=== PATIENT | female | born 1955 | race Caucasian/White ===

== ENCOUNTER 2020-09-12 11:49 | Outpatient (REF) | payer MEDICARE, MEDICAID, SELFPAY ==
--- NOTE | 2020-09-12 11:53 | MM_ITS ---
EXAMINATION: MM SCREENING DIGITAL BREAST TOMOSYNTHESIS, BILATERAL CLINICAL INFORMATION: Screening. Asymptomatic. The lifetime risk of breast cancer based on the Tyrer-Cuzick Model is 9%. COMPARISON: Mammography: 08/16/2019, 05/03/2018, 04/22/2017 TECHNIQUE: Digital breast tomosynthesis is performed in both the craniocaudal and mediolateral oblique views along with computer-aided detection (CAD). Synthesized 2D images are generated from the tomosynthesis. FINDINGS: There are scattered areas of fibroglandular density (ACR BI-RADS breast composition Category b). There is no suspicious mass or architectural abnormality. No abnormal calcifications. Left breast shows no significant change. The axilla and skin contours are unremarkable. Right breast has a 4 x 5 mm circumscribed nodule mid 5:30-6:00 position best appreciated on tomography, not seen with certainty on prior study. This may represent a small cyst. Patient will be recalled for additional imaging. MM/MM tomosynthesis screening BI IMPRESSION: 1. Right: Small circumscribed nodule mid 5:30- 6:00 position, possibly a cyst. 2. Left: No mammographic evidence of malignancy. ASSESSMENT: BI-RADS 0: Incomplete - Need Additional Imaging Evaluation RECOMMENDATION: 1. Targeted ultrasound right breast. 2. Radiology department staff will contact the patient for additional imaging. This patient's information was entered into a reminder system with a target due date for their next mammogram.
== END 2020-09-12 11:50 | disposition home or self-care (01) ==
LOC: HO.MAMMO 11:49
PROVIDERS: PCP Internal Medicine; Visit Provider Internal Medicine
DX: Z12.31 Encounter for screening mammogram for malignant neoplasm of breast (principal)
CPT/HCPCS: 77063; 77067

== ENCOUNTER 2020-10-09 11:00 | Outpatient (REF) | payer MEDICARE, MEDICAID, SELFPAY ==
--- NOTE | 2020-10-09 11:05 | US_ITS ---
EXAMINATION: US DIAGNOSTIC ULTRASOUND BREAST, RIGHT CLINICAL INFORMATION: Recall from screening for circumscribed nodule inferior right breast. COMPARISON: Mammography 09/12/2020; outside exams 08/16/2019 and 05/03/2018. TECHNIQUE: Ultrasound right breast is targeted to the lower quadrant. Grayscale imaging and color Doppler are performed without and with harmonics. FINDINGS: There are 2 adjacent circumscribed nodules 5:00 to 6:00 position 3 cm from nipple, the larger measuring 5 x 5 x 3 mm and the smaller 4 x 3 mm. Both shows smooth margins and increased through-transmission of sound at real-time imaging and no associated color flow. There are low level internal echoes, possibly protein content related to mildly complicated cyst. No internal septation or solid component. In retrospect, there is a small nodule in the lower right breast suggested on outside right CC view 2018. Results are discussed with the patient at time of visit. US/US breast RT limited IMPRESSION: 2 circumscribed nodules likely mildly complicated cyst lower right breast, 5 mm and 4 mm, with low level internal echoes. ASSESSMENT: BI-RADS 3: Probably Benign RECOMMENDATION: Diagnostic right mammography in 6 months. This patient's information was entered into a reminder system with a target due date for their next mammogram.
== END 2020-10-09 11:01 | disposition home or self-care (01) ==
LOC: HO.MAMMO 11:00
PROVIDERS: Visit Provider Internal Medicine
DX: N63.14 Unspecified lump in the right breast, lower inner quadrant (principal)
CPT/HCPCS: 76642

== ENCOUNTER 2021-01-07 15:28 | Outpatient (REF) | payer MEDICARE, MEDICAID, SELFPAY ==
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
== END 2021-01-07 15:29 | disposition home or self-care (01) ==
LOC: HO.SH 15:28
PROVIDERS: Visit Provider Internal Medicine
DX: Z46.1 Encounter for fitting and adjustment of hearing aid (principal); H90.3 Sensorineural hearing loss, bilateral
CPT/HCPCS: 92557; 92567; 92593; 99499

== ENCOUNTER 2021-01-09 15:21 | Outpatient (REF) | payer MEDICARE, MEDICAID, SELFPAY | END 2021-01-09 15:22 | disposition home or self-care (01) | LOC: HO.HAP 15:21 | PROVIDERS: Visit Provider Internal Medicine | DX: Z13.89 Encounter for screening for other disorder (principal) ==

== ENCOUNTER 2021-01-22 14:19 | Outpatient (REF) | payer MEDICARE, MEDICAID, SELFPAY | END 2021-01-22 14:20 | disposition home or self-care (01) | LOC: HO.HAP 14:19 | PROVIDERS: Visit Provider Internal Medicine | DX: Z46.1 Encounter for fitting and adjustment of hearing aid (principal) | CPT/HCPCS: V5014; V5266 ==

== ENCOUNTER 2021-02-20 10:09 | Outpatient (REF) | payer MEDICARE, MEDICAID, SELFPAY ==
[2021-02-20 11:40] LABS: MANUAL DIFF FLAG NO
[2021-02-20 11:44] LABS: Basophils Percent Auto 0.5 % (0-2); Eosinophils Absolute Auto 0.3 X10*3/uL (0.0-0.4); Eosinophils Percent Auto 3.7 % (0-4); Hematocrit 39.8 % (37-47); Hemoglobin 12.9 g/dl (12.0-16.0); Imm Gran Abs Auto 0.03 X10*3/uL (0.00-0.03); Imm Gran Pct Auto 0.3 % (0.0-0.4); Lymphocytes Absolute Auto 2.5 X10*3/uL (1.2-4.9); Lymphocytes Percent Auto 29.2 % (20-40); Mean Corpuscular HGB Conc 32.4 g/dl (31.0-35.0); Mean Corpuscular Volume 86.3 fL (80-98); Mean Platelet Volume 10.2 fL (9.4-12.3); Monocytes Absolute Auto 0.7 X10*3/uL (0.1-1.2); Monocytes Percent Auto 8.2 % (2-11); Neutrophils Percent Auto 58.1 % (45-73); Platelet Count 230 X10*3/uL (160-400); Red Blood Count 4.61 X10*6/uL (4.20-5.50); Red Cell Distribution Width 13.3 % (11.0-16.0); White Blood Count 8.6 X10*3/uL (4.8-10.8)
[2021-02-20 12:06] LABS: Alanine Aminotransferase 21 U/L (0-31); Albumin Level 4.3 g/dL (3.5-5.0); Alkaline Phosphatase 64 U/L (39-117); Anion Gap 11 (12-20); Aspartate Amino Transferase 20 U/L (5-31); Bilirubin Total 0.8 mg/dL (0.0-1.0); Blood Urea Nitrogen 16 mg/dL (9-16); Calcium 9.6 mg/dL (8.4-10.2); Carbon Dioxide 31 mmol/L (22-29); Chloride 103 mmol/L (96-108); Cholesterol 153 mg/dL; Estimated Glomerular Filt Rate > 60; Glucose Random 118 mg/dL (60-115); HDL Cholesterol 37 mg/dL; LDL Cholesterol Calculated 91 mg/dl; Sodium 141 mmol/L (135-145); Total Protein 6.9 g/dL (6.5-8.0); Triglycerides 125 mg/dL
[2021-02-20 12:29] LABS: Free T4 (Free Thyroxine) 0.88 ng/dL (0.71-1.85); Thyroid Stimulating Hormone 1.76 uIU/mL (0.32-4.0); Vitamin D 25-OH Total 41.6 ng/mL (>30)
[2021-02-20 13:03] LABS: Folate > 20.0 ng/mL (> or = 4.0); Vitamin B12 855 pg/mL (200-900)
== END 2021-02-20 10:10 | disposition home or self-care (01) ==
LOC: HO.LAB 10:09
PROVIDERS: PCP Internal Medicine; Visit Provider Internal Medicine
DX: E78.00 Pure hypercholesterolemia, unspecified (principal); I10 Essential (primary) hypertension
CPT/HCPCS: 36415; 80053; 80061; 82306; 82607; 82746; 84439; 84443; 85025

== ENCOUNTER 2021-03-19 10:34 | Outpatient (REF) | payer MEDICARE, MEDICAID, SELFPAY ==
--- NOTE | ~2021-03-19 | MM_ITS ---
EXAMINATION: BONE DENSITOMETRY CLINICAL INDICATION: Osteopenia. COMPARISON: None (current study represents initial baseline exam). TECHNIQUE: Using a [employer] DXA System (software version: 13.1) manufactured by [employer], dual-energy x-ray absorptiometry was performed of the lumbar spine and left hip. The images are of good technical quality. Summary results are attached. FINDINGS: AP SPINE L1-L4: BMD 1.245 g/cm2, Z-score 1.4, T-score 0.5, normal. LEFT FEMUR, NECK: BMD 0.800 g/cm2, Z-score -0.7, T-score -1.7, osteopenia. LEFT FEMUR, TOTAL: BMD 1.026 g/cm2, Z-score 0.9, T-score 0.1, normal. IDENTIFIED RISK FACTORS: Early menopause, height loss, hysterectomy, secondary osteoporosis. HISTORY OF FRACTURE: None listed. MEDICATIONS: Calcium, vitamin D. MM/XR DEXA axial skeleton IMPRESSION: 1. DIAGNOSIS: Osteopenia based on the lowest T-score value of -1.7 in the femoral neck applying World Health Organization criteria. 2. 10-YEAR FRACTURE RISK PREDICTION, FRAX: Major osteoporotic fracture (clinical spine, forearm, hip or shoulder) 9.1%. Hip fracture 1.1%. 3. Treatment Recommendations: NOF guidelines recommend consideration for treatment in postmenopausal women and men age 50 and older presenting with the following: -A hip or vertebral (clinical or morphometric) fracture. -T-score less than or equal to -2.5 at the femoral neck or spine after appropriate evaluation to exclude secondary causes. -Low bone mass at the hip or spine and a 10-year fracture probability by FRAX of greater than or equal to 3% for hip fracture or greater than or equal to 20% for major osteoporotic fracture based on the [place] adapted WHO algorithm. 4. Other Recommendations: All treatment decisions require clinical judgment and consideration of individual patient factors, including patient preferences, comorbidities, previous drug use, risk factors not captured in the FRAX model (e.g. frailty, falls, vitamin D deficiency, increased bone turnover, interval significant decline in bone density) and possible under or overestimation of fracture risk by FRAX. Additional medical evaluation for secondary cause of low bone mineral density may be appropriate. FUTURE SCAN RECOMMENDATION: People with diagnosed cases of osteoporosis or at high risk for fracture should have regular bone mineral density tests. For patients eligible for Medicare, routine testing is allowed once every 2 years. The testing frequency can be increased to one year for patients who have rapidly progressing disease, those who are receiving or discontinuing medical therapy to restore bone mass, or have additional risk factors.
== END 2021-03-19 10:35 | disposition home or self-care (01) ==
LOC: HO.MAMMO 10:34
PROVIDERS: Visit Provider Internal Medicine
DX: M81.8 Other osteoporosis without current pathological fracture (principal); M85.89 Other specified disorders of bone density and structure, multiple sites; Z78.0 Asymptomatic menopausal state; Z90.710 Acquired absence of both cervix and uterus
CPT/HCPCS: 77080

== ENCOUNTER → 2021-03-20 12:49 | Outpatient (REF) | payer MEDICARE, MEDICAID, SELFPAY | LOC: HO.SL 12:49 | PROVIDERS: PCP Internal Medicine; Visit Provider Internal Medicine | DX: G47.10 Hypersomnia, unspecified (principal); G47.33 Obstructive sleep apnea (adult) (pediatric) | CPT/HCPCS: 95806 ==

== ENCOUNTER 2021-04-08 12:24 | Outpatient (REF) | payer MEDICARE, MEDICAID, SELFPAY ==
--- NOTE | ~2021-04-08 | MM_ITS ---
EXAMINATION: MM DIAGNOSTIC DIGITAL BREAST TOMOSYNTHESIS, RIGHT CLINICAL INFORMATION: 2 small circumscribed nodules lower right breast for short interval six-month follow-up. The lifetime risk of breast cancer based on the Tyrer-Cuzick Model is 7%. COMPARISON: Mammography: 09/12/2020 (BI-RADS 0), outside mammography 08/16/2019 and 05/03/2018 ([facility]); targeted right breast ultrasound 10/09/2020. TECHNIQUE: Digital breast tomosynthesis is performed in both the craniocaudal and mediolateral oblique views along with computer-aided detection (CAD). Synthesized 2D images are generated from the tomosynthesis. FINDINGS: There are scattered areas of fibroglandular density (ACR BI-RADS breast composition Category b). The 2 small nodules 5:30 o'clock mid right breast are stable to borderline decreased. There is no developing density or architectural abnormality or abnormal calcifications. Left breast will be reassessed again at time of annual bilateral exam, due in 6 months. Results are provided to the patient at time of visit by the technologist. MM/MM tomosynthesis diagnostic RT IMPRESSION: Probable benign nodularity mid lower right breast stable to borderline decreased. ASSESSMENT: BI-RADS 3: Probably Benign RECOMMENDATION: Diagnostic mammography at time of bilateral annual exam, due in 6 months. This patient's information was entered into a reminder system with a target due date for their next mammogram.
== END 2021-04-08 12:25 | disposition home or self-care (01) ==
LOC: HO.MAMMO 12:24
PROVIDERS: PCP Internal Medicine; Visit Provider Internal Medicine
DX: N63.14 Unspecified lump in the right breast, lower inner quadrant (principal)
CPT/HCPCS: 77061; 77065

== ENCOUNTER 2021-05-07 13:01 | Outpatient (REF) | payer MEDICARE, MEDICAID, SELFPAY ==
--- NOTE | 2021-05-07 13:08 | EEG_ITS ---
The waking background activity consists of a well-defined moderate voltage posterior 9 to 10 hertz alpha frequency, intermixed anteriorly with low-voltage fast frequencies. Drowsiness is characterized by diffuse theta slowing. During sleep, symmetrical frontal central sleep spindles and vertex sharp transients developed over both hemispheres. Arousals are unremarkable. The patient remains asymptomatic. No focal, lateralizing, or paroxysmal discharges seen. IMPRESSION: This 24-hour ambulatory EEG is within normal limits. MD DELANEY Meléndez/MONIQUE / [phone]
== END 2021-05-07 13:02 | disposition home or self-care (01) ==
LOC: HO.NEURO 13:01
PROVIDERS: Visit Provider Psychiatry & Neurology Neurology
DX: G40.909 Epilepsy, unspecified, not intractable, without status epilepticus (principal)
CPT/HCPCS: 95708; 95957

== ENCOUNTER 2021-05-09 14:24 | Outpatient (REF) | payer MEDICARE, MEDICAID, SELFPAY ==
[2021-05-09 15:33] LABS: MANUAL DIFF FLAG NO
[2021-05-09 15:42] LABS: Basophils Percent Auto 0.3 % (0-2); Eosinophils Absolute Auto 0.3 X10*3/uL (0.0-0.4); Eosinophils Percent Auto 3.1 % (0-4); Hematocrit 38.9 % (37-47); Hemoglobin 13.1 g/dl (12.0-16.0); Imm Gran Abs Auto 0.03 X10*3/uL (0.00-0.03); Imm Gran Pct Auto 0.3 % (0.0-0.4); Lymphocytes Absolute Auto 2.7 X10*3/uL (1.2-4.9); Lymphocytes Percent Auto 24.5 % (20-40); Mean Corpuscular HGB Conc 33.7 g/dl (31.0-35.0); Mean Corpuscular Hemoglobin 29.2 pg (27.0-33.0); Mean Corpuscular Volume 86.8 fL (80-98); Mean Platelet Volume 9.8 fL (9.4-12.3); Monocytes Absolute Auto 0.7 X10*3/uL (0.1-1.2); Monocytes Percent Auto 6.5 % (2-11); Neutrophils Absolute Auto 7.3 X10*3/uL (2.0-8.3); Neutrophils Percent Auto 65.3 % (45-73); Platelet Count 228 X10*3/uL (160-400); Red Blood Count 4.48 X10*6/uL (4.20-5.50); Red Cell Distribution Width 13.1 % (11.0-16.0); White Blood Count 11.1 X10*3/uL (4.8-10.8)
[2021-05-10 11:01] LABS: Immunoglobulin E 22 kU/L (<OR=114)
== END 2021-05-09 14:25 | disposition home or self-care (01) ==
LOC: HO.LAB 14:24
PROVIDERS: PCP Internal Medicine; Visit Provider Internal Medicine Pulmonary Disease
DX: G47.33 Obstructive sleep apnea (adult) (pediatric) (principal); J45.20 Mild intermittent asthma, uncomplicated; Z79.899 Other long term (current) drug therapy; Z91.09 Other allergy status, other than to drugs and biological substances
CPT/HCPCS: 36415; 82785; 85025; 86003; 99202

== ENCOUNTER 2021-05-30 13:48 | Outpatient (REF) | payer MEDICARE, MEDICAID, SELFPAY ==
--- NOTE | 2021-05-30 17:13 | PFT_ITS ---
Forced vital capacity, FEV1, [id number] are all markedly decreased. MVV is slightly decreased. Post bronchodilator therapy, there is no significant change. Total lung capacity and residual volume moderately decreased. Diffusion capacity is also moderately decreased. CONCLUSION: Moderately severe restrictive pulmonary disorder. A mild degree of obstructive airway disorder involving small airways. No significant response to bronchodilator therapy. MD LORENZO Zarate/MONIQUE / [phone]
== END 2021-05-30 13:49 | disposition home or self-care (01) ==
LOC: HO.RESP 13:48
PROVIDERS: PCP Internal Medicine; Visit Provider Internal Medicine Pulmonary Disease
DX: J45.20 Mild intermittent asthma, uncomplicated (principal)
CPT/HCPCS: 94060; 94727; 94729

== ENCOUNTER → 2021-06-04 13:50 | Outpatient (BNVA) | payer MEDICARE, MEDICAID, SELFPAY | PROVIDERS: PCP Internal Medicine; Visit Provider Internal Medicine Pulmonary Disease | DX: G47.33 Obstructive sleep apnea (adult) (pediatric) (principal); J45.20 Mild intermittent asthma, uncomplicated | CPT/HCPCS: 99212 ==

== ENCOUNTER 2021-11-01 13:47 | Outpatient (REF) | payer MEDICARE, MEDICAID, SELFPAY ==
--- NOTE | ~2021-11-01 | MM_ITS ---
EXAMINATION: MM DIAGNOSTIC DIGITAL BREAST TOMOSYNTHESIS, BILATERAL Targeted left breast ultrasound. CLINICAL INFORMATION: Six-month follow-up right breast densities. Family history of breast cancer. The lifetime risk of breast cancer based on the Tyrer-Cuzick Model is 8.7%. COMPARISON: Mammography: April 08, 2021 and studies dating back to April 22, 2017. TECHNIQUE: Digital breast tomosynthesis is performed in both the craniocaudal and mediolateral oblique views along with computer-aided detection (CAD). Synthesized 2D images are generated from the tomosynthesis. Targeted left breast ultrasound. FINDINGS: There are scattered areas of fibroglandular density (ACR BI-RADS breast composition Category b). Previously noted right breast densities are not evident or are smaller and therefore ultrasound was not performed of the right breast. There is a stable parenchymal pattern of the right breast. There are noted to be 3 circumscribed densities about the lateral aspect of the left breast measuring from 5 to 4 mm in size with one lying approximately 1.4 cm from nipple, a second approximately 5 cm from nipple, and the third approximately 8 cm from the nipple. Targeted ultrasound to the lateral aspect of the left breast demonstrated at the 5 o'clock position approximately 2 cm and nipple a hypoechoic circumscribed lesion measuring approximately 5 x 4 x 3 mm in size with mild distal sound enhancement and no internal vascularity likely representing a complex cyst. At approximately the 3 o'clock position 7 cm from nipple there is a 3 x 4 x 3 mm circumscribed heterogeneous hypoechoic lesion without distal sound shadowing or enhancement. No internal vascularity is appreciated. The lesion is wider than it is tall. This does appear to be solid. There are also noted to be a few scattered simple appearing cyst. Results are discussed with the patient at time of visit. MM/MM tomosynthesis diagnostic BI IMPRESSION: 1. No significant right breast findings identified. 2. Multiple circumscribed densities lateral aspect of the left breast some of which appear to represent cysts but one which appears solid and the other representing a complex cyst. Recommend 6 month follow-up left breast mammogram and ultrasound examination. ASSESSMENT: BI-RADS 3: Probably Benign RECOMMENDATION: Diagnostic mammography in 6 months. This patient's information was entered into a reminder system with a target due date for their next mammogram.
--- NOTE | ~2021-11-01 | US_ITS ---
EXAMINATION: US DIAGNOSTIC ULTRASOUND BREAST, LEFT CLINICAL INFORMATION: Left breast nodules. COMPARISON: Mammography of same day. TECHNIQUE: Ultrasound of the breast is performed with real-time carney scale imaging and color Doppler. FINDINGS: Targeted ultrasound to the lateral aspect of the left breast demonstrated at the 5:00 position approximately 2 cm and nipple a hypoechoic circumscribed lesion measuring approximately 5 x 4 x 3 mm in size with mild distal sound enhancement and no internal vascularity likely representing a complex cyst. At approximately the 3:00 position 7 cm from nipple there is a 3 x 4 x 3 mm circumscribed heterogeneous hypoechoic lesion without distal sound shadowing or enhancement. No internal vascularity is appreciated. The lesion is wider than it is tall. This does appear to be solid. Are also noted to be a few scattered simple appearing cyst. Results are discussed with the patient at time of visit. US/US breast LT limited IMPRESSION: No significant right breast findings identified. Multiple circumscribed densities lateral aspect of the left breast some of which appear to represent cysts but one which appears solid and the other representing a complex cyst. Recommend 6 month follow-up left breast mammogram and ultrasound examination. ASSESSMENT: BI-RADS 3: Probably Benign RECOMMENDATION: Diagnostic mammography in 6 months.
== END 2021-11-01 13:48 | disposition home or self-care (01) ==
LOC: HO.MAMMO 13:47
PROVIDERS: PCP Internal Medicine; Visit Provider Internal Medicine
DX: R92.2 Inconclusive mammogram (principal); N63.25 Unspecified lump in the left breast, overlapping quadrants
CPT/HCPCS: 76642; 77062; 77066

== ENCOUNTER → 2021-12-03 13:50 | Outpatient (BNVA) | payer MEDICARE, MEDICAID, SELFPAY | PROVIDERS: PCP Internal Medicine; Visit Provider Internal Medicine Pulmonary Disease | DX: J45.20 Mild intermittent asthma, uncomplicated (principal); G47.33 Obstructive sleep apnea (adult) (pediatric) | CPT/HCPCS: 99212 ==

== ENCOUNTER 2022-05-06 12:41 | Outpatient (REF) | payer MEDICARE, MEDICAID, SELFPAY ==
--- NOTE | ~2022-05-06 | MM_ITS ---
EXAMINATION: MM DIAGNOSTIC DIGITAL BREAST TOMOSYNTHESIS, LEFT US DIAGNOSTIC ULTRASOUND BREAST, LEFT CLINICAL INFORMATION: Short interval follow-up probable benign small circumscribed nodularity anterior mid outer left breast. The lifetime risk of breast cancer based on the Tyrer-Cuzick Model is 4%. COMPARISON: Mammography: 11/01/2021 (diagnostic, BI-RADS 3), 09/12/2020, outside mammography 08/16/2019 ([facility]). TECHNIQUE: Digital breast tomosynthesis is performed in both the craniocaudal and mediolateral oblique views along with computer-aided detection (CAD). Synthesized 2D images are generated from the tomosynthesis. Ultrasound left breast is targeted to the outer breast using grayscale imaging and color Doppler without and with harmonics. FINDINGS: There are scattered areas of fibroglandular density (ACR BI-RADS breast composition Category b). Parenchymal pattern is similar to prior exam. Benign-appearing fine circumscribed nodularity anterior to mid outer left breast is stable. There is no increasing nodule or architectural abnormality or developing density. No abnormal calcifications. The axilla and skin contours are unremarkable. Ultrasound left breast demonstrates stable circumscribed complicated apocrine cyst 3:00 position 7 cm from nipple measuring approximately 4 x 3 mm. There are some fine internal echoes again seen. No associated solid component or color flow. The other complicated cyst described on prior ultrasound 5:00 position is not imaged by ultrasound. The mammography appears stable. There is no new nodule or architectural abnormality or focal duct ectasia. Results are provided to the patient at time of visit by the technologist. MM/MM tomosynthesis diagnostic LT IMPRESSION: -Fine nodularity outer left breast stable from prior diagnostic exam. No significant changes. -Probable apocrine cyst 3:00 position on ultrasound, stable. Ultrasound finding 5:00 position not demonstrated on current exam. No significant changes. ASSESSMENT: BI-RADS 3: Probably Benign RECOMMENDATION: Diagnostic bilateral mammography at time of annual bilateral exam, due in 6 months. This patient's information was entered into a reminder system with a target due date for their next mammogram.
== END 2022-05-06 12:42 | disposition home or self-care (01) ==
LOC: HO.MAMMO 12:41
PROVIDERS: PCP Internal Medicine; Visit Provider Internal Medicine
DX: R92.2 Inconclusive mammogram (principal)
CPT/HCPCS: 76642; 77061; 77065

== ENCOUNTER 2022-05-22 12:33 | Outpatient (REF) | payer MEDICARE, MEDICAID, SELFPAY ==
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
--- NOTE | 2022-05-23 11:38 | MHC.AU.HAS ---
Hearing Aid Evaluation Date of Visit: 05/22/22 Historical Information: Description of Hearing: See audiogram Current personal amplification information, if applicable: Pair of Phonak Bolero V50M BTEs, obtained 05/27/2017 Summary: Patient was seen for audiological re-evaluation (see separate report for details). There has been a slight decrease in the hearing, worse in the right ear. Her right hearing aid has recently stopped working. Both hearing aids were inspected and cleaned. Slim tubes and domes were replaced. The right side is still not turning on. Patient is eligible for new hearing aids. Options were discussed. She would like a rechargeable EDWIN. Hearing Aid Prescription: Based on the individual?s shared listening needs, communication environments, dexterity, desire for connectivity, and personal preferences, the following prescription for amplification has been made: Right ear: Salesperson Books: Phonak Model: Audeo P70-R Battery Size: Rechargeable Color: Black Briquette Molder: 2M Left ear: Salesperson Books: Phonak Model: Audeo P70-R Battery Size: Rechargeable Color: Black Briquette Molder: 2M Tubing: Size 2 slim tube Action Taken/Action Needed: Medical Clearance to be requested from PCP/ENT Hearing Instrument Fitting to be scheduled when materials arrive Primary Diagnosis: H90.3 Bilateral Sensorineural Hearing Loss Signature: Provider: Rhea Salmon, [facility]-A
--- NOTE | 2022-05-23 11:43 | MHC.AU.MED ---
Medical Clearance for Hearing Instrumentation Date: 05/23/22 Patient Name: Daya Bobo Date of : 1955 Referring Provider: Mena Paula MD We have seen your patient on 05/22/22 and have determined that they are a candidate for amplification (See accompanying report). Specifically, they would benefit from: Hearing aid use in both ears There is a statute that addresses Medical Evaluation Requirements prior to fitting a patient with a hearing aid. According to [place] statute 265 CMR:6.03(1), (a) General. Except as provided in 265 CMR 6.03(1)(b), a hearing aid assembly supervisor shall not sell a hearing aid unless the prospective user has presented to the hearing aid assembly supervisor a written statement signed by a licensed physician that states that the patient's hearing loss has been medically evaluated and the patient may be considered a candidate for a hearing aid. The medical evaluation must have taken place within the preceding six months. Please note: Due to the [place] Statute referenced above, we cannot accept a signature other than that of a licensed physician. ARTIFICIAL INTELLIGENCE SPECIALIST and PA signatures cannot be accepted. I am in agreement with the above recommendation. There is no medical contraindication for hearing instrumentation. Physician Signature Date Physician Name (Printed)
== END 2022-05-22 12:34 | disposition home or self-care (01) ==
LOC: HO.SH 12:33
PROVIDERS: Visit Provider Internal Medicine
DX: Z01.118 Encounter for examination of ears and hearing with other abnormal findings (principal); Z46.1 Encounter for fitting and adjustment of hearing aid; H90.3 Sensorineural hearing loss, bilateral
CPT/HCPCS: 92557; 92567; 92591

== ENCOUNTER 2022-06-18 10:40 | Outpatient (REF) | payer MEDICARE, MEDICAID, SELFPAY ==
--- NOTE | 2022-06-18 11:39 | MHC.AU.HFA ---
Hearing Instrument Fitting- Adult- Binaural Date of Visit: 06/18/22 Hearing Instruments Dispensed: Right Ear: Contracting Specialist: Phonak Model: Audeo P70-R Serial Number: [id number] Repair Warranty: 08/24/2025 Loss and Damage Warranty: 08/24/2025 Service Plan: 06/18/2023 Battery Size: Rechargeable Color: Black Surgical Tech: 1M Type of Dome: Small open dome Type of Wax Guard: CeruShield Left Ear: Contracting Specialist: Phonak Model: Audeo P70-R Serial Number: [id number] Repair Warranty: 08/24/2025 Loss and Damage Warranty: 08/24/2025 Service Plan: 06/18/2023 Battery Size: Rechargeable Color: Black Surgical Tech: 1M Type of Dome: Small open dome Type of Wax Guard: CeruShield Summary of Fitting: Initially, size 2M receivers were ordered. When tried on her ears, the receivers were too long- switched for size 1M. Feedback clinical marketing manager run. Verifit performed and levels adjusted to better reach targets. Patient was pleased with the sound of the instruments and did not feel any additional adjustments were necessary. Hearing aid care and maintenance were discussed and practiced. Hearing aids were paired to her phone and to the buddy. Recommendations: Patient is an experienced hearing aid user. She will let us know if follow-up is needed. Diagnosis Code(s): Primary Diagnosis: H90.3 Bilateral Sensorineural Hearing Loss Signature: Provider: Rhea Salmon, [facility]
== END 2022-06-18 10:41 | disposition home or self-care (01) ==
LOC: HO.HAP 10:40
PROVIDERS: Visit Provider Internal Medicine
DX: Z46.1 Encounter for fitting and adjustment of hearing aid (principal); H90.3 Sensorineural hearing loss, bilateral
CPT/HCPCS: V5011; V5020; V5160; V5261

== ENCOUNTER → 2022-07-04 13:38 | Outpatient (BNVA) | payer MEDICARE, MEDICAID, SELFPAY | PROVIDERS: PCP Family Medicine; Visit Provider Internal Medicine Pulmonary Disease | DX: J45.20 Mild intermittent asthma, uncomplicated (principal); Z91.09 Other allergy status, other than to drugs and biological substances | CPT/HCPCS: 99212 ==

== ENCOUNTER 2022-11-06 13:42 | Outpatient (REF) | payer MEDICARE, MEDICAID, SELFPAY ==
--- NOTE | ~2022-11-06 | MM_ITS ---
EXAMINATION: MM DIAGNOSTIC DIGITAL BREAST TOMOSYNTHESIS, BILATERAL US TARGETED BREAST, LEFT CLINICAL INFORMATION: Yearly screening right mammography and 6-month follow up of left breast densities. The lifetime risk of breast cancer based on the Tyrer-Cuzick Model is 4.0%. COMPARISON: Mammography: 05/06/2022 and studies dating back to 04/22/2017. TECHNIQUE: Digital breast tomosynthesis is performed in both the craniocaudal and mediolateral oblique views along with computer-aided detection (CAD). Synthesized 2D images are generated from the tomosynthesis. Additional left breast spot compression views in craniocaudal and 90-degree mediolateral views performed. Targeted left breast ultrasound. FINDINGS: There are scattered areas of fibroglandular density (ACR BI-RADS breast composition Category b). No aggressive changes of the circumscribed nodules within the left breast are identified. There is, however, a region of asymmetric density in the central aspect of the left breast for which spot compression view was performed which effaced the lesion with some residual dense parenchyma present. A targeted left breast ultrasound was then performed which did not demonstrate any abnormal cystic or solid mass. No region of abnormal distal sound shadowing was identified. No edematous change is seen within the parenchyma. Recommend 6-month followup left breast mammogram to ensure stability. Results are discussed with the patient at time of visit. MM/MM tomosynthesis diagnostic BI IMPRESSION: Left breast findings for 6-month follow up as described. ASSESSMENT: BI-RADS 3: Probably benign. RECOMMENDATION: Diagnostic mammography in 6 months. This patient's information was entered into a reminder system with a target due date for their next mammogram.
== END 2022-11-06 13:43 | disposition home or self-care (01) ==
LOC: HO.MAMMO 13:42
PROVIDERS: PCP Family Medicine; Referring Provider Family Medicine; Visit Provider Internal Medicine
DX: R92.2 Inconclusive mammogram (principal)
CPT/HCPCS: 76642; 77062; 77066

== ENCOUNTER → 2023-03-17 10:38 | Outpatient (BNVA) | payer MEDICARE, MEDICAID, SELFPAY | PROVIDERS: PCP Family Medicine; Visit Provider Internal Medicine Pulmonary Disease | DX: J45.20 Mild intermittent asthma, uncomplicated (principal); G47.33 Obstructive sleep apnea (adult) (pediatric); Z79.899 Other long term (current) drug therapy | CPT/HCPCS: 99212 ==

== ENCOUNTER 2023-11-11 13:41 | Outpatient (AMB) | payer MEDICARE, SELFPAY ==
--- OUTSIDE RECORDS SUMMARY | 2023-11-11 13:43 | XMS_ITS | Patient Health Record ---
Author Name Unknown [facility] Address [address] [address] Care Team Providers Care Cotton Candy Maker Name Role Phone Stephanie Neri Unavailable [phone] ALLERGIES Allergen (clinical drug ingredient) Drug/Non Drug Allergy documented on EMR Reaction Allergy Type Onset Date Status oxycodone Oxycodone rash Drug Allergy Active REASON FOR REFERRAL No Information MEDICATIONS Medication SIG (Take, Route, Frequency, Duration) Notes Start Date End Date Status Vitamin D3 Active ProAir HFA 108 (90 Base) MCG/ACT 1 puff as needed Inhalation every 4 hrs Not-Takin g Lisinopril Active metFORMIN HCl Not-Ta jose armando HumaLOG Active Vitamin C Active Losartan Potassium 50 MG 1 tablet Orally Once a day for 30 day(s) Active BD Pen - as directed Active Breo Ellipta Active Extra Depth Orthopedic Shoes (1 Pair) with Customized Heat Molded Multidensity Innersoles (3 Pair) as directed Dx: NIDDM/Polyneuropathy (E11.42), Hammertoe Foot Deformity (M20.41,M20.42), Preulcerative Skin Lesion(s) (L85.1 Active levETIRAcetam 750 MG 1 tablet Orally Twi ce a day Active Extra Depth Orthopedic Shoes (1 Pair) with Customized Heat Molded Multidensity Innersoles (3 Pair) as directed Dx: NIDDM/Polyneuropathy (E11.42), Hammertoe Foot Deformity (M20.41,M20.42), Preulcerative Skin Lesion(s) (L85.1 01/10/2021 Active Atorvastatin Calcium 40 MG 1 tablet Orally Once a day for 30 day(s) Active Lantus SoloStar 100 UNIT/ML as directed Subcutaneous Act sreekanth Aspir-Low 81 MG 1 tablet Orally Once a day for 30 day(s) Active IMMUNIZATIONS Vaccine Route Administration Date Status Comme nts COVID-19 Pfizer BioNTech Vaccine Unknown 01/18/2022 Administered 1st 02/05/21 2nd 02/26/21 3rd 06/10/21 Influenza Unknown 07/20/2020 Administered Influenza Unknown 07/12/2021 Administered SOCIAL HISTORY Tobacco Use: Social History Observation Description Date Details (start date - stop date) Never Smoker NA - NA Sex Assigned At : Social History Observation Description Sex Assigned At Unknown Tobacco Use/Smoking Question Answer Notes Are you a: nonsmoker Additional Findings: Tobacco Non-User Aggressive non-smoker Alcohol Screen Question Answer Notes Did you have a drink containing alcohol in the p ast year? No Points 0 Interpretation Negative Tobacco use other than smoking: Question Answer Notes Are you an other tobacco user? No PROBLEMS Problem Type ICD Code Onset Dates Problem Status W/U Status Risk SNOMED Code Notes Problem Hammer toe of left foot (M20.42) Active confirmed [id number] Problem Type 2 diabetes mellitus with polyneuropathy (E11.42) Active confirmed [id number] Encounters Encounter Location Date Provider Diagnosis [facility] [address] [place] [address] 11[facility]19[facility]2022 [facility] [address] 11/20/2022 Stephanie Neri PLAN OF TREATMENT No Information Insurance Providers Payer Name Payer Address Payer Phone Subscriber Number Group Number Insured Name Patient Relationship to Insured Coverage Start Date Coverage End Date [employer] [address] [place] [phone] [id number] Daya Bobo Self - patient is the insured MEDICAL (GENERAL) HISTORY Medical History History ICD Code type II diabetes High blood pressure Kidney disease Epilepsy Surgical History Surgery Date(Month/Year) spine surgery left leg surgery upper thigh - Sciatica gall bladder Hospitalization History Reason Date(Month/Year) [facility]- seizure 01/23/21
[2023-11-11 14:29] VITALS: BP 140/70; PULSE 8; TEMP 36.9; O2SAT 96; BMI 37.7
--- NOTE | 2023-11-11 14:29 | MHC.OFFWIV ---
Intake Vital Signs 11/11/23 14:29 Height 5 ft 3 in Weight 213 lb BMI 37.7 BP 140/70 H Blood Pressure Location Lt brachial Position Sitting Pulse 8 L Pulse Source Pulse Oximeter Temp 98.4 F Temp Source Temporal Artery Scan Pulse Oximetry (%) 96 Oxygen Delivery Method Room Air Intake Visit Reasons: EST/ rash private are(lobby) Intake Note: pt is here today for rash private area started 1 month ago Patient Tobacco Use Status: Never used Tobacco Allergies oxycodone Allergy (Unknown, Verified 11/11/23 15:16) rash lisinopril Adverse Reaction (Intermediate, Verified 11/11/23 15:16) leg swelling metformin Adverse Reaction (Intermediate, Verified 11/11/23 15:16) diarrhea Medication List - Last Reconciled 11/11/23 by Forrest Teran MD aspirin 81 mg PO DAILY atorvastatin 40 mg PO BEDTIME 90 days [AUTOPAP 5-20 cm H2O humidified AIR As directed] blood pressure monitor (Blood Pressure Kit) As directed blood sugar diagnostic (FreeStyle Lite Strips) As directed check the BS TID blood sugar diagnostic (OneTouch Verio test strips) As directed check blood sugars 3 times a day blood-glucose meter (OneTouch Verio Flex Start kit) As directed check blood sugars 3 times a day [Diabetic shoes As directed] fluticasone furoate-vilanterol 200-25 mcg/dose (Breo Ellipta) 1 ea inhalation DAILY insulin degludec (Tresiba FlexTouch U-100 insulin) 65 units (0.65 mL) subcut DAILY lancets (FreeStyle Lancets) As directed check BS TID levetiracetam 750 mg PO BID 30 days losartan 100 mg PO DAILY nebulizers (Aeroneb Go Nebulizer) As directed updraft treatment Q 4 hours Novolin R FlexPen (insulin regular human) 5 units (0.05 mL) subcut TID 90 days NS paroxetine HCl (Paxil) 10 mg PO DAILY pen needle, diabetic (Unifine Pentips) As directed semaglutide 1 mg (0.75 mL) subcut QWEEK 90 days Do you need a note to return to daycare/school/sports/work: No HPI EST/ rash private are(lobby) HPI Details 68-year-old female presents to the office for a sick visit. Patient has a rash on her vaginal area and perianal area. Very itchy. She has history of eczema before. [facility] Medical History (Updated 11/01/21 @ 18:18 by Mena Paula MD) Carpal tunnel syndrome Left foot drop Chronic kidney disease Asthma Hypercholesterolemia Hypertension Type 2 diabetes mellitus with hyperglycemia Surgical History (Updated 08/01/20 @ 10:43 by Archana Green) H/O lumbosacral spine surgery History of cholecystectomy History of section History of hysterectomy Family History (Updated 08/02/20 @ 13:44 by Mena Paula MD) Father Myocardial infarction Mother Pulmonary embolism Paternal Aunt Breast cancer Social History (Updated 02/26/21 @ 13:48 by Irene Murray [facility]) Housing: House Alcohol intake: never Patient Tobacco Use Status: Never used Tobacco e-Cigarette/Vaping Use: Never Used Second Hand Smoke Exposure: Yes service: No Current occupational status: employed Physical Exam Vital Signs: Last Vital Signs Temp 98.4 F 11/11/23 14:29 Pulse 8 L 11/11/23 14:29 BP 140/70 H 11/11/23 14:29 Pulse Ox 96 11/11/23 14:29 Oxygen Delivery Method Room Air 11/11/23 14:29 BMI result Body Mass Index 37.7 Skin Other: Perianal area: External hemorrhoid seen. No scales or pustules seen. Minimal erythema. Vaginal area: Labia majora has a whitish coating. No rash seen. Above exam was done with a female curator medical museum in the room. Assessment & Plan Assessment & Plan (1) Rash: Code(s): R21 - Rash and other nonspecific skin eruption Plan: Hydrocortisone 2 and 0.5% called in. Rash could be most likely irritant dermatitis. If symptoms do not improve to follow-up here. Coding Level of Care Code Est Pt Level 3 (11039) Diagnoses Rash R21
== END 2023-11-11 16:34 | disposition home or self-care (01) ==
PROVIDERS: Visit Provider Internal Medicine
DX: R21 Rash and other nonspecific skin eruption (principal)
CPT/HCPCS: 99213

== ENCOUNTER 2024-01-07 15:16 | Outpatient (AMB) | payer MEDICARE, SELFPAY ==
--- NOTE | 2024-01-07 15:27 | MHC.PC.OV ---
Vital Signs 01/07/24 15:29 Height 5 ft 3 in Weight 211 lb BMI 37.4 BP 142/82 H Blood Pressure Location Lt brachial Position Sitting Intake Visit Reasons: Transfer Of Care Dr. Paula/ DM Medications Intake Note: Patient here transferring from Dr Paula, follow upDM Spray Mixer Required: No Accompanied by: Self / Same As Patient Allergies oxycodone Allergy (Unknown, Verified 01/08/24 14:52) rash lisinopril Adverse Reaction (Intermediate, Verified 01/08/24 14:52) leg swelling metformin Adverse Reaction (Intermediate, Verified 01/08/24 14:52) diarrhea Medication List - Last Reconciled 01/07/24 by Precious Orourke MD alendronate 70 mg PO QWEEK aspirin 81 mg PO DAILY atorvastatin 40 mg PO BEDTIME 90 days [AUTOPAP 5-20 cm H2O humidified AIR As directed] blood pressure monitor (Blood Pressure Kit) As directed blood sugar diagnostic (FreeStyle Lite Strips) As directed check the BS TID blood sugar diagnostic (OneTouch Verio test strips) As directed check blood sugars 3 times a day blood-glucose meter (OneTouch Verio Flex Start kit) As directed check blood sugars 3 times a day carbidopa-levodopa 25-100 mg 1 tab PO QID [Diabetic shoes As directed] fluticasone furoate-vilanterol 200-25 mcg/dose (Breo Ellipta) 1 ea inhalation DAILY furosemide 40 mg PO DAILY hydrocortisone 2.5% 1 appl topical BID PRN insulin degludec (Tresiba FlexTouch U-100 insulin) 65 units (0.65 mL) subcut DAILY lancets (FreeStyle Lancets) As directed check BS TID levetiracetam 750 mg PO BID 30 days losartan 100 mg PO DAILY nebulizers (Aeroneb Go Nebulizer) As directed updraft treatment Q 4 hours Novolin R FlexPen (insulin regular human) 5 units (0.05 mL) subcut TID 90 days NS omega 3-itk-icx-fish oil 1,200 (144-216) mg (Fish Oil) caps PO pen needle, diabetic (Unifine Pentips) As directed triamcinolone acetonide 0.1% 1 appl topical BID Tobacco use date assessed: 01/07/24 Fall risk assessment: No Falls in past year Last assessed Fall Risk: 01/07/24 Dental Screening Dental Screen Date: 01/07/24 Did you have a dental visit in the last 12 months?: No Did you have a dental problem in the last 6 months where you did not have access to dental care?: No Was dental information given to patient?: Patient declined HPI HPI Comments History of Present Illness Details This is a 68-year-old female with diabetes mellitus type 2 on long-term current use of insulin, hypertension, hypercholesterolemia, seizures and severe obesity class 2 with BMI of 37.4 that comes today for follow-up on her conditions. A1c elevated I will start her on Mounjaro once a week and increase her long-acting and short-acting insulin. Blood pressure normal. Lipid panel will be order and her LDL goal should be less than 70. Has not had a seizure in over a year and this is follow by Neurology. She is obese with a BMI of 37.4 and was referred to weight management for evaluation of weight loss surgery. No chest pain or shortness of breath. [facility] Medical History (Updated 01/07/24 @ 16:21 by Precious Orourke MD) Carpal tunnel syndrome Left foot drop Chronic kidney disease Asthma Hypercholesterolemia Hypertension Type 2 diabetes mellitus with hyperglycemia Surgical History H/O lumbosacral spine surgery History of cholecystectomy History of section History of hysterectomy Family History Father Myocardial infarction Mother Pulmonary embolism Paternal Aunt Breast cancer Social History Housing: House Alcohol intake: never Patient Tobacco Use Status: Never used Tobacco e-Cigarette/Vaping Use: Never Used Second Hand Smoke Exposure: Yes service: No Current occupational status: employed Current occupational exposures/hazards: No Cognitive needs: No Hearing needs: No Vision needs: No Questionnaire PHQ-9 Over the last 2 weeks, how often have you been bothered by any of the following problems? 1. Little interest or pleasure in doing things: not at all 2. Feeling down, depressed, or hopeless: not at all 3. Trouble falling or staying asleep, or sleeping too much: not at all 4. Feeling tired or having little energy: not at all 5. Poor appetite or overeating: not at all 6. Feeling bad about yourself - or that you are a failure or have let yourself or your family down: not at all 7. Trouble concentrating on things, such as reading the newspaper or watching television: not at all 8. Moving or speaking so slowly that other people could have noticed. Or the opposite - being so fidgety or restless that you have been moving around a lot more than usual: not at all 9. Thoughts that you would be better off or of hurting yourself in some way: not at all Total score: 0 Depression Screening Interpretation: Negative Depression Screening Done: Yes 33894 - PHQ-9 Billing: Yes Source: Developed by Drs. Micah Daily, Gloria Kidd, Kumar Arias and colleagues, with an educational jeremy from [employer]. Thrive Questionnaire Date Thrive assessed: 01/07/24 I am a: Patient What is your living situation today?: I have a steady place to live Within the past 12 months, did the food you bought not last and you didn't have the money to get more?: Never true Within the past 12 months, did you worry whether your food would run out before you got money to buy more?: Never true Do you have trouble paying for medicines?: No Do you have trouble getting transportation to medical appointments?: No Do you have trouble paying your heating and electricity bill?: No Do you have trouble taking care of your child, family member or friend?: No Do you have trouble with day-to-day activities such as bathing, preparing meals, shopping, managing finances, etc.?: No Are you currently unemployed and looking for a job?: No Are you interested in more education?: No Please select the resources that you would like help with: None Currently or been in a relationship where the following occur: no concerns reported THRIVE Score: 0 AUDIT C Alcohol Use Questionnaire (AUDIT-C) 1. How often do you have a drink containing alcohol?: Never Total Score: 0 ADARSH-7 AMB Questionnaire ADARSH-7 Date ADARSH - 7 assessed: 01/07/24 Feeling nervous, anxious, or on edge: 0 = Not at all Not being able to stop or control worryin = Not at all Worrying too much about different things: 0 = Not at all Trouble relaxin = Not at all Being so restless that it is hard to sit still: 0 = Not at all Becoming easily annoyed or irritable: 0 = Not at all Feeling afraid as if something awful might happen: 0 = Not at all Total ADARSH-7 score (0-4 normal; 5-9 mild; 10-14 moderate; 15-21 severe): 0 Source: Developed by Drs. Micah Daily, Gloria Kidd, Kumar Arias and colleagues, with an educational jeremy from [employer]. ADARSH-7 Assessment Billing ADARSH-7 Assessment Tool: ADARSH-7 Assessment 52357 Review of Systems Const All systems reviewed & are unremarkable except as noted in HPI and below Eyes Reports no additional complaints, Denies change in vision and Denies other visual disturbances Card Denies chest pain at rest, Denies chest pain with activity, Denies edema, Denies irregular heart rhythm, Denies claudication, Denies dyspnea, Denies dyspnea on exertion, Denies orthopnea, Denies paroxysmal nocturnal dyspnea and Denies slow heart rate Resp Denies cough, Denies dyspnea and Denies dyspnea on exertion Neuro Denies confusion Psych Denies confusion Physical exam (Primary Care) Vital Signs: Last Vital Signs BP 142/82 H 01/07/24 15:29 BMI result Body Mass Index 37.4 Tobacco/Smoking Status: Tobacco use Status Tobacco use date assessed 01/07/24 01/07/24 15:48 Patient Tobacco Use Status Never used Tobacco 01/07/24 15:29 e-Cigarette/Vaping Use Never Used 01/07/24 15:29 PHQ-9: PHQ-9 Score PHQ-9: Total score 0 01/07/24 16:07 Depression Screening Interpretation: Negative Thrive Assessment: Date of Thrive Assessment Date Thrive assessed 01/07/24 01/07/24 15:29 Currently or been in a relationship where the following occur: no concerns reported Const General: No confusion Orientation/consciousness: patient oriented x3 and No confusion Resp Effort & Inspection: normal respiratory effort Auscultation: clear to auscultation bilaterally Cardio Jugular venous distension: no JVD Rate: regular rate Rhythm: regular rhythm Heart sounds: S1 normal heart sound present and S2 normal heart sound present Neuro General: patient oriented x3, no focal motor deficits and No confusion Extrem General: Yes full ROM Results AMB Hemoglobin A1c AMB Hemoglobin A1c 13.5 % Last Edit by REINALDO Patel on 01/07/24 16:07 Results Reviewed Results Reviewed: Laboratory Last Values Hgb A1c (Clinic) 13.5 % (4.0-6.0) H 01/07/24 15:50 Assessment and Plan Assessment & Plan (1) Type 2 diabetes mellitus with hyperglycemia: Code(s): E11.65 - Type 2 diabetes mellitus with hyperglycemia Qualifiers: Diabetes mellitus intermodal dispatcher insulin use: without intermodal dispatcher use Qualified Code(s): E11.65 - Type 2 diabetes mellitus with hyperglycemia Plan: Increase Tresiba and short-acting insulin. Start Mpunjarol. A1c goal is equal or less than 7%. (2) Hypertension: Code(s): I10 - Essential (primary) hypertension Qualifiers: Hypertension type: essential hypertension Qualified Code(s): I10 - Essential (primary) hypertension Plan: Continue losartan. Blood pressure goal is equal or less than 130/80. (3) Hypercholesterolemia: Code(s): E78.00 - Pure hypercholesterolemia, unspecified Plan: Continue statins. LDL goal is less than 70. (4) Seizure: Comment: January 2021, Seizures Code(s): R56.9 - Unspecified convulsions Plan: Continue Keppra. Follow-up with Neurology. (5) Class 2 obesity with alveolar hypoventilation and body mass index (BMI) of 37.0 to 37.9 in adult: Code(s): E66.2 - Morbid (severe) obesity with alveolar hypoventilation; Z68.37 - Body mass index [BMI] 37.0-37.9, adult Plan: Referred to weight management. BMI goal is less than 30. Orders: Orders AMB Hemoglobin A1c 01/07/24 E11.65 - Type 2 diabetes mellitus with hyperglycemia Microalbumin, Random (w Creat) 01/07/24 E11.9 - Type 2 diabetes mellitus without complications Vitamin D 25-OH Total 01/07/24 E55.9 - Vitamin D deficiency, unspecified Comprehensive [place]. Panel Fast 01/07/24 E11.65 - Type 2 diabetes mellitus with hyperglycemia XR DEXA axial skeleton 01/07/24 N95.9 - Unspecified menopausal and perimenopausal disorder Lipid Panel 01/07/24 E78.5 - Hyperlipidemia, unspecified Vitamin B12 and Folate 01/07/24 E53.8 - Deficiency of other specified B group vitamins Referrals Medical Weight Management Referral E66.2 - Morbid (severe) obesity with alveolar hypoventilation, Z68.37 - Body mass index [BMI] 37.0-37.9, adult Medications: New tirzepatide (Mounjaro) 2.5 mg (0.5 mL) subcut QWEEK 2 mL 0RF 4 weeks pen needle, diabetic (1st Tier Unifine Pentips) Use 1 pen needle four times a day 100 ea 3RF Changed From insulin degludec (Tresiba FlexTouch U-100 insulin) 65 units (0.65 mL) subcut DAILY 15 mL 11RF E11.65 - Type 2 diabetes mellitus with hyperglycemia To insulin degludec (Tresiba FlexTouch U-100 insulin) 70 units (0.7 mL) subcut DAILY 15 mL 11RF E11.65 - Type 2 diabetes mellitus with hyperglycemia From Novolin R FlexPen (insulin regular human) 5 units (0.05 mL) subcut TID 90 days 15 mL 3RF NS To Novolin R FlexPen (insulin regular human) 15 units (0.15 mL) subcut TID 40.5 mL 3RF 90 days NS Coding Level of Care Code Est Pt Level 4 (12813) Diagnoses Type 2 diabetes mellitus with hyperglycemia, without long-term current use of insulin E11.65 Diabetes mellitus intermodal dispatcher insulin use: without intermodal dispatcher use Essential hypertension I10 Hypertension type: essential hypertension Hypercholesterolemia E78.00 Seizure R56.9 Class 2 obesity with alveolar hypoventilation and body mass index (BMI) of 37.0 to 37.9 in adult E66.2; Z68.37 Additional Codes ADARSH-7 Assessment Billing - ADARSH-7 Assessment Tool: ADARSH-7 Assessment 77238 ([id number]) Time Spent (min) 25
[2024-01-07 15:29] VITALS: BP 142/82; BMI 37.4
== END 2024-01-07 16:31 | disposition home or self-care (01) ==
PROVIDERS: Visit Provider Internal Medicine
DX: E11.65 Type 2 diabetes mellitus with hyperglycemia (principal)
CPT/HCPCS: 83036; 99214

== ENCOUNTER 2024-01-08 14:35 | Outpatient (AMB) | payer MEDICARE, SELFPAY ==
[2024-01-08 14:47] VITALS: BP 122/63; PULSE 83; O2SAT 93; BMI 37.9
--- NOTE | 2024-01-08 14:47 | A.OFFVIS_ITS ---
Intake Vital Signs 01/08/24 14:47 Height 5 ft 3 in Weight 213 lb 13.574 oz BMI 37.9 BP 122/63 Blood Pressure Location Lt brachial Position Sitting Pulse 83 Pulse Source Doppler Pulse Oximetry (%) 93 Oxygen Delivery Method Room Air Intake Visit Reasons: Obstructive sleep apnea Allergies oxycodone Allergy (Unknown, Verified 01/08/24 14:52) rash lisinopril Adverse Reaction (Intermediate, Verified 01/08/24 14:52) leg swelling metformin Adverse Reaction (Intermediate, Verified 01/08/24 14:52) diarrhea HPI Obstructive sleep apnea HPI Details 67-year-old lady, lifetime nonsmoker, fo llowed for underlying mild to moderate persistent asthma and moderate ELAINE.? She continues to use Breo and albuterol MDI/nebs with good control of her underlying symptoms.? She denies any recent exacerbations of her underlying asthma. Patient has not been using her CPAP machine. Patient does complain of significant environmental allergies. [facility] Medical History Carpal tunnel syndrome Left foot drop Chronic kidney disease Asthma Hypercholesterolemia Hypertension Type 2 diabetes mellitus with hyperglycemia Surgical History H/O lumbosacral spine surgery History of cholecystectomy History of section History of hysterectomy Family History Father Myocardial infarction Mother Pulmonary embolism Paternal Aunt Breast cancer Social History Housing: House Alcohol intake: never Patient Tobacco Use Status: Never used Tobacco e-Cigarette/Vaping Use: Never Used Second Hand Smoke Exposure: Yes service: No Current occupational status: employed Current occupational exposures/hazards: No Cognitive needs: No Hearing needs: No Vision needs: No Review of Systems Const Denies daytime sleepiness, Denies excessive sweating, Denies fatigue, Denies fever(s), Denies lethargy, Denies malaise, Denies night sweats, Denies snoring and Denies weight loss Eyes Denies blurry vision and Reports itchy eyes ENT Denies nasal congestion, Denies post nasal drip, Denies sinus pain, Denies sinus pressure and Denies other ( Thrush) Card Denies chest pain, Denies pedal edema, Denies dyspnea, Denies orthopnea and Denies paroxysmal nocturnal dyspnea Resp Denies cough, Denies hemoptysis, Denies excessive phlegm production, Denies dyspnea, Denies snoring and Denies wheezing GI Denies abdominal pain and Denies heartburn Musc Denies myalgias, Denies arthralgias and Denies joint swelling Skin/Breast Denies rash Neuro Denies memory loss and Denies seizure-like activity Psych Denies abnormal sleep pattern, Denies anxiety and Denies memory loss Endo Denies excessive sweating, Denies fatigue and Denies heat intolerance Seun/Lymph Denies easy bruising Aller/Immun Reports itchy eyes, Reports seasonal rhinorrhea and Denies wheezing Physical Exam Vital Signs: Last Vital Signs Pulse 83 01/08/24 14:47 BP 122/63 01/08/24 14:47 Pulse Ox 93 01/08/24 14:47 Oxygen Delivery Method Room Air 01/08/24 14:47 BMI result Body Mass Index 37.9 Const General: no acute distress and alert Nutritional Appearance: obese Orientation/consciousness: Other orientation findings ( oriented) HEENT Head: Yes atraumatic Eyes General: appearance normal, both eyes and all related structures Sclerae: sclerae normal EOM: EOMs intact bilaterally Neck Neck: Yes supple Lymphatic: no lymphadenopathy noted Resp Effort & Inspection: normal respiratory effort and no use of accessory muscles Auscultation: clear to auscultation bilaterally Cardio Rate: regular rate Rhythm: regular rhythm Heart sounds: no gallops, no murmurs and no rubs Skin General skin exam: other ( warm) Extrem General: No clubbing, No cyanosis and No edema Assessment & Plan Assessment & Plan (1) Asthma: Code(s): J45.909 - Unspecified asthma, uncomplicated Qualifiers: Asthma severity: mild Asthma persistence: intermittent Asthma complication type: uncomplicated Qualified Code(s): J45.20 - Mild intermittent asthma, uncomplicated Plan: Well controlled on Breo and albuterol MDI. Continue current regimen. (2) Environmental allergies: Code(s): Z91.09 - Other allergy status, other than to drugs and biological substances Plan: With seasonally worsening symptoms. Will add Flonase and Zyrtec. Medications: New fluticasone propionate 50 mcg/actuation (Flonase Allergy Relief) administer into each nostril 1 spray intranasal BID 16 grams 3RF 30 days cetirizine 10 mg PO DAILY 30 tabs 3RF 30 days Coding Level of Care Code Est Pt Level 4 (65271) Diagnoses Mild intermittent asthma without complication J45.20 Asthma severity: mild Asthma persistence: intermittent Asthma complication type: uncomplicated Environmental allergies Z91.09
== END 2024-01-08 15:11 | disposition home or self-care (01) ==
PROVIDERS: PCP Family Medicine; Visit Provider Internal Medicine Pulmonary Disease
DX: J45.20 Mild intermittent asthma, uncomplicated (principal); Z91.09 Other allergy status, other than to drugs and biological substances
CPT/HCPCS: 99214

== ENCOUNTER → 2024-01-08 14:35 | Outpatient (BNVA) | payer MEDICARE, SELFPAY | PROVIDERS: PCP Family Medicine; Visit Provider Internal Medicine Pulmonary Disease | DX: J45.20 Mild intermittent asthma, uncomplicated (principal); Z91.09 Other allergy status, other than to drugs and biological substances | CPT/HCPCS: 99212 ==

== ENCOUNTER 2024-01-12 14:31 | Outpatient (REF) | payer MEDICARE, SELFPAY ==
--- NOTE | ~2024-01-12 | MM_ITS ---
EXAMINATION: MM DIAGNOSTIC DIGITAL BREAST TOMOSYNTHESIS, BILATERAL CLINICAL INFORMATION: Patient presents for recommended short interval follow-up of left breast nodularity noted on prior studies dating back to 2021. COMPARISON: Mammography: This study is compared with prior exams dating back to 2019. TECHNIQUE: Digital breast tomosynthesis is performed in both the craniocaudal and mediolateral oblique views along with computer-aided detection (CAD). Synthesized 2D images are generated from the tomosynthesis. FINDINGS: There are scattered areas of fibroglandular density (ACR BI-RADS breast composition Category b). There are no significant masses, abnormal calcifications, or other abnormalities. There are no abnormalities in either breast. Some of the previously perceived areas of nodularity are related to normal intramammary lymph nodes and some small vessel disease creating a double density effect were the make turns in the breast. MM/MM tomosynthesis diagnostic BI IMPRESSION: No mammographic signs of malignancy. Bilateral annual screening mammography is recommended. ASSESSMENT: BI-RADS BI-RADS 1 - Negative RECOMMENDATION: 1 year F/U Results were provided to the patient at time of visit by the technologist. This patient's information was entered into a reminder system with a target due date for their next mammogram.
== END 2024-01-12 14:32 | disposition home or self-care (01) ==
LOC: HO.MAMMO 14:31
PROVIDERS: PCP Internal Medicine; Visit Provider Internal Medicine
DX: R92.8 Other abnormal and inconclusive findings on diagnostic imaging of breast (principal)
CPT/HCPCS: 77062; 77066

== ENCOUNTER → 2024-01-12 15:00 | Outpatient (BNV) | payer MEDICARE, SELFPAY | PROVIDERS: PCP Internal Medicine; Visit Provider Radiology Diagnostic Radiology | DX: R92.8 Other abnormal and inconclusive findings on diagnostic imaging of breast (principal) | CPT/HCPCS: 77066; G0279 ==

== ENCOUNTER → 2024-01-13 13:37 | Outpatient (BNVA) | payer MEDICARE, SELFPAY | PROVIDERS: PCP Internal Medicine; Visit Provider Physician Assistant Surgical ==

== ENCOUNTER 2024-01-28 14:08 | Outpatient (REF) | payer MEDICARE, SELFPAY ==
--- NOTE | ~2024-01-28 | MM_ITS ---
EXAMINATION: BONE DENSITOMETRY CLINICAL INDICATION: Unspecified menopausal and perimenopausal disorder. COMPARISON: Baseline BD dated 03/19/2021. TECHNIQUE: Using a [employer] DXA System (software version: 13.1) manufactured by [employer], dual-energy x-ray absorptiometry was performed of the lumbar spine and left hip. The images are of good technical quality. Summary results are attached. FINDINGS: AP SPINE L1-L4: Current: BMD 1.339 g/cm2, Z-score 1.9, T-score 1.3, normal, 7.6% increase from baseline (<5% change is not significant). Baseline: BMD 1.245 g/cm2. LEFT FEMUR, NECK: Current: BMD 0.861 g/cm2, Z-score -0.3, T-score -1.3, osteopenia. Baseline: BMD 0.800 g/cm2. LEFT FEMUR, TOTAL: Current: BMD 1.050 g/cm2, Z-score 0.1, T-score 0.3, normal, 2.3% increase from baseline (<5% change is not significant). Baseline: BMD 1.026 g/cm2. IDENTIFIED RISK FACTORS: History of adult fracture. Rheumatoid arthritis. Renal disease. Height loss. Secondary osteoporosis (early menopause, type 1 diabetes). Hysterectomy. HISTORY OF FRACTURE: Spine. MEDICATIONS: Multivitamin. MM/XR DEXA axial skeleton IMPRESSION: 1. DIAGNOSIS: Osteopenia based on the lowest T-score value of -1.3 in the femoral neck applying World Health Organization criteria. 2. 10-YEAR FRACTURE RISK PREDICTION, FRAX: Major osteoporotic fracture (clinical spine, forearm, hip or shoulder) 17.2%. Hip fracture 1.9%. 3. Treatment Recommendations: NOF guidelines recommend consideration for treatment in postmenopausal women and men age 50 and older presenting with the following: -A hip or vertebral (clinical or morphometric) fracture. -T-score less than or equal to -2.5 at the femoral neck or spine after appropriate evaluation to exclude secondary causes. -Low bone mass at the hip or spine and a 10-year fracture probability by FRAX of greater than or equal to 3% for hip fracture or greater than or equal to 20% for major osteoporotic fracture based on the [place] adapted WHO algorithm. 4. Other Recommendations: All treatment decisions require clinical judgment and consideration of individual patient factors, including patient preferences, comorbidities, previous drug use, risk factors not captured in the FRAX model (e.g. frailty, falls, vitamin D deficiency, increased bone turnover, interval significant decline in bone density) and possible under or overestimation of fracture risk by FRAX. Additional medical evaluation for secondary cause of low bone mineral density may be appropriate. FUTURE SCAN RECOMMENDATION: People with diagnosed cases of osteoporosis or at high risk for fracture should have regular bone mineral density tests. For patients eligible for Medicare, routine testing is allowed once every 2 years. The testing frequency can be increased to one year for patients who have rapidly progressing disease, those who are receiving or discontinuing medical therapy to restore bone mass, or have additional risk factors.
== END 2024-01-28 14:09 | disposition home or self-care (01) ==
LOC: HO.MAMMO 14:08
PROVIDERS: PCP Internal Medicine; Visit Provider Internal Medicine
DX: Z13.820 Encounter for screening for osteoporosis (principal); Z78.0 Asymptomatic menopausal state
CPT/HCPCS: 77080

== ENCOUNTER 2024-01-29 | Outpatient (REF) | payer MEDICARE, SELFPAY ==
[2024-01-29 15:27] LABS: Glucose Random 272 mg/dL (60-115)
[2024-01-29 15:44] LABS: Estimated Average Glucose 280 mg/dL; Hemoglobin A1c % 11.4 % (<6.0)
== END 2024-01-29 00:01 | disposition home or self-care (01) ==
LOC: HO.LAB
PROVIDERS: PCP Internal Medicine; Visit Provider Physician Assistant Surgical
DX: E11.65 Type 2 diabetes mellitus with hyperglycemia (principal)
CPT/HCPCS: 36415; 82947; 83036; 99453

== ENCOUNTER 2024-01-29 13:27 | Outpatient (AMB) | payer MEDICARE, SELFPAY ==
--- OUTSIDE RECORDS SUMMARY | 2024-01-29 13:28 | XMS_ITS | Patient Health Record ---
Author Organization [facility] Address [address] [place] [address] Care Team Providers Care Exercise Rider Name Role Phone Stephanie Neri Unavailable [phone] ALLERGIES Allergen (clinical drug ingredient) Drug/Non Drug [...] Active IMMUNIZATIONS Vaccine Route Administration Date Status Commpina nts COVID-19 Pfizer BioNTech Vaccine Unknown 01/18/2022 [...] toe of left foot (M20.42) Active confirmed [id number] Problem Type 2 diabetes mellitus with polyneuropathy (E11.42) Active confirmed [id number] PLAN OF TREATMENT No Information Insurance Providers Payer Name Payer Address Payer Phone Subscriber Number Group Number Insured Name Patient Relationship to Insured Coverage Start Date Coverage End Date Aetna [address] [place] [phone] [id number] Daya Bobo Self - patient is the insured MEDICAL (GENERAL) HISTORY Medical History History ICD Code type II diabetes High blood pressure Kidney disease Epilepsy Surgical History Surgery Date(Month/Year) spine surgery left leg surgery upper thigh - Sciatica gall bladder Hospitalization History Reason Date(Month/Year) [facility] 01/23/21
[2024-01-29 15:25] VITALS: BP 152/82; PULSE 78; O2SAT 95; BMI 37.0
--- NOTE | 2024-01-29 15:25 | HO.OFFWMMET ---
VS Expanded 01/29/24 15:25 BP 152/82 H Blood Pressure Location Rt brachial Blood Pressure Position Sitting Pulse 78 Pulse Source Pulse Oximeter Pulse Oximetry 95 Oxygen Delivery Method Room Air Height 5 ft 3 in Weight 208 lb 12.8 oz BMI 37.0 Body Fat % 37.7 Body Fat Mass 78.8 Fat Free Mass 130.0 Visceral Fat Rating 12.0 Body Water % 44.0 Body Water Mass 92.0 Muscle Mass/Score 123.4 Basal Metabolic Rate/Score 1,762 Intake Visit Reasons: metabolic group session Reclamation Worker Required: No Allergies oxycodone Allergy (Unknown, Verified 01/08/24 14:52) rash lisinopril Adverse Reaction (Intermediate, Verified 01/08/24 14:52) leg swelling metformin Adverse Reaction (Intermediate, Verified 01/08/24 14:52) diarrhea Medication List - Last Reconciled 01/29/24 by MAGALI Nogueira alendronate 70 mg PO QWEEK aspirin 81 mg PO DAILY atorvastatin 40 mg PO BEDTIME 90 days [AUTOPAP 5-20 cm H2O humidified AIR As directed] blood pressure monitor (Blood Pressure Kit) As directed blood sugar diagnostic (FreeStyle Lite Strips) As directed check the BS TID blood sugar diagnostic (OneTouch Verio test strips) As directed check blood sugars 3 times a day blood-glucose meter (OneTouch Verio Flex Start kit) As directed check blood sugars 3 times a day carbidopa-levodopa 25-100 mg 1 tab PO QID cetirizine 10 mg PO DAILY 30 days [Diabetic shoes As directed] fluticasone furoate-vilanterol 200-25 mcg/dose (Breo Ellipta) 1 ea inhalation DAILY fluticasone propionate 50 mcg/actuation (Flonase Allergy Relief) 1 spray intranasal BID 30 days furosemide 40 mg PO DAILY hydrocortisone 2.5% 1 appl topical BID PRN insulin degludec (Tresiba FlexTouch U-100 insulin) 70 units (0.7 mL) subcut DAILY lancets (FreeStyle Lancets) As directed check BS TID levetiracetam 750 mg PO BID 30 days losartan 100 mg PO DAILY nebulizers (Aeroneb Go Nebulizer) As directed updraft treatment Q 4 hours Novolin R FlexPen (insulin regular human) 15 units (0.15 mL) subcut TID 90 days NS omega 0-bzb-uxi-fish oil 1,200 (144-216) mg (Fish Oil) caps PO pen needle, diabetic (Unifine Pentips) As directed pen needle, diabetic (1st Tier Unifine Pentips) Use 1 pen needle four times a day tirzepatide (Mounjaro) 2.5 mg (0.5 mL) subcut QWEEK 4 weeks triamcinolone acetonide 0.1% 1 appl topical BID HPI Comments Details: Patient is a pleasant 68-year-old female who presents to the office for metabolic clinic. She is interested in weight loss as well as improving underlying associated comorbidities including diabetes mellitus, hypertension, hyperlipidemia. Upon further discussion, she states that she would like to transition to the Surgical weight loss program and we will make referral accordingly. Weight today is noted to be 208.8 lb with a BMI of 37. Hemoglobin A1c is noted at 11.4 with a random glucose of 272. [facility] Medical History Carpal tunnel syndrome Left foot drop Chronic kidney disease Asthma Hypercholesterolemia Hypertension Type 2 diabetes mellitus with hyperglycemia Surgical History H/O lumbosacral spine surgery History of cholecystectomy History of section History of hysterectomy Family History Father Myocardial infarction Mother Pulmonary embolism Paternal Aunt Breast cancer Social History Housing: House Alcohol intake: never Patient Tobacco Use Status: Never used Tobacco e-Cigarette/Vaping Use: Never Used Second Hand Smoke Exposure: Yes service: No Current occupational status: employed Current occupational exposures/hazards: No Cognitive needs: No Hearing needs: No Vision needs: No Physical Exam Vital Signs: Last Vital Signs Pulse 78 01/29/24 15:25 BP 152/82 H 01/29/24 15:25 Pulse Ox 95 01/29/24 15:25 Oxygen Delivery Method Room Air 01/29/24 15:25 BMI result Body Mass Index 37.0 Assessment & Plan Assessment & Plan (1) Obesity (BMI 30-39.9): Code(s): E66.9 - Obesity, unspecified Category: Medical Plan: This is a?68 yo female who presented to the office to participate in the metabolic clinic. She states that she would like referral to our Surgical weight loss program and she will be referred to Dr. Rogel for an initial new patient appointment. ? Adequate sleep of 7-8 hours per night discussed, awakening at 7 am and going to bed at 10 pm ? Purchase body composition analyzer scale (Rensukhdeepo recommended) and check weight weekly. The best time to do this is first thing in the morning after going to the bathroom. 1. Nutritional counseling: Be sure to careful read the number of scoops per shake Start with 2 Celebrate Rebuild shakes ([facility] [email or web address], [employer], [employer]), (1.5 scoops in 12 oz unsweetened almond milk each) First shake at 8am-10am, Second shake at 11am-1pm 2 Celebrate protein bars (eMithilaHaatebrate bars at [facility] [email or web address], [employer], [employer]) First bar at 1pm-3pm. Dinner at 5pm (7 forks of protein and 7 forks of salad/vegetables). Meal to include lean meat (beef, fish, pork, turkey, chicken), cooked vegetables or a salad with olive oil and/or fruits (berries, pears, apples, kiwi). Avoid salt, breads, potatoes, rice, pasta, desserts. Second bar at 7pm-9pm. Try to drink 64 oz of water daily and avoid soda and juices. ?2. Each shake would be drunk slowly, like coffee in a period of 2 hours. ?3. Cut each bar in 4 pieces and eat each piece in 30 min ?to make each bar last 2 hours. ?4. I emphasized the importance of measuring accurately the food portion and measure it carefully when serving the food on the plate ?5. The meal portions include 7 full-size forks of meat and 7 full-size forks of salad. You always eat the meat portion but you can replace up to half of the forks of salad/vegetables with rice, potatoes or pasta, or a fruit ?if you like. The less you do it the better weight loss will be. ?6. One full-size fork is what can be scooped on the fork without falling aside and not what can be bit with the fork. Use regular forks like those you find in a typical restaurant. ?7.? Please send me weight measurements as soon as possible and then once a week. Always include your diet and exercise plan. Alternatively come weekly at the office for weight checks and send me the measurements. ?8. Exercise counseling: Begin by watching a stretching for beginners video. Start slowly and begin to stretch your muscles. You should do this before and after each exercise session to prevent injury. Please consider joining [employer] gym near your home. Ask the caravan park and camping ground manager or one of the trainers how to use the machines if you are unfamiliar with them. Start elliptical with a resistance of 2. Increase resistance by 1 every 3 min to your most comfortable resistance with a max resistance of 8. Reduce the resistance by 1 every 3 minutes back down to 2 and repeat cycles for 300 calories. Alternatively, start treadmill with a speed of 3.0 and incline of 0, increasing incline by 1 every 3 minutes to the highest comfortable level (max 6 for now) then decrease in the same fashion. Repeat process to a goal of 300 calories. Goal of 2000 calories burned or more weekly. You may also consider use of the stationary bike. The easiest would be to chose the fat-burn or interval training program on the machine and do this until you reach the 300 calorie goal. Alternatively, you can manually adjust the resistance in a similar fashion as mentioned above, (resistance of 2-8 with a goal speed of 12 mph). Tracking calories is essential. 9. Alternatively start walking outside daily, tracking calories with a goal of 300 calories per day, daily. You can download the buddy [employer] which can track your time, distance and calories while walking outside. You press start in the buddy when you start and then stop when you are finished. 10. You stated that you have a rowing machine at home. You can certainly use this and if it has the capacity to track your calories burned, that is great. Start rowing with a resistance (damper) level of 1.0. Increase resistance by 1 every 3 min to a max resistance of 3.0, stay 3 min at resistance level 3.0 and then return to resistance 1.0 and repeat cycles until your work-out calorie goal is met. 11.?It is important to communicate weekly your weight and if you are having any problems. 12. Janeen will call you to set up an appointment with Dr Rogel 13. Please follow the diet plan exactly, without any change. If you do not like something about the plan or you feel hungry, you need to communicate with me so I can help you revise the plan. You should not change the plan yourself. Text me at [phone] 14. Goal is to lose at least 10-12 pounds in the first month Patient is morbidly obese and is not considered stable at this time.?I spent a total of 70 minutes reviewing/updating records, examining the patient and counseling the patient on weight management as detailed above. Orders: Orders Hemoglobin A1c Today E11.65 - Type 2 diabetes mellitus with hyperglycemia Glucose Random Today E11.65 - Type 2 diabetes mellitus with hyperglycemia
== END 2024-01-29 18:28 | disposition home or self-care (01) ==
LOC: HO.META 13:27
PROVIDERS: PCP Internal Medicine; Visit Provider Physician Assistant Surgical
DX: E66.9 Obesity, unspecified (principal)

== ENCOUNTER 2024-03-25 09:17 | Outpatient (AMB) | payer MEDICARE, SELFPAY ==
--- OUTSIDE RECORDS SUMMARY | 2024-03-25 09:25 | XMS_ITS | Patient Health Record ---
Author Organization [facility] Address [address] [place] [address] Care Team Providers Care Cardiology Manager Name Role Phone Stephanie Neri Unavailable [phone] ALLERGIES Allergen (clinical drug ingredient) Drug/Non Drug [...] toe of left foot (M20.42) Active confirmed [id number] Problem Type 2 diabetes mellitus with polyneuropathy (E11.42) Active confirmed [id number] PLAN OF TREATMENT No Information Insurance Providers Payer Name Payer Address Payer Phone Subscriber Number Group Number Insured Name Patient Relationship to Insured Coverage Start Date Coverage End Date A[employer] [address] [id number] [phone] [id number] Daya Bobo Self - patient is the insured MEDICAL (GENERAL) HISTORY Medical History History ICD Code type II diabetes High blood pressure Kidney disease Epilepsy Surgical History Surgery Date(Month/Year) spine surgery left leg surgery upper thigh - Sciatica gall bladder Hospitalization History Reason Date(Month/Year) [facility] seizure 01/[facility]/21
--- NOTE | 2024-03-25 11:33 | A.OFFVIS_ITS ---
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 Allergies oxycodone Allergy (Unknown, Verified 03/25/24 11:33) rash lisinopril Adverse Reaction (Intermediate, Verified 03/25/24 11:33) leg swelling metformin Adverse Reaction (Intermediate, Verified 03/25/24 11:33) diarrhea Medication List - Last Reconciled 03/25/24 by Noble Rogel MD alendronate 70 mg PO QWEEK amlodipine 5 mg PO DAILY aspirin 81 mg PO DAILY atorvastatin 40 mg PO BEDTIME 90 days [AUTOPAP 5-20 cm H2O humidified AIR As directed] blood pressure monitor (Blood Pressure Kit) As directed blood sugar diagnostic (FreeStyle Lite Strips) As directed check the BS TID blood sugar diagnostic (OneTouch Verio test strips) As directed check blood sugars 3 times a day blood sugar diagnostic (FreeStyle Test strips) Use 1 test strip three times a day blood-glucose meter (OneTouch Verio Flex Start kit) As directed check blood sugars 3 times a day blood-glucose meter (FreeStyle Lite Meter kit) As directed calcium carbonate-vitamin D3 500 mg-10 mcg (400 unit) (Oyster Shell Calcium- Vitamin D3) 1 tab PO BID 90 days carbidopa-levodopa 25-100 mg 1 tab PO QID cetirizine 10 mg PO DAILY 30 days [Diabetic shoes As directed] fluticasone furoate-vilanterol 200-25 mcg/dose (Breo Ellipta) 1 ea inhalation DAILY fluticasone propionate 50 mcg/actuation (Flonase Allergy Relief) 1 spray intranasal BID 30 days lancets (FreeStyle Lancets) As directed check BS TID lancets (FreeStyle Lancets) Use 1 lancet three times a day losartan 100 mg PO DAILY nebulizers (Aeroneb Go Nebulizer) As directed updraft treatment Q 4 hours Novolin R FlexPen (insulin regular human) 15 units (0.15 mL) subcut TID 90 days NS omega [id number]-[id number] oil 1,200 (144-216) mg (Fish Oil) caps PO pen needle, diabetic (Unifine Pentips) As directed pen needle, diabetic (1st Tier Unifine Pentips) Use 1 pen needle four times a day tirzepatide (Mounjaro) 2.5 mg (0.5 mL) subcut QWEEK 4 weeks triamcinolone acetonide 0.1% 1 appl topical BID HPI HPI 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 37.3: Details: Start time: 11.25am, End time: 12.10pm ?I spent 40 minutes speaking with the patient on the phone plus an additional 5 minutes reviewing and updating records for a total of 45 minutes HPI Comments Details: Previous weight loss efforts: swimming, walking Wakes up: 7am, Sleeps: 10pm Breakfast: often skips Lunch: 11-12pm (Slimfast, Celebrate Rebuild) Dinner: 5.30pm (chicken, turkey) Snacks: 4pm (peanut butter with crackers) Exercise: has a rowing machine and a stationary bike Fluids: coffee (1 cup/day with creamer), tea: (swet a low, often), soda: diet, juice: none, ETOH: none PFSH Medical History (Updated 03/25/24 @ 11:42 by Noble Rogel MD) Carpal tunnel syndrome Left foot drop Chronic kidney disease Asthma Hypercholesterolemia Hypertension Type 2 diabetes mellitus with hyperglycemia Surgical History H/O lumbosacral spine surgery History of cholecystectomy History of section History of hysterectomy Family History Father Myocardial infarction Mother Pulmonary embolism Paternal Aunt Breast cancer Social History Housing: House Alcohol intake: never Patient Tobacco Use Status: Never used Tobacco e-Cigarette/Vaping Use: Never Used Second Hand Smoke Exposure: Yes service: No Current occupational status: employed Current occupational exposures/hazards: No Cognitive needs: No Hearing needs: No Vision needs: No Telehealth Telehealth Telehealth Platform: Telephone Location of provider rendering services: practice address Location of patient: address on file Patient Identification confirmed using: Name, : Yes Telehealth method: voice only Patient verbally consented to treatment: Yes Patient verbally consented to billing insurance company: Yes Patient informed of any privacy concerns related to visit: Yes Minutes spent on Phone/Video with Pt.: 45 Assessment & Plan Assessment & Plan (1) Obesity (BMI 30-39.9): Code(s): E66.9 - Obesity, unspecified Category: Medical Plan: 1.? Plan for lap sleeve gastrectomy. If diaphragmatic or ventral hernias are present at time of surgery, these will be repaired laparoscopically as well. Risks and complications include possible conversion to an open procedure, anastomotic leak, bleeding requiring transfusion, small bowel obstruction, , DVT and pulmonary embolism, cardiac, or pulmonary complications, as care home complications such as anastomotic ulcer, insufficient weight loss and vitamin deficiencies. I emphasized the importance of close follow-up, adherence to instructions and good communication. 2. Nutritional counseling. Start with 2 CELEBRATE REBUILD protein (buy at [facility] [employer]) shakes (ONE scoop EACH in 8oz low fat unsweetened almond milk each) at 8am-10am and 11am-1pm, 1 protein bar (CELEBRATE protein bars, [facility]) at 2pm-4pm, dinner at 5pm (8 forks of protein and 8 forks of salad/vegetables) AND one more protein bar after dinner at 7pm-9pm. So you do 2 protein shakes, 2 protein bars and one meal per day. Meal to include lean meat (beef, fish, pork, turkey, chicken), or fijian yogurt, or egg whites, or beans with a salad with olive oil and fruits (berries, pears, apples, kiwi). Avoid salt, breads, potatoes, rice, pasta, desserts. 3. Each shake would be drunk slowly, like coffee in a period of 2 hours. 4. Cut each bar in 4 pieces and eat each piece in 30min ?to make each bar last 2 hours. 5. I emphasized the importance of measuring accurately the food portion and measure it when serving the food in plate 6. The meal portions include 8 full-size forks of meat and 8 full-size forks of salad. You always eat the meat portion but you can replace up to 4 forks for salad/vegetables with rice, potatoes or pasta, or a fruit ?if you like. The less you do it the better weight loss will be. 7. One full-size fork is what it can be scooped on the fork without falling aside and not what can be bit with the fork. Use regular forks like those you find in a typical restaurant. 8.? Please send me weight measurements as soon as possible and then once a week. Always include your diet and exercise plan. 9. Start stationary bike at a resistance level of 0.0 Increase level by 1.0 every 3 min to a max level of 6.0. Stay at this level for 3 min and then return to level 0.0 and repeat same steps until 300 calories are burned. Goal is to burn 2000 calories per week on exercise 10. Goal is to lose at least 1.5-2lbs per week 11. Goal to lose 10% of your weight before surgery, which is about 21lbs. Ultimate weight goal: 189lbs before surgery 12. Please follow the diet plan exactly without any change. If you don't like something about the plan or you feel hungry you need to communicate with me so I can help you revise the plan. You should not change the plan yourself. 13. To be scheduled for EGD to assess the anatomy of the stomach. The possibility of biopsies was discussed. Patient needs to avoid use of NSAIDs and aspirin for 1 week prior to EGD. Risks of perforation and bleeding was discussed with the patient. This will be an outpatient procedure with IV sedation. Orders: Orders Insulin Today E11.65 - Type 2 diabetes mellitus with hyperglycemia, E66.9 - Obesity, unspecified, E78.00 - Pure hypercholesterolemia, unspecified, G47.33 - Obstructive sleep apnea (adult) (pediatric), I10 - Essential (primary) hypertension, J45.20 - Mild intermittent asthma, uncomplicated Zinc Today E11.65 - Type 2 diabetes mellitus with hyperglycemia, E66.9 - Obesity, unspecified, E78.00 - Pure hypercholesterolemia, unspecified, G47.33 - Obstructive sleep apnea (adult) (pediatric), I10 - Essential (primary) hypertension, J45.20 - Mild intermittent asthma, uncomplicated Vitamin B1 Today E11.65 - Type 2 diabetes mellitus with hyperglycemia, E66.9 - Obesity, unspecified, E78.00 - Pure hypercholesterolemia, unspecified, G47.33 - Obstructive sleep apnea (adult) (pediatric), I10 - Essential (primary) hypertension, J45.20 - Mild intermittent asthma, uncomplicated Vitamin A Today E11.65 - Type 2 diabetes mellitus with hyperglycemia, E66.9 - Obesity, unspecified, E78.00 - Pure hypercholesterolemia, unspecified, G47.33 - Obstructive sleep apnea (adult) (pediatric), I10 - Essential (primary) hypertension, J45.20 - Mild intermittent asthma, uncomplicated TSH reflex Free T4 Today E11.65 - Type 2 diabetes mellitus with hyperglycemia, E66.9 - Obesity, unspecified, E78.00 - Pure hypercholesterolemia, unspecified, G47.33 - Obstructive sleep apnea (adult) (pediatric), I10 - Essential (primary) hypertension, J45.20 - Mild intermittent asthma, uncomplicated Ferritin Today E11.65 - Type 2 diabetes mellitus with hyperglycemia, E66.9 - Obesity, unspecified, E78.00 - Pure hypercholesterolemia, unspecified, G47.33 - Obstructive sleep apnea (adult) (pediatric), I10 - Essential (primary) hypertension, J45.20 - Mild intermittent asthma, uncomplicated US abdomen comp w elastography Today E11.65 - Type 2 diabetes mellitus with hyperglycemia, E66.9 - Obesity, unspecified, E78.00 - Pure hypercholesterolemia, unspecified, G47.33 - Obstructive sleep apnea (adult) (pediatric), I10 - Essential (primary) hypertension, J45.20 - Mild intermittent asthma, uncomplicat ed ECG 12 lead EKG Today E11.65 - Type 2 diabetes mellitus with hyperglycemia, E66.9 - Obesity, unspecified, E78.00 - Pure hypercholesterolemia, unspecified, G47.33 - Obstructive sleep apnea (adult) (pediatric), I10 - Essential (primary) hypertension, J45.20 - Mild intermittent asthma, uncomplicated FL upper GI w air Today E11.65 - Type 2 diabetes mellitus with hyperglycemia, E66.9 - Obesity, unspecified, E78.00 - Pure hypercholesterolemia, unspecified, G47.33 - Obstructive sleep apnea (adult) (pediatric), I10 - Essential (primary) hypertension, J45.20 - Mild intermittent asthma, uncomplicated RT home sleep study Today E11.65 - Type 2 diabetes mellitus with hyperglycemia, E66.9 - Obesity, unspecified, E78.00 - Pure hypercholesterolemia, unspecified, G47.33 - Obstructive sleep apnea (adult) (pediatric), I10 - Essential (primary) hypertension, J45.20 - Mild intermittent asthma, uncomplicated Hemoglobin A1c Today E11.65 - Type 2 diabetes mellitus with hyperglycemia, E66.9 - Obesity, unspecified, E78.00 - Pure hypercholesterolemia, unspecified, G47.33 - Obstructive sleep apnea (adult) (pediatric), I10 - Essential (primary) hypertension, J45.20 - Mild intermittent asthma, uncomplicated H Pylori Breath Test Today E11.65 - Type 2 diabetes mellitus with hyperglycemia, E66.9 - Obesity, unspecified, E78.00 - Pure hypercholesterolemia, unspecified, G47.33 - Obstructive sleep apnea (adult) (pediatric), I10 - Essential (primary) hypertension, J45.20 - Mild intermittent asthma, uncomplicated Complete Blood Count Auto Diff Today E11.65 - Type 2 diabetes mellitus with hyperglycemia, E66.9 - Obesity, unspecified, E78.00 - Pure hypercholesterolemia, unspecified, G47.33 - Obstructive sleep apnea (adult) (pediatric), I10 - Essential (primary) hypertension, J45.20 - Mild intermittent asthma, uncomplicated Lipid Panel Today E11.65 - Type 2 diabetes mellitus with hyperglycemia, E66.9 - Obesity, unspecified, E78.00 - Pure hypercholesterolemia, unspecified, G47.33 - Obstructive sleep apnea (adult) (pediatric), I10 - Essential (primary) hypertension, J45.20 - Mild intermittent asthma, uncomplicated IRON PROFILE Today E11.65 - Type 2 diabetes mellitus with hyperglycemia, E66.9 - Obesity, unspecified, E78.00 - Pure hypercholesterolemia, unspecified, G47.33 - Obstructive sleep apnea (adult) (pediatric), I10 - Essential (primary) hypertension, J45.20 - Mild intermittent asthma, uncomplicated Comprehensive Met. Panel Today E11.65 - Type 2 diabetes mellitus with hyperglycemia, E66.9 - Obesity, unspecified, E78.00 - Pure hypercholesterolemia, unspecified, G47.33 - Obstructive sleep apnea (adult) (pediatric), I10 - Essential (primary) hypertension, J45.20 - Mild intermittent asthma, uncomplicated Vitamin B12 and Folate Today E11.65 - Type 2 diabetes mellitus with hyperglycemia, E66.9 - Obesity, unspecified, E78.00 - Pure hypercholesterolemia, unspecified, G47.33 - Obstructive sleep apnea (adult) (pediatric), I10 - Essential (primary) hypertension, J45.20 - Mild intermittent asthma, uncomplicated C Reactive Protein Today E11.65 - Type 2 diabetes mellitus with hyperglycemia, E66.9 - Obesity, unspecified, E78.00 - Pure hypercholesterolemia, unspecified, G47.33 - Obstructive sleep apnea (adult) (pediatric), I10 - Essential (primary) hypertension, J45.20 - Mild intermittent asthma, uncomplicated Vitamin D 25-OH Total Today E11.65 - Type 2 diabetes mellitus with hyperglycemia, E66.9 - Obesity, unspecified, E78.00 - Pure hypercholesterolemia, unspecified, G47.33 - Obstructive sleep apnea (adult) (pediatric), I10 - Essential (primary) hypertension, J45.20 - Mild intermittent asthma, uncomplicated XR chest 2V Today E11.65 - Type 2 diabetes mellitus with hyperglycemia, E66.9 - Obesity, unspecified, E78.00 - Pure hypercholesterolemia, unspecified, G47.33 - Obstructive sleep apnea (adult) (pediatric), I10 - Essential (primary) hypertension, J45.20 - Mild intermittent asthma, uncomplicated Referrals Behavioral Health Referral E11.65 - Type 2 diabetes mellitus with h yperglycemia, E66.9 - Obesity, unspecified, E78.00 - Pure hypercholesterolemia, unspecified, G47.33 - Obstructive sleep apnea (adult) (pediatric), I10 - Essential (primary) hypertension, J45.20 - Mild intermittent asthma, uncomplicated Nutrition/Dietitian Referral E11.65 - Type 2 diabetes mellitus with hyperglycemia, E66.9 - Obesity, unspecified, E78.00 - Pure hypercholesterolemia, unspecified, G47.33 - Obstructive sleep apnea (adult) (pediatric), I10 - Essential (primary) hypertension, J45.20 - Mild intermittent asthma, uncomplicated
[2024-03-25 11:50] VITALS: BMI 37.2
== END 2024-03-25 12:11 | disposition home or self-care (01) ==
LOC: HO.HBS 09:17
PROVIDERS: PCP Internal Medicine; Visit Provider Surgery
DX: E66.9 Obesity, unspecified (principal); Z68.37 Body mass index [BMI] 37.0-37.9, adult
CPT/HCPCS: 99443

== ENCOUNTER → 2024-03-25 09:17 | Outpatient (BNVA) | payer MEDICARE, SELFPAY | PROVIDERS: PCP Internal Medicine; Visit Provider Surgery ==

== ENCOUNTER 2024-03-29 12:06 | Outpatient (REF) | payer MEDICARE, SELFPAY ==
--- NOTE | ~2024-03-29 | XR_ITS ---
EXAMINATION: XR CHEST CLINICAL INFORMATION: Obesity. COMPARISON: None available. TECHNIQUE: 2 views of the chest were obtained. FINDINGS: The lungs are well inflated. Mild degenerative changes in the thoracic spine. Mild dextroscoliosis of the thoracolumbar spine. Surgical clips in the right upper quadrant. The lungs are well inflated. There is no gross pneumothorax. Heart size within normal limits. Mild bibasilar linear opacities, left greater than right, likely represent atelectasis, although an infectious/inflammatory process should also be considered in the appropriate clinical setting. XR/XR chest 2V IMPRESSION: Mild bibasilar linear opacities, left greater than right, likely represent atelectasis, although an infectious/inflammatory process should also be considered in the appropriate clinical setting.
--- NOTE | 2024-03-29 12:19 | ECG_ITS ---
Test Reason : e66.09 Blood Pressure : / mmHG Vent. Rate : 078 BPM Atrial Rate : 078 BPM P-R Int : 190 ms QRS Dur : 076 ms QT Int : 372 ms P-R-T Axes : 079 -31 041 degrees QTc Int : 424 ms Normal sinus rhythm Left axis deviation Septal infarct , age undetermined Abnormal ECG No previous ECGs available Referred By: Noble Rogel Electronically Signed By:MOISE SARAVIA
[2024-03-29 12:25] LABS: MANUAL DIFF FLAG NO
[2024-03-29 12:45] LABS: Basophils Percent Auto 0.4 % (0-2); Eosinophils Absolute Auto 0.3 X10*3/uL (0.0-0.4); Eosinophils Percent Auto 2.5 % (0-4); Hematocrit 39.2 % (37.0-47.0); Hemoglobin 13.2 g/dl (12.0-16.0); Imm Gran Abs Auto 0.04 X10*3/uL (0.00-0.03); Imm Gran Pct Auto 0.4 % (0.0-0.4); Lymphocytes Absolute Auto 2.9 X10*3/uL (1.2-4.9); Lymphocytes Percent Auto 29.6 % (20-40); Mean Corpuscular HGB Conc 33.7 g/dl (31.0-35.0); Mean Corpuscular Hemoglobin 29.2 pg (27.0-33.0); Mean Corpuscular Volume 86.7 fL (80.0-98.0); Mean Platelet Volume 10.2 fL (9.4-12.3); Monocytes Absolute Auto 0.8 X10*3/uL (0.1-1.2); Monocytes Percent Auto 7.8 % (2-11); Neutrophils Absolute Auto 5.9 x10*3/uL (2.0-8.3); Neutrophils Percent Auto 59.3 % (45-73); Platelet Count 214 X10*3/uL (160-400); Red Blood Count 4.52 X10*6/uL (4.20-5.50); Red Cell Distribution Width 13.4 % (11.0-16.0); White Blood Count 9.9 X10*3/uL (4.8-10.8)
[2024-03-29 13:00] LABS: Estimated Average Glucose 246 mg/dL; Hemoglobin A1c % 10.2 % (<6.0)
[2024-03-29 13:30] LABS: Alanine Aminotransferase 27 U/L (0-31); Albumin Level 4.2 g/dL (3.5-5.0); Alkaline Phosphatase 64 U/L (39-117); Anion Gap 13 (12-20); Aspartate Amino Transferase 27 U/L (5-31); Bilirubin Total 0.8 mg/dL (0.0-1.0); Blood Urea Nitrogen 27 mg/dL (9-16); C Reactive Protein 3.59 mg/dL (< or = 0.50); Calcium 11.2 mg/dL (8.4-10.2); Carbon Dioxide 32 mmol/L (22-29); Chloride 100 mmol/L (96-108); Cholesterol 189 mg/dL (<200); Estimated Glomerular Filt Rate 48; Glucose Random 204 mg/dL (60-115); HDL Cholesterol 36 mg/dL (>40); Iron 63 mcg/dL (30-160); LDL Cholesterol Calculated 114 mg/dL (<100); Percent Iron Saturation 22 % (15-50); Potassium 4.1 mmol/L (3.3-5.1); Sodium 141 mmol/L (135-145); Total Iron Binding Capacity 284 mcg/dL (228-428); Total Protein 7.6 g/dL (6.5-8.0); Triglycerides 198 mg/dL (<150); Unsaturated Iron Binding 221 ug/dL
[2024-03-29 13:41] LABS: Ferritin 176 ng/mL (10-250); TSH reflex Free T4 2.17 uIU/mL (0.32-4.0); Vitamin D 25-OH Total 39.2 ng/mL (>30)
[2024-03-29 13:50] LABS: Folate 15.2 ng/mL (> or = 4.0); Vitamin B12 813 pg/mL (200-900)
[2024-03-29 14:14] LABS: Insulin 488 uU/mL (2-29)
[2024-04-01 08:34] LABS: Zinc 79 mcg/dL (60-130)
[2024-04-02 21:03] LABS: Vitamin A 74 mcg/dL (38-98)
[2024-04-06 06:23] LABS: Vitamin B1 32 nmol/L (8-30)
== END 2024-03-29 12:07 | disposition home or self-care (01) ==
LOC: HO.LAB 12:06
PROVIDERS: PCP Internal Medicine; Visit Provider Surgery
DX: E66.9 Obesity, unspecified (principal); G47.33 Obstructive sleep apnea (adult) (pediatric); J45.20 Mild intermittent asthma, uncomplicated; E78.00 Pure hypercholesterolemia, unspecified; I10 Essential (primary) hypertension; E11.65 Type 2 diabetes mellitus with hyperglycemia
CPT/HCPCS: 36415; 71046; 80053; 80061; 82306; 82607; 82728; 82746; 83036; 83525; 83540; 84425; 84443; 84590; 84630; 85025; 86140; 93005

== ENCOUNTER → 2024-03-29 12:19 | Outpatient (BNV) | payer MEDICARE, SELFPAY | PROVIDERS: PCP Internal Medicine; Visit Provider Internal Medicine | DX: R94.31 Abnormal electrocardiogram [ECG] [EKG] (principal) | CPT/HCPCS: 93010 ==

== ENCOUNTER → 2024-04-04 12:45 | Outpatient (BNVA) | payer MEDICARE, SELFPAY | PROVIDERS: PCP Internal Medicine; Visit Provider Physician Assistant Surgical ==

== ENCOUNTER 2024-04-05 15:24 | Outpatient (AMB) | payer MEDICARE, SELFPAY ==
--- NOTE | 2024-04-05 14:44 | A.OFFWM_ITS ---
Intake Intake Visit Reasons: TV BH Intake Allergies oxycodone Allergy (Unknown, Verified 03/25/24 11:33) rash lisinopril Adverse Reaction (Intermediate, Verified 03/25/24 11:33) leg swelling metformin Adverse Reaction (Intermediate, Verified 03/25/24 11:33) diarrhea PFSH Medical History Carpal tunnel syndrome Left foot drop Chronic kidney disease Asthma Hypercholesterolemia Hypertension Type 2 diabetes mellitus with hyperglycemia Surgical History H/O lumbosacral spine surgery History of cholecystectomy History of section History of hysterectomy Family History Father Myocardial infarction Mother Pulmonary embolism Paternal Aunt Breast cancer Social History Housing: House Alcohol intake: never Patient Tobacco Use Status: Never used Tobacco e-Cigarette/Vaping Use: Never Used Second Hand Smoke Exposure: Yes service: No Current occupational status: employed Current occupational exposures/hazards: No Cognitive needs: No Hearing needs: No Vision needs: No Behavioral Health Assessment Weight Management Therapy Therapy Notes Details Patient is looking to have weight loss surgery to help improve her health and quality of life. She has had diabetes since around 45 years old after loosing her 20 year old son. Pt stated that she was in therapy when her son was younger, he was suicidal from age 9-19, had brain damage however unclear from what. Her son at age 20. She took medication when she retired 6 years ago after she suddenly felt everything she had been through. had depression for sometime and then it passed. Pt has no hx of problems with drugs or alcohol. Presenting Concerns Referral Source provider Reason for referral weight loss surgery evaluation Precipitating Event obesity Living Situation Current Living Situation Own At risk of losing current housing? No Satisfied with current living situation? Yes Comments Patient lives with her and two elderly people they care for. Food/Weight/Diet Expectations of change weight loss and maintenance History/Relationship with food Sometimes will use food to cope especially around her son's birthday/anniversary of his . Fast food, diet soda, did not eat after 6pm, would often skip meals. History/Relationship with weight Pt stated that her weight was always stable, she was/is very active. After having spinal surgeries she started to gain weight. History/Relationship with dieting after age 50 tried WW, Atkins, keto Binge Eating Do you frequently eat large amounts of food in short periods of time, not feeling physically hungry? No Do you feel out of control when you eat a large amount of food in a short period of time? No Do you eat large amounts of food rapidly and typically alone? Yes Night Eating Do you wake up at least once during the night to eat? No If you wake up in the night, do you find that it is necessary to eat something in order to fall back asleep? No Do you have little or no appetite in the morning and feel very hungry in the evening, often overeating between dinner and when you go to bed? Yes Social History Family history and relationship Mom when she was 9 years old, her father was an alcoholic, they were taken from him, then she went to live with an uncle and aunt, the aunt , and then went to [facility]. After that, they went to go live with an older aunt who favored her brother. Patient stated that her first from a motorcycle accident, she had two children with him. She has a strained rel. with her daughter and her son at age 20. 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 Currently has a disabled elderly man in her home for 15 years she cares for as well as her aunt with parkinsons. Developmental history and status no known issues Social support Cultural/Ethnic information Legal Involvement and History Current or historical involvement with the legal system? none reported Education Highest grade completed college for nursing Preferred learning style Auditory, Verbal, Written, Learn by doing and Visual Currently enrolled in educational program? No Interested in further educational program? No Employment Employment Status Retired Wants help to find employment? No Meaningful activities swimming, walking Financial Situation Describe current financial situation Comfortable Financial assistance? None Service Service? No Mental Health and Addiction Treatment Current/Past substance abuse? No Current/Past addictive behavior concerns? No Medical and Physical Health Summary Physical exam in the last year? No Pain Screening Current pain? No Pain in the last few months? No Medications Is the patient compliant with medications? Yes Does the patient have Sanchez Guardian in place? Not applicable Does the patient use complimentary health approaches? No Trauma/Abuse History History of trauma? Yes Assessment & Plan Assessment & Plan (1) Generalized anxiety disorder: Code(s): F41.1 - Generalized anxiety disorder (2) ELAINE (obstructive sleep apnea): Comment: decline CPAP 08/2021 Code(s): G47.33 - Obstructive sleep apnea (adult) (pediatric) (3) Type 2 diabetes mellitus with hyperglycemia: Code(s): E11.65 - Type 2 diabetes mellitus with hyperglycemia Qualifiers: Diabetes mellitus terminal operations supervisor insulin use: without terminal operations supervisor use Qualified Code(s): E11.65 - Type 2 diabetes mellitus with hyperglycemia Plan Patient denied any serious mental health issues. She has a history of trauma however did go through therapy for some time. She is cleared for surgery when ready. Telehealth Telehealth Telehealth Platform: Telephone Location of provider rendering services: other Location of patient: address on file Patient Identification confirmed using: Name, : Yes Telehealth method: voice only Patient verbally consented to treatment: Yes Patient verbally consented to billing insurance company: Yes Patient informed of any privacy concerns related to visit: Yes Minutes spent on Phone/Video with Pt.: 40 Coding Level of Care Code Tele Psy Diag Eval (16969) Diagnoses Generalized anxiety disorder F41.1 ELAINE (obstructive sleep apnea) G47.33 Type 2 diabetes mellitus with hyperglycemia, without long-term current use of insulin E11.65 Diabetes mellitus terminal operations supervisor insulin use: without snf use Time Spent (min) 45
--- OUTSIDE RECORDS SUMMARY | 2024-04-05 15:25 | XMS_ITS | Patient Health Record ---
Author Organization [facility] Address [address] [address] Care Team Providers Care Dowel Inspector Name Role Phone Stephanie Neri Unavailable [phone] ALLERGIES Allergen (clinical drug ingredient) Drug/Non Drug [...] toe of left foot (M20.42) Active confirmed [id number] Problem Type 2 diabetes mellitus with polyneuropathy (E11.42) Active confirmed [id number] PLAN OF TREATMENT No Information Insurance Providers Payer Name Payer Address Payer Phone Subscriber Number Group Number Insured Name Patient Relationship to Insured Coverage Start Date Coverage End Date [employer] [address] [phone] [id number] Daya Bobo Self - patient is the insured MEDICAL (GENERAL) HISTORY Medical History History ICD Code type II diabetes High blood pressure Kidney disease Epilepsy Surgical History Surgery Date(Month/Year) spine surgery left leg surgery upper thigh - Sciatica gall bladder Hospitalization History Reason Date(Month/[facility]) [facility]
== END 2024-04-05 15:24 | disposition home or self-care (01) ==
LOC: HO.HBST 15:24
PROVIDERS: PCP Internal Medicine; Visit Provider Counselor Mental Health
DX: F41.1 Generalized anxiety disorder (principal); G47.33 Obstructive sleep apnea (adult) (pediatric); E11.65 Type 2 diabetes mellitus with hyperglycemia
CPT/HCPCS: 90791

== ENCOUNTER → 2024-04-05 15:24 | Outpatient (BNVA) | payer MEDICARE, SELFPAY | PROVIDERS: PCP Internal Medicine; Visit Provider Counselor Mental Health | DX: F41.1 Generalized anxiety disorder (principal); G47.33 Obstructive sleep apnea (adult) (pediatric); E11.65 Type 2 diabetes mellitus with hyperglycemia ==

== ENCOUNTER 2024-04-18 12:32 | Outpatient (REF) | payer MEDICARE, SELFPAY ==
--- NOTE | 2024-04-18 13:30 | MHC.AU.HA3 ---
Hearing Instrument Follow-Up- Binaural Date of Visit: 04/18/24 Right Ear: Jani, Model, Color, Serial Number: Santo Kelley [id number] SN: [id number] Color: Black Bean Dumper Repair Warranty: 08/24/2025 Bean Dumper Loss and Damage Warranty: 08/24/2025 [facility] Service Plan: 06/18/2023 Battery Size: Rechargeable [employer] Work[employer]/Slim Tube: 1M Earmold/Dome/CShell/SlimTip:Small open dome with retention tail Type of Wax Guard: CeruShield Dispensed By: [facility] Date of Fittin06/18/2022 Left Ear: Jani, Model, Color, Serial Number: Santo Kelley [id number] SN: [id number] Color: Black Bean Dumper Repair Warranty: 08/24/2025 Bean Dumper Loss and Damage Warranty: 08/24/2025 [facility] Service Plan: 06/18/2023 Battery Size: Rechargeable [employer] Worker/Slim Tube: 1M Earmold/Dome/CShell/SlimTip: Small open dome with retention tail Type of Wax Guard: CeruShield Dispensed By: [facility] Date of Fittin06/18/2022 Follow-Up Summary: Updated hearing test (see audio). Right hearing aid reportedly having issues with charging. May need firmware updated. However, Daya no longer has Medicaid insurance. Now has [employer] plan. Discussed [id number]. Daya opted to forgo any hearing aid services today. She will inquire about hearing aid related benefits through her [email or web address] insurance. If she decides to pursue hearing aid services here, she will call to schedule an appointment, knowing there will be a self pay [id number], as [facility] [place] [facility] for any hearing aid related services. Recommendations: Hearing instrument follow-up or maintenance as needed. Please contact our clinic with any questions or concerns. Diagnosis Code(s): Primary Diagnosis: H90.3 Bilateral Sensorineural Hearing Loss Signature: Provider: Sole Montoya, [facility]
== END 2024-04-18 12:33 | disposition home or self-care (01) ==
LOC: HO.SH 12:32
PROVIDERS: Visit Provider Internal Medicine
DX: Z01.118 Encounter for examination of ears and hearing with other abnormal findings (principal); H90.3 Sensorineural hearing loss, bilateral
CPT/HCPCS: 92552; 92556

== ENCOUNTER 2024-04-20 09:17 | Outpatient (REF) | payer MEDICARE, SELFPAY ==
--- NOTE | ~2024-04-20 | US_ITS ---
EXAMINATION: US COMPLETE ABDOMEN WITH LIVER ELASTOGRAPHY CLINICAL INFORMATION: Obesity. COMPARISON: None available. TECHNIQUE: Real-time imaging of the abdominal viscera. Noninvasive ultrasound liver fibrosis assessment is performed using Ya ElastPQ point quantification shear wave elastography (2D-SWE) with a C5-2 MHz transducer. Multiple elastography samples are obtained. FINDINGS: PANCREAS: Normal. The visualized pancreatic head and body are normal in appearance. The remainder of the pancreas is obscured from visualization by the overlying bowel gas. ABDOMINAL AORTA: The proximal, middle, and distal aortic segments are normal in caliber. INFERIOR VENA CAVA: Visualized portions are normal. LIVER: The liver shows normal contour and increased echogenicity. There is a benign, calcified right hepatic lobe granuloma. No focal solid lesion or intrahepatic biliary duct dilatation. Within the left hepatic lobe, a 1.4 x 2.2 x 1.4 cm mildly complex, septated cyst is seen, and there is a further 7 mm benign, simple cyst is seen. The right lobe measures 20.2 cm in length. The left lobe measures 11.1 cm in length. Portal flow is towards the liver (hepatopetal). Shear wave liver elastography median stiffness is 1.79 m/s (reference: normal median stiffness is 1.3 m/s or less). IQR/median stiffness to assess sampling precision is 0.11 (reference: good quality data set is IQR/median stiffness of 0.15 or less). GALLBLADDER: Surgically absent. COMMON BILE DUCT: Normal in caliber measuring 0.6 cm in diameter. RIGHT KIDNEY: Normal. No hydronephrosis. No renal calculi or focal parenchymal lesions. The kidney measures 12.5 cm in maximum dimension. LEFT KIDNEY: Normal. No hydronephrosis. No renal calculi or focal parenchymal lesions. The kidney measures 12.0 cm in maximum dimension. SPLEEN: Normal. The spleen measures 12.2 cm in maximum dimension. FREE FLUID: None. US/US abdomen comp w elastography IMPRESSION: 1. There is hepatomegaly. 2. There is generalized increase in hepatic echotexture, consistent with fatty infiltration or hepatocellular disease. Please correlate clinically. No focal hepatic mass or intrahepatic biliary dilatation is seen. 3. Liver elastography: Measurements are suggestive of compensated advanced chronic liver disease but need further test for confirmation. 4. A 2.2 cm mildly complex left hepatic lobe cyst with fine septations is seen. As a precaution, recommend follow-up ultrasound examination at a 6 month interval to ensure stability. 5. The gallbladder is surgically absent. REFERENCE: Society of Radiologists in Ultrasound Liver Stiffness Thresholds (2020): LIVER STIFFNESS THRESHOLDS: *Liver Stiffness equal or less than 1.3 m/s: High probability of being normal. *Liver Stiffness less than 1.7 m/s: In the absence of other known clinical signs, rules out compensated advanced chronic liver disease. *Liver Stiffness 1.7-2.1 m/s: Suggestive of compensated advanced chronic liver disease but need further test for confirmation. *Liver Stiffness over 2.1 m/s: Rules in compensated advanced chronic liver disease. *Liver Stiffness over 2.4 m/s: Suggestive of clinically significant portal hypertension. QUALITY OF DATA SET: *IQR/Median value equal or less than 0.15 implies a quality data set. *IQR/Median value over 0.15 implies a poor quality data set. SIGNIFICANT CHANGE FROM PRIOR EXAM: Significant change if liver stiffness measurement is 10% or greater from prior exam. OTHER CONSIDERATIONS: The stage of liver fibrosis may be overestimated in the setting of acute hepatitis, liver inflammation, elevated liver function tests, hepatic vascular congestion, obstructive cholestasis, non-fasting state, and infiltrative diseases such as amyloidosis and lymphoma. In some patients with NAFLD, the liver stiffness thresholds for compensated advanced chronic liver disease may be lower. In causes other than viral hepatitis and NAFLD, liver stiffness thresholds are not well established.
--- NOTE | 2024-04-20 10:16 | CA_ITS ---
Transthoracic Echocardiogram Patient (Last, First, Middle): Daya Bobo, Gender: Female Date of : 1955 Age: 68 Procedure Date: 04/20/2024 Procedure Type: Transthoracic Echocardiogram Location: OP Height: 160.02 cm Weight: 95.26 kg BSA: 1.97 m2 Heart Rate: 69 bpm BP: 132 / 82 mmHg Customs Inspector: ROSALINDA Referring MD: Noble Rogel MD Symptoms: R94.31 - Abnormal electrocardiogram [ECG] [EKG] Study Quality: Adequate w contrast ECG Rhythm: Sinus Conclusions: - The left ventricular systolic function is normal. The calculated ejection fraction is 58% by biplane method. - No obvious valvular pathology seen on this study. Findings Procedure Information Contrast agent, definity, is being given per protocol without apparent complications. Left Ventricle Normal left ventricular cavity size. There is mildly increased left ventricular wall thickness. The left ventricular systolic function is normal. The calculated ejection fraction is 58% by biplane method. There is no evidence of regional wall motion abnormalities. Evidence suggests grade I (mild) diastolic dysfunction. Right Ventricle Normal right ventricular cavity size. There is low normal right ventricular systolic function. Atria Both atria are normal in size. Aortic Valve There is a normal trileaflet aortic valve. There is no aortic valve stenosis. There is no aortic valve regurgitation. Mitral Valve The mitral valve appears normal. There is no mitral valve regurgitation. There is no mitral valve stenosis. Pulmonic Valve The pulmonic valve is likely normal. Tricuspid Valve There is no tricuspid valve regurgitation. Tricuspid regurgitation envelope is inadequate for calculation of right ventricular systolic pressure. Great Vessels The aortic arch is normal in size. There is mild dilatation of the ascending aorta measuring 3.80 cm. Venous The inferior vena cava is normal in size and collapses greater than 50% with inspiration. Pericardium/Pleural There is no evidence of pericardial effusion. Prior Study Comparison No prior study available for comparison. Recommendations, Care & Conclusions No obvious valvular pathology seen on this study. Measurements 2D Linear Measurements IVSd: 1.23 0.6-0.9/0.6-1.0 cm LVIDd: 4.71 3.9-5.3/4.2-5.9 cm LVIDd Index: 2.39 2.4-3.2/2.2-3.1 cm/m2 LVIDs: 3.49 2.0-3.6 cm LVPWd: 1.31 0.7-1.1 cm LA Diam: 3.80 2.7-3.8/3.0-4.0 cm LAIDs Index: 1.93 1.5-2.3 cm/m2 LV Mass: 287.65 67-162/88-224 g LV Mass Index: 146.02 43-95/49-115 g/m2 LVOT Diam: 2.20 3.0+(-)1.3 cm 2D Systolic Function EF 4C: 50.50 >55% EF 2C: 62.60 >55% EF BiP: 57.50 >55% Mitral Valve MV Pk E: 0.59 MV PK A: 0.93 MV Decel Time: 246.00 E/A: 0.60 E'Lateral: 4.35 E'Medial: 3.59 E/E' Med: 16.40 E/E' Lat: 13.50 PHT: 72.00 MVA PHT: 3.06 Decel [place]: 2.38 Aortic Valve AoV Pk Low: 0.96 AoV Pk Grad: 4.00 ELENA: 3.30 LVOT LVOT Pk Low: 0.78 LVOT Mn Low: 0.65 LVOT VTI: 0.20 LVOT Pk Grad: 2.00 LVOT Mn Grad: 2.00 LVOT Diam: 2.20 LVOT Area: 3.80 Diastolic Function MV Pk E: 0.59 MV Pk A: 0.93 E/A: 0.60 E'Medial: 3.59 E/E' Med: 16.40 E' Laterial: 4.35 E/E' Lat: 13.50 Right Ventricle TAPSE (mm): 15.80 TVS' Low: 9.90 Tricuspid Valve RA Press: 3.00 Great Vessels Aorta Sinus of Valsalva: 3.70 2.0-3.5 cm Ao Asc: 3.80 2.1-3.4 cm Ao Arch: 3.60 Pulmonary Valve PV Pk Low: 0.63 Peak PV Grad: 2.00 Updated in Other Vendor System with Status of Final Marcus Viera MD electronically signed on 04/21/2024 3:51:48 PM with status of Final
== END 2024-04-20 09:18 | disposition home or self-care (01) ==
LOC: HO.US 09:17
PROVIDERS: PCP Internal Medicine; Visit Provider Surgery
DX: E66.9 Obesity, unspecified (principal); G47.33 Obstructive sleep apnea (adult) (pediatric); J45.20 Mild intermittent asthma, uncomplicated; E78.00 Pure hypercholesterolemia, unspecified; I10 Essential (primary) hypertension; E11.65 Type 2 diabetes mellitus with hyperglycemia; R94.31 Abnormal electrocardiogram [ECG] [EKG]
CPT/HCPCS: 76700; 76981; 93306; Q9957

== ENCOUNTER → 2024-04-20 10:16 | Outpatient (BNV) | payer MEDICARE, SELFPAY | PROVIDERS: PCP Internal Medicine; Visit Provider Internal Medicine | DX: I51.89 Other ill-defined heart diseases (principal) | CPT/HCPCS: 93306 ==

== ENCOUNTER 2024-04-22 14:03 | Outpatient (AMB) | payer MEDICARE, SELFPAY ==
--- NOTE | 2024-04-22 14:06 | A.OFFVIS_ITS ---
VS Expanded 04/22/24 14:14 BP 147/71 H Blood Pressure Location Rt brachial Blood Pressure Position Sitting Pulse 75 Pulse Source Pulse Oximeter Temp 97.1 F Temperature Source Temporal Artery Scan Pulse Oximetry 95 Oxygen Delivery Method Room Air Height 5 ft 3 in Weight 201 lb 6.4 oz BMI 35.7 Body Fat % 35.8 Body Fat Mass 72.0 Fat Free Mass 129.2 Visceral Fat Rating 12.0 Body Water % 45.3 Body Water Mass 91.2 Muscle Mass/Score 122.6 Basal Metabolic Rate/Score 1,740 Intake Visit Reasons: (OV) F/U SWL Vest Baster Required: No Allergies oxycodone Allergy (Unknown, Verified 03/25/24 11:33) rash lisinopril Adverse Reaction (Intermediate, Verified 03/25/24 11:33) leg swelling metformin Adverse Reaction (Intermediate, Verified 03/25/24 11:33) diarrhea Medication List - Last Reconciled 04/22/24 by MAGALI Nogueira alendronate 70 mg PO QWEEK amlodipine 5 mg PO DAILY aspirin 81 mg PO DAILY atorvastatin 40 mg PO BEDTIME 90 days [AUTOPAP 5-20 cm H2O humidified AIR As directed] blood pressure monitor (Blood Pressure Kit) As directed blood sugar diagnostic (OneTouch Verio test strips) As directed Three times per day blood sugar diagnostic (OneTouch Verio test strips) As directed check blood sugars 3 times a day blood-glucose meter (OneAbloomyuch Verio Flex Start kit) As directed check blood sugars 3 times a day blood-glucose meter (OneTouch Verio Flex Meter) As directed calcium carbonate-vitamin D3 500 mg-10 mcg (400 unit) (Oyster Shell Calcium- Vitamin D3) 1 tab PO BID 90 days carbidopa-levodopa 25-100 mg 1 tab PO QID cetirizine 10 mg PO DAILY 30 days [Diabetic shoes As directed] fluticasone furoate-vilanterol 200-25 mcg/dose (Breo Ellipta) 1 ea inhalation DAILY fluticasone propionate 50 mcg/actuation (Flonase Allergy Relief) 1 spray intranasal BID 30 days lancets (FreeStyle Lancets) As directed check BS TID lancets (FreeStyle Lancets) Use 1 lancet three times a day lancing device with lancets (Pure Storage Delica Plus Lancing Device kit) As directed three times per day losartan 100 mg PO DAILY nebulizers (Aeroneb Go Nebulizer) As directed updraft treatment Q 4 hours Novolin R FlexPen (insulin regular human) 15 units (0.15 mL) subcut TID 90 days NS omega 2-bjh-fdj-fish oil 1,200 (144-216) mg (Fish Oil) caps PO pen needle, diabetic (Unifine Pentips) As directed pen needle, diabetic (1st Tier Unifine Pentips) Use 1 pen needle four times a day tirzepatide (Mounjaro) 2.5 mg (0.5 mL) subcut QWEEK 4 weeks triamcinolone acetonide 0.1% 1 appl topical BID HPI Comments Details: Patient is a pleasant 68-year-old female who returns to the office in follow-up for surgical weight loss planning. She was initially seen in the metabolic clinic on 01/29/2024. At that time, her weight was 208.8 lb with a BMI of 37. Her weight today is 201.4 lb with a BMI of 35.7, indicating at 7.4 lb weight loss or 3.5% total body weight loss. She states that she takes long-acting length insulin, 65 units at night. She has been reporting a.m. blood sugars less than 100. This morning it was in the 60s. She felt symptomatic with this. She had her morning shake and felt improvement. I have instructed her to decrease her evening insulin from 65 units to 40 units. She additionally reports that she was started on calcium plus D by her primary care and since then has noticed increased constipation. Last bowel movement 4 days ago. Meal plan: 2 CELEBRATE REBUILD protein shakes (ONE scoop EACH in 8oz low fat unsweetened almond milk each) at 8am-10am and 11am-1pm, 1 protein bar (CELEBRATE protein bars) at 2pm-4pm, dinner at 5pm (8 forks of protein and 8 forks of salad/vegetables) AND one more protein bar after dinner at 7pm-9pm. Drinking: maybe 96 oz daily Exercise plan: 12.5 mi outdoor bike daily, 2 hours, not tracking calories. weighted urielantonieta chloé [facility] Medical History Carpal tunnel syndrome Left foot drop Chronic kidney disease Asthma Hypercholesterolemia Hypertension Type 2 diabetes mellitus with hyperglycemia Surgical History H/O lumbosacral spine surgery History of cholecystectomy History of section History of hysterectomy Family History Father Myocardial infarction Mother Pulmonary embolism Paternal Aunt Breast cancer Social History Housing: House Alcohol intake: never Patient Tobacco Use Status: Never used Tobacco e-Cigarette/Vaping Use: Never Used Second Hand Smoke Exposure: Yes service: No Current occupational status: employed Current occupational exposures/hazards: No Cognitive needs: No Hearing needs: No Vision needs: No Physical Exam Vital Signs: Last Vital Signs Temp 97.1 F 04/22/24 14:14 Pulse 75 04/22/24 14:14 BP 147/71 H 04/22/24 14:14 Pulse Ox 95 04/22/24 14:14 Oxygen Delivery Method Room Air 04/22/24 14:14 BMI result Body Mass Index 35.7 Const General: healthy appearing and no acute distress Resp Effort & Inspection: normal respiratory effort Auscultation: clear to auscultation bilaterally Cardio Rate: regular rate Rhythm: regular rhythm GI Auscultation: normal bowel sounds Extrem General: Yes normal to inspection Assessment & Plan Assessment & Plan (1) Obesity (BMI 30-39.9): Code(s): E66.9 - Obesity, unspecified Category: Medical Plan: Overall, doing well. Recommend changing her meal plans slightly: 2 CELEBRATE REBUILD protein shakes (ONE scoop EACH in 8oz low fat unsweetened almond milk each) at 8am-10am and 11am-1pm, 1 protein bar (CELEBRATE protein bars) at 2pm-4pm, dinner at 5pm (8 forks of protein and 8 forks of salad/vegetables) AND one more 1/2 protein bar after dinner at 7pm-8pm. Additionally, I sent in a prescription for Dulcolax suppository given her constipation and recommend Colace 2 tablets daily. For exercise, recommend adding rowing machine several times a week and swimming several times a week. Additionally given her symptomatic hypoglycemia, recommend decreasing nighttime long-acting insulin from 65 units to 40 units. Continue to follow clinically. Return to clinic 1 month. Medications: New bisacodyl (Dulcolax (bisacodyl)) 10 mg UT DAILY PRN 12 ea 0RF constipation
[2024-04-22 14:14] VITALS: BP 147/71; PULSE 75; TEMP 36.2; O2SAT 95; BMI 35.7
== END 2024-04-22 14:49 | disposition home or self-care (01) ==
PROVIDERS: PCP Internal Medicine; Visit Provider Physician Assistant Surgical
DX: E66.9 Obesity, unspecified (principal)
CPT/HCPCS: 99213

== ENCOUNTER → 2024-04-22 14:03 | Outpatient (BNVA) | payer MEDICARE, SELFPAY | PROVIDERS: PCP Internal Medicine; Visit Provider Physician Assistant Surgical | DX: E66.9 Obesity, unspecified (principal); E11.65 Type 2 diabetes mellitus with hyperglycemia; Z68.35 Body mass index [BMI] 35.0-35.9, adult; Z79.4 Long term (current) use of insulin | CPT/HCPCS: 99212 ==

== ENCOUNTER → 2024-05-05 07:37 | Outpatient (REF) | payer MEDICARE, SELFPAY ==
--- NOTE | ~2024-05-05 | NM_ITS ---
Myocardial perfusion study Indication: Abnormal EKG to evaluate for myocardial ischemia Technique: The patient was brought in for a Lexiscan perfusion study on 05/05/2024. Patient performed low-level exercise and was injected 0.4 mg of Lexiscan intravenously. Within a minute of injection, 30 mCi of sestamibi was given intravenously. Images were obtained using the SPECT gamma camera interlaced with the gating device. Images were obtained in supine position. Resting perfusion study was performed on 05/06/2024. Patient was administered 30 mCi of sestamibi intravenously at rest. Images were then obtained in supine position. Images obtained with and without CT attenuation. Total DLP 213 mGy-cm. Images were processed with the software and compared side to side in short axis, horizontal long axis and vertical long axis views. Findings: The stress perfusion study showed non attenuated images show focal area of absent uptake in the distal inferolateral as well as inferoapical wall of the LV myocardium and mildly reduced uptake in the lateral wall as well as mildly reduced uptake in the basal and mid inferior wall of the LV myocardium. Attenuation corrected images show mildly reduced uptake in the lateral wall of the LV myocardium.. The gated study shows normal LV systolic function with calculated LVEF of 53%. LV cavity is normal in size. The gated study shows normal systolic wall thickening and contraction of segments. Resting study shows non attenuated images show normal uptake in all segments of LV myocardium. Gating at rest reveals normal systolic wall motion with ejection fraction at 60%. The findings are consistent with there is small area of severe intensity reversible defect of the distal inferolateral and inferoapical wall suggestive series ischemia with mild intensity ischemia of the inferolateral and inferior wall of the LV myocardium.. NM/NM zain perf SPECT rest & str Impression: 1. Myocardial perfusion imaging study shows severe ischemia DISTAL inferolateral and inferoapical wall with mild intensity ischemia of the inferolateral and inferior wall. 2. Gated LVEF is 53% with stress and 60% rest 3. Transient ischemic dilatation not present EKG is nondiagnostic for ischemia
--- NOTE | 2024-05-05 07:40 | CA_ITS ---
Acquisition Time: 2024-05-05 08:00:55 Total Exercise Time: 00:02:00 Test Indications: ABN EKG Medications: SEE H Protocol: LEXISCAN Max HR: 109 BPM 71% of Pred: 152 BPM Max BP: 164/090 mmHG Max Work Load: 1.0 METS Pharmacological stress test with Lexiscan injection while sitting and kicking her legs, without anginal sympotoms, without arrhythmias, with normotensive response to injection, with nondiagnoisitic EKGs. Aminophylline 75mg VIP given to reverse Lexiscan. Nuclear images pending. Test reviewed with Dr Victor Referred By: Noble Rogel Overread By: Lottie Morgan
== END ==
LOC: HO.CARD 07:37
PROVIDERS: PCP Internal Medicine; Visit Provider Surgery
DX: R94.31 Abnormal electrocardiogram [ECG] [EKG] (principal)
CPT/HCPCS: 78452; 93017; A9500; J0280; J2785

== ENCOUNTER → 2024-05-05 07:40 | Outpatient (BNV) | payer MEDICARE, SELFPAY | PROVIDERS: PCP Internal Medicine; Visit Provider Nurse Practitioner | DX: R94.31 Abnormal electrocardiogram [ECG] [EKG] (principal) | CPT/HCPCS: 78452; 93016; 93018 ==

== ENCOUNTER 2024-05-11 | Outpatient (REF) | payer MEDICARE, SELFPAY ==
[2024-05-12 15:49] LABS: Creatinine Urine 142.43 mg/dL; Microalbum/Creatinine Ratio Ur 157.9 ug/mg cr (<30)
== END 2024-05-11 00:01 | disposition home or self-care (01) ==
LOC: HO.LNP
PROVIDERS: Visit Provider Internal Medicine
DX: E11.9 Type 2 diabetes mellitus without complications (principal)
CPT/HCPCS: 82043; 82570

== ENCOUNTER → 2024-05-11 11:19 | Outpatient (BNVA) | payer MEDICARE, SELFPAY | PROVIDERS: PCP Internal Medicine; Visit Provider Physician Assistant Surgical ==

== ENCOUNTER 2024-05-11 11:38 | Outpatient (REF) | payer MEDICARE, SELFPAY ==
[2024-05-11 13:11] LABS: Alanine Aminotransferase 20 U/L (0-31); Albumin Level 4.2 g/dL (3.5-5.0); Alkaline Phosphatase 49 U/L (39-117); Anion Gap 14 (12-20); Aspartate Amino Transferase 19 U/L (5-31); Bilirubin Total 0.7 mg/dL (0.0-1.0); Blood Urea Nitrogen 27 mg/dL (9-16); Calcium 10.7 mg/dL (8.4-10.2); Carbon Dioxide 29 mmol/L (22-29); Chloride 103 mmol/L (96-108); Cholesterol 123 mg/dL (<200); Estimated Glomerular Filt Rate 52; Glucose Fasting 85 mg/dL (60-99); HDL Cholesterol 35 mg/dL (>40); LDL Cholesterol Calculated 69 mg/dL (<100); Sodium 142 mmol/L (135-145); Total Protein 7.3 g/dL (6.5-8.0); Triglycerides 98 mg/dL (<150)
[2024-05-11 13:15] LABS: Vitamin D 25-OH Total 50.2 ng/mL (>30)
[2024-05-11 13:24] LABS: Folate 14.6 ng/mL (> or = 4.0); Vitamin B12 775 pg/mL (200-900)
== END 2024-05-11 11:39 | disposition home or self-care (01) ==
LOC: HO.LAB 11:38
PROVIDERS: PCP Internal Medicine; Visit Provider Internal Medicine
DX: E55.9 Vitamin D deficiency, unspecified (principal); E11.65 Type 2 diabetes mellitus with hyperglycemia; E78.5 Hyperlipidemia, unspecified; E53.8 Deficiency of other specified B group vitamins
CPT/HCPCS: 36415; 80053; 80061; 82306; 82607; 82746

== ENCOUNTER 2024-05-12 14:37 | Outpatient (AMB) | payer MEDICARE, SELFPAY ==
[2024-05-12 16:05] VITALS: BP 142/80; BMI 34.9
--- NOTE | 2024-05-12 16:05 | MHC.PC.OV ---
Vital Signs 05/12/24 16:05 05/12/24 17:44 Height 5 ft 3 in Weight 197 lb BMI 34.9 BP 142/80 H 140/80 H Blood Pressure Location Lt brachial Lt brachial Position Sitting Sitting Intake Visit Reasons: dm NEEDS 30 MINUTES Intake Note: Patient here for a follow up DM [employer] Solutions Specialist Required: No Accompanied by: Self / Same As Patient Allergies oxycodone Allergy (Unknown, Verified 05/12/24 16:22) rash adhesive tape Adverse Reaction (Intermediate, Verified 05/12/24 16:22) Itching lisinopril Adverse Reaction (Intermediate, Verified 05/12/24 16:22) leg swelling metformin Adverse Reaction (Intermediate, Verified 05/12/24 16:22) diarrhea Medication List - Last Reconciled 05/12/24 by Precious Orourke MD alendronate 70 mg PO QWEEK amlodipine 5 mg PO DAILY aspirin 81 mg PO DAILY atorvastatin 40 mg PO BEDTIME 90 days [AUTOPAP 5-20 cm H2O humidified AIR As directed] blood pressure monitor (Blood Pressure Kit) As directed blood sugar diagnostic (OneTouch Verio test strips) As directed Three times per day blood sugar diagnostic (OneTouch Verio test strips) As directed check blood sugars 3 times a day blood-glucose meter (OneTouch Verio Flex Start kit) As directed check blood sugars 3 times a day blood-glucose meter (OneTouch Verio Flex Meter) As directed calcium carbonate-vitamin D3 500 mg-10 mcg (400 unit) (Oyster Shell Calcium-Vitamin D3) 1 tab PO BID 90 days carbidopa-levodopa 25-100 mg 1 tab PO QID cetirizine 10 mg PO DAILY 30 days [Diabetic shoes As directed] fluticasone furoate-vilanterol 200-25 mcg/dose (Breo Ellipta) 1 ea inhalation DAILY fluticasone propionate 50 mcg/actuation (Flonase Allergy Relief) 1 spray intranasal BID 30 days insulin degludec (Tresiba FlexTouch U-100 insulin) units subcut lancets (FreeStyle Lancets) As directed check BS TID lancets (FreeStyle Lancets) Use 1 lancet three times a day lancets ([employer]our[employer]Touch Delica Plus Lancet) DIRECTED THREE TIMES PER DAY losartan 100 mg PO DAILY nebulizers (Aeroneb Go Nebulizer) As directed updraft treatment Q 4 hours pen needle, diabetic (Unifine Pentips) As directed pen needle, diabetic (1st Tier Unifine Pentips) Use 1 pen needle four times a day triamcinolone acetonide 0.1% 1 appl topical BID Tobacco use date assessed: 01/07/24 Dental Screening Dental Screen Date: 01/07/24 HPI HPI Comments History of Present Illness Details This is a 68-year-old female with diabetes mellitus type 2 on long-term current use of insulin, hypertension, hyperlipidemia and seizures that comes today for follow-up on her conditions. A1c has improved. Blood pressure stable. LDL within goal. Has not had a seizure in a while. Had a recent stress test done and I send a message to Cardiology for it. She denies any chest pain or shortness on breath. Has elevated calcium that will be repeated. [facility] Medical History (Updated 05/12/24 @ 16:45 by Precious Orourke MD) Carpal tunnel syndrome Left foot drop Chronic kidney disease Asthma Hypercholesterolemia Hypertension Type 2 diabetes mellitus with hyperglycemia Surgical History H/O lumbosacral spine surgery History of cholecystectomy History of section History of hysterectomy Family History Father Myocardial infarction Mother Pulmonary embolism Paternal Aunt Breast cancer Social History Housing: House Alcohol intake: never Patient Tobacco Use Status: Never used Tobacco e-Cigarette/Vaping Use: Never Used Second Hand Smoke Exposure: Yes service: No Current occupational status: employed Current occupational exposures/hazards: No Cognitive needs: No Hearing needs: No Vision needs: No Questionnaire Thrive Questionnaire Date Thrive assessed: 01/07/24 ADARSH-7 AMB Questionnaire ADARSH-7 Date ADARSH - 7 assessed: 01/07/24 Source: Developed by Drs. Micah Daily, Gloria Kidd, Kumar Arias and colleagues, with an educational jeremy from [employer]. Review of Systems Const All systems reviewed & are unremarkable except as noted in HPI and below Card Denies chest pain at rest, Denies chest pain with activity, Denies edema, Denies irregular heart rhythm, Denies claudication, Denies dyspnea, Denies dyspnea on exertion, Denies orthopnea, Denies paroxysmal nocturnal dyspnea and Denies slow heart rate Resp Denies cough, Denies dyspnea and Denies dyspnea on exertion GI Denies abdominal pain, Denies change in bowel habits, Denies excessive flatus, Denies nausea and Denies vomiting Denies urinary incontinence, Denies urinary hesitancy and Denies urinary urgency Physical exam (Primary Care) Vital Signs: Last Vital Signs BP 140/80 H 05/12/24 17:44 BMI result Body Mass Index 34.9 BMI Assessment/Plan discussion: High BMI High, discussed plan: lifestyle, weight reduction, dietary and physical activity Tobacco/Smoking Status: Tobacco use Status Tobacco use date assessed 01/07/24 05/12/24 16:16 Patient Tobacco Use Status Never used Tobacco 05/12/24 16:16 e-Cigarette/Vaping Use Never Used 05/12/24 16:16 Thrive Assessment: Date of Thrive Assessment Date Thrive assessed 01/07/24 05/12/24 16:16 Resp Effort & Inspection: normal respiratory effort Auscultation: clear to auscultation bilaterally Cardio Jugular venous distension: no JVD Rate: regular rate Rhythm: regular rhythm Heart sounds: S1 normal heart sound present and S2 normal heart sound present Extrem General: Yes full ROM Results AMB Hemoglobin A1c AMB Hemoglobin A1c 7.6 % Last Edit by REINALDO Patel on 05/12/24 16:25 Results Reviewed Results Reviewed: Laboratory Last Values Hgb A1c (Clinic) 7.6 % (4.0-6.0) H 05/12/24 16:19 Assessment and Plan Assessment & Plan (1) Seizure: Comment: January 2021, Seizures Code(s): R56.9 - Unspecified convulsions Plan: Follow-up with neurology. (2) Type 2 diabetes mellitus with hyperglycemia: Code(s): E11.65 - Type 2 diabetes mellitus with hyperglycemia Qualifiers: Diabetes mellitus joint terminal attack controller insulin use: without joint terminal attack controller use Qualified Code(s): E11.65 - Type 2 diabetes mellitus with hyperglycemia Plan: Continue insulin. A1c goal is equal or less than 7%. (3) Hypertension: Code(s): I10 - Essential (primary) hypertension Qualifiers: Hypertension type: essential hypertension Qualified Code(s): I10 - Essential (primary) hypertension Plan: Continue losartan and amlodipine. Blood pressure goal is equal less than 130/80. (4) Hypercholesterolemia: Code(s): E78.00 - Pure hypercholesterolemia, unspecified Plan: Continue statins. LDL goal is less than 70. Orders: Orders AMB Hemoglobin A1c 05/12/24 E11.65 - Type 2 diabetes mellitus with hyperglycemia Lipid Panel 4 Months E78.5 - Hyperlipidemia, unspecified Comprehensive [place]. Panel Fast 4 Months E11.65 - Type 2 diabetes mellitus with hyperglycemia Microalbumin, Random (w Creat) 4 Months E11.9 - Type 2 diabetes mellitus without complications Vitamin D 25-OH Total 4 Months E55.9 - Vitamin D deficiency, unspecified Calcium, Ionized 4 Months E83.52 - Hypercalcemia Parathyroid Hormone Intact 4 Months E83.52 - Hypercalcemia Phosphorus 4 Months E83.52 - Hypercalcemia Vitamin D 25-OH Total 05/12/24 E55.9 - Vitamin D deficiency, unspecified, E83.52 - Hypercalcemia Coding Level of Care Code Est Pt Level 4 (57853) Complex EM visit Add On G2211 Diagnoses Seizure R56.9 Type 2 diabetes mellitus with hyperglycemia, without long-term current use of insulin E11.65 Diabetes mellitus joint terminal attack controller insulin use: without joint terminal attack controller use Essential hypertension I10 Hypertension type: essential hypertension Hypercholesterolemia E78.00 Time Spent (min) 23
[2024-05-12 17:44] VITALS: BP 140/80
== END 2024-05-12 16:47 | disposition home or self-care (01) ==
PROVIDERS: PCP Internal Medicine; Visit Provider Internal Medicine
DX: E11.65 Type 2 diabetes mellitus with hyperglycemia (principal)
CPT/HCPCS: 83036; 99214; G2211

== ENCOUNTER → 2024-05-19 11:13 | Outpatient (BNVA) | payer MEDICARE, SELFPAY | PROVIDERS: PCP Internal Medicine; Visit Provider Physician Assistant Surgical ==

== ENCOUNTER 2024-05-23 12:27 | Outpatient (AMB) | payer MEDICARE, SELFPAY ==
[2024-05-23 12:57] VITALS: BP 140/60; PULSE 76; BMI 35.5
--- NOTE | 2024-05-23 12:57 | A.OFFVIS_ITS ---
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 Juvenile Probation Officer Required: No Accompanied by: Self / Same As Patient Allergies oxycodone Allergy (Unknown, Verified 05/12/24 16:22) rash adhesive tape Adverse Reaction (Intermediate, Verified 05/12/24 16:22) Itching lisinopril Adverse Reaction (Intermediate, Verified 05/12/24 16:22) leg swelling metformin Adverse Reaction (Intermediate, Verified 05/12/24 16:22) diarrhea Medication List - Last Reconciled 05/23/24 by Marcus Viera MD amlodipine 5 mg PO DAILY aspirin 81 mg PO DAILY atorvastatin 40 mg PO BEDTIME 90 days [AUTOPAP 5-20 cm H2O humidified AIR As directed] blood pressure monitor (Blood Pressure Kit) As directed blood sugar diagnostic (OneTouch Verio test strips) As directed Three times per day blood sugar diagnostic (OneTouch Verio test strips) As directed check blood sugars 3 times a day blood-glucose meter (OneTouch Verio Flex Start kit) As directed check blood sugars 3 times a day blood-glucose meter (OneTouch Verio Flex Meter) As directed calcium carbonate-vitamin D3 500 mg-10 mcg (400 unit) (Oyster Shell Calcium- Vitamin D3) 1 tab PO BID 90 days carbidopa-levodopa 25-100 mg 1 tab PO QID cetirizine 10 mg PO DAILY 30 days [Diabetic shoes As directed] fluticasone furoate-vilanterol 200-25 mcg/dose (Breo Ellipta) 1 ea inhalation DAILY fluticasone propionate 50 mcg/actuation (Flonase Allergy Relief) 1 spray intranasal BID 30 days insulin degludec (Tresiba FlexTouch U-100 insulin) 40 units subcut lancets (FreeStyle Lancets) As directed check BS TID lancets (FreeStyle Lancets) Use 1 lancet three times a day lancets ([employer]Touch Delica Plus Lancet) DIRECTED THREE TIMES PER DAY losartan 100 mg PO DAILY nebulizers (Aeroneb Go Nebulizer) As directed updraft treatment Q 4 hours pen needle, diabetic (Unifine Pentips) As directed pen needle, diabetic (1st Tier Unifine Pentips) Use 1 pen needle four times a day triamcinolone acetonide 0.1% 1 appl topical BID HPI Comments Details: Daya is here for consultation regarding an abnormal stress test. She has many comorbidities including morbid obesity, diabetes, hypertension, dyslipidemia, chronic kidney disease among others. Recently underwent cardiac workup as part of preoperative evaluation for bariatric since that showed concerning findings and hence she has been referred here. She states she rides her bike on mostly flat ground about 16 miles regularly with no issues. Has never had anginal-type complaints. No documented coronary disease in the past. [facility] Medical History Carpal tunnel syndrome Left foot drop Chronic kidney disease Asthma Hypercholesterolemia Hypertension Type 2 diabetes mellitus with hyperglycemia Surgical History H/O lumbosacral spine surgery History of cholecystectomy History of section History of hysterectomy Family History Father Myocardial infarction Mother Pulmonary embolism Paternal Aunt Breast cancer Social History Housing: House Alcohol intake: never Patient Tobacco Use Status: Never used Tobacco e-Cigarette/Vaping Use: Never Used Second Hand Smoke Exposure: Yes service: No Current occupational status: employed Current occupational exposures/hazards: No Cognitive needs: No Hearing needs: No Vision needs: No Review of Systems Const Denies chills, Denies daytime sleepiness, Denies fatigue, Denies fever(s), Denies poor appetite, Denies snoring, Denies stops breathing during sleep, Denies weakness, Denies weight gain and Denies weight loss Eyes Denies loss of vision ENT Denies dizziness and Denies hearing loss Card Denies chest pain, Denies irregular heart rhythm, Denies claudication, Denies leg edema, Denies lightheadedness, Denies palpitations, Denies dyspnea on exertion and Denies orthopnea Resp Denies cough, Denies excessive phlegm production, Denies dyspnea on exertion, Denies snoring and Denies wheezing GI Denies abdominal pain, Denies hematochezia, Denies change in bowel habits, Denies nausea and Denies vomiting Denies urinary frequency and Denies dysuria Musc Denies arthralgias, Denies muscle weakness, Denies numbness and Denies other Skin/Breast Denies nail changes and Denies rash Neuro Denies Abnormal speech present, Denies dizziness, Denies loss of vision, Denies memory loss, Denies numbness and Denies weakness Psych Denies depression and Denies memory loss Endo Denies fatigue and Denies palpitations Seun/Lymph Denies easy bruising Aller/Immun Denies wheezing Physical Exam Vital Signs: Last Vital Signs Pulse 76 05/23/24 12:57 BP 140/60 H 05/23/24 12:57 BMI result Body Mass Index 35.5 Const General: comfortable and no acute distress Orientation/consciousness: patient oriented x3 HEENT Other: Unremarkable Head: Yes normal to inspection Neck Neck: Yes normal visual inspection Chest Chest palpation & inspection: normal inspection of the chest Resp Auscultation: clear to auscultation bilaterally Cardio Palpation: normal PMI Heart sounds: S1 normal heart sound present, S2 normal heart sound present, no gallops, no murmurs and no rubs GI Palpation (GI): Soft to palpation Back/Spine/Pelvis Other: unremarkable Skin General skin exam: no rashes or lesions noted Neuro General: patient oriented x3 Speech: No Abnormal speech present Extrem General: Yes normal to inspection Psych Mental Status: mental status grossly normal Assessment & Plan Assessment & Plan (1) Abnormal stress test: Code(s): R94.39 - Abnormal result of other cardiovascular function study Category: Medical (2) Type 2 diabetes mellitus with hyperglycemia: Code(s): E11.65 - Type 2 diabetes mellitus with hyperglycemia Category: Medical Qualifiers: Diabetes mellitus long line teamster insulin use: without long line teamster use Qualified Code(s): E11.65 - Type 2 diabetes mellitus with hyperglycemia (3) Hypertension: Code(s): I10 - Essential (primary) hypertension Category: Medical Qualifiers: Hypertension type: essential hypertension Qualified Code(s): I10 - Essential (primary) hypertension (4) Hypercholesterolemia: Code(s): E78.00 - Pure hypercholesterolemia, unspecified Category: Medical (5) Obesity (BMI 30-39.9): Code(s): E66.9 - Obesity, unspecified Category: Medical Plan Cardiac studies reviewed. EKG with underlying sinus rhythm at 78/Min; leftward axis; can not exclude old septal infarct; normal [place] and corrected QT. Echocardiogram with LVEF of 58%. No wall motion abnormalities and no significant valvular findings. In the perfusion imaging, described to have severe ischemia in the distal inferolateral/inferior apical wall and mild ischemia of the inferolateral/inferior wall. Overall, she has many risk factors but no anginal-type symptoms and regularly rides almost 16 miles a day. Hence unclear if the stress test findings are artifactual or not. She does have many risk factors however. In the past, apparently diabetes was poorly controlled hemoglobin A1c was almost 13 but much improved now. Recommended diagnostic cardiac catheterization for further evaluation. Discussed about this with patient she is agreeable. Otherwise, with regard to activity, avoid any form of strenuous physical exertion till catheterization is completed. May continue her usual activities otherwise. If any symptoms like angina, to seek immediate medical attention. Will follow-up after the catheterization. Orders: Orders Cardiac Cath LT Diagnostic Today I25.10 - Atherosclerotic heart disease of [place] coronary artery without angina pectoris, R94.39 - Abnormal result of other cardiovascular function study Complete Blood Count no Diff Today R94.39 - Abnormal result of other cardiovascular function study Basic Metabolic Panel Today R94.39 - Abnormal result of other cardiovascular function study Prothrombin Time INR Today I25.10 - Atherosclerotic heart disease of [place] coronary artery without angina pectoris, R94.39 - Abnormal result of other cardiovascular function study Coding Level of Care Code New Pt Level 4 (28825) Diagnoses Abnormal stress test R94.39 Type 2 diabetes mellitus with hyperglycemia, without long-term current use of insulin E11.65 Diabetes mellitus long line teamster insulin use: without long line teamster use Essential hypertension I10 Hypertension type: essential hypertension Hypercholesterolemia E78.00 Obesity (BMI 30-39.9) E66.9
== END 2024-05-23 13:45 | disposition home or self-care (01) ==
PROVIDERS: PCP Internal Medicine; Visit Provider Internal Medicine
DX: I10 Essential (primary) hypertension (principal); R94.39 Abnormal result of other cardiovascular function study; E11.65 Type 2 diabetes mellitus with hyperglycemia; E78.00 Pure hypercholesterolemia, unspecified; E66.9 Obesity, unspecified; Z68.35 Body mass index [BMI] 35.0-35.9, adult
CPT/HCPCS: 99214

== ENCOUNTER → 2024-05-23 12:27 | Outpatient (BNVA) | payer MEDICARE, SELFPAY | PROVIDERS: PCP Internal Medicine; Visit Provider Internal Medicine | DX: R94.39 Abnormal result of other cardiovascular function study (principal); I10 Essential (primary) hypertension; E78.00 Pure hypercholesterolemia, unspecified; E66.9 Obesity, unspecified; E11.65 Type 2 diabetes mellitus with hyperglycemia; Z68.35 Body mass index [BMI] 35.0-35.9, adult | CPT/HCPCS: 99212 ==

== ENCOUNTER 2024-05-26 08:38 | Outpatient (REF) | payer MEDICARE, SELFPAY ==
[2024-05-26 13:20] LABS: Hemoglobin 12.9 g/dl (12.0-16.0); Mean Corpuscular HGB Conc 33.1 g/dl (31.0-35.0); Mean Corpuscular Hemoglobin 29.6 pg (27.0-33.0); Mean Corpuscular Volume 89.4 fL (80.0-98.0); Mean Platelet Volume 10.3 fL (9.4-12.3); Platelet Count 214 X10*3/uL (160-400); Red Blood Count 4.36 X10*6/uL (4.20-5.50); Red Cell Distribution Width 12.9 % (11.0-16.0); White Blood Count 9.8 X10*3/uL (4.8-10.8)
[2024-05-26 13:30] LABS: Prothrombin Time 12.1 SEC (11.1-13.3)
[2024-05-26 13:54] LABS: Anion Gap 14 (12-20); Blood Urea Nitrogen 28 mg/dL (9-16); Carbon Dioxide 28 mmol/L (22-29); Chloride 103 mmol/L (96-108); Estimated Glomerular Filt Rate > 60; Glucose Random 116 mg/dL (60-115); Sodium 141 mmol/L (135-145); Vitamin D 25-OH Total 34.2 ng/mL (>30)
== END 2024-05-26 08:39 | disposition home or self-care (01) ==
LOC: HO.HMGCLDS 08:38
PROVIDERS: PCP Internal Medicine; Visit Provider Internal Medicine
DX: I25.10 Atherosclerotic heart disease of native coronary artery without angina pectoris (principal); R94.39 Abnormal result of other cardiovascular function study; E55.9 Vitamin D deficiency, unspecified; E83.52 Hypercalcemia
CPT/HCPCS: 36415; 80048; 82306; 85027; 85610

== ENCOUNTER 2024-05-27 14:08 | Outpatient (AMB) | payer MEDICARE, SELFPAY ==
--- NOTE | 2024-05-27 14:23 | MHC.OFFVISWM ---
VS Expanded 05/27/24 14:28 BP 141/73 H Blood Pressure Location Rt brachial Blood Pressure Position Sitting Pulse 73 Pulse Source Pulse Oximeter Temp 96.7 F L Temperature Source Tympanic Pulse Oximetry 96 Oxygen Delivery Method Room Air Height 5 ft 3 in Weight 196 lb 9.6 oz BMI 34.8 Body Fat % 36.1 Body Fat Mass 71.0 Fat Free Mass 125.4 Visceral Fat Rating 11.0 Body Water % 45.1 Body Water Mass 88.6 Muscle Mass/Score 119.0 Basal Metabolic Rate/Score 1,690 Intake Visit Reasons: (OV) F/U SWL Minister Of Religion Required: No Allergies oxycodone Allergy (Unknown, Verified 05/27/24 14:31) rash adhesive tape Adverse Reaction (Intermediate, Verified 05/27/24 14:31) Itching lisinopril Adverse Reaction (Intermediate, Verified 05/27/24 14:31) leg swelling metformin Adverse Reaction (Intermediate, Verified 05/27/24 14:31) diarrhea Medication List - Last Reconciled 05/27/24 by MAGALI Nogueira amlodipine 5 mg PO DAILY aspirin 81 mg PO DAILY atorvastatin 40 mg PO BEDTIME 90 days [AUTOPAP 5-20 cm H2O humidified AIR As directed] blood pressure monitor (Blood Pressure Kit) As directed blood sugar diagnostic (OneTouch Verio test strips) As directed Three times per day blood sugar diagnostic (OneTouch Verio test strips) As directed check blood sugars 3 times a day blood-glucose meter (OneTouch Verio Flex Start kit) As directed check blood sugars 3 times a day blood-glucose meter (OneTouch Verio Flex Meter) As directed calcium carbonate-vitamin D3 500 mg-10 mcg (400 unit) (Oyster Shell Calcium-Vitamin D3) 1 tab PO BID 90 days carbidopa-levodopa 25-100 mg 1 tab PO QID cetirizine 10 mg PO DAILY 30 days [Diabetic shoes As directed] fluticasone furoate-vilanterol 200-25 mcg/dose (Breo Ellipta) 1 ea inhalation DAILY fluticasone propionate 50 mcg/actuation (Flonase Allergy Relief) 1 spray intranasal BID 30 days insulin degludec (Tresiba FlexTouch U-100 insulin) 40 units subcut lancets (FreeStyle Lancets) As directed check BS TID lancets (FreeStyle Lancets) Use 1 lancet three times a day lancets (OneTouch Delica Plus Lancet) DIRECTED THREE TIMES PER DAY losartan 100 mg PO DAILY nebulizers (Aeroneb Go Nebulizer) As directed updraft treatment Q 4 hours pen needle, diabetic (Unifine Pentips) As directed pen needle, diabetic (1st Tier Unifine Pentips) Use 1 pen needle four times a day triamcinolone acetonide 0.1% 1 appl topical BID HPI Comments Details: Patient is a pleasant 68-year-old female who returns to the office in follow-up for surgical weight loss planning. She was initially seen in the metabolic clinic on 01/29/2024. At that time, her weight was 208.8 lb with a BMI of 37. Her weight today is 201.4 lb with a BMI of 35.7, indicating at 7.4 lb weight loss or 3.5% total body weight loss. She states that she takes long-acting length insulin, 40 units at night. Patient had decreased her insulin from 65 units to 40 units. Blood sugars have ranged between 75 and 113. She is no longer taking short-acting insulin. Cardiac workup revealed EKG with underlying sinus rhythm at 78/Min; leftward axis; can not exclude old septal infarct; normal [place] and corrected QT. Echocardiogram with LVEF of 58%. No wall motion abnormalities and no significant valvular findings. In the perfusion imaging, described to have severe ischemia in the distal inferolateral/inferior apical wall and mild ischemia of the inferolateral/inferior wall. She is set up for cardiac catheterization surgery on June 07. Meal plan: 2 CELEBRATE REBUILD protein shakes (ONE scoop EACH in 8oz low fat unsweetened almond milk each) at 8am-10am and 11am-1pm, 1 protein bar (CELEBRATE protein bars) at 2pm-4pm, dinner at 5pm (8 forks of protein and 8 forks of salad/vegetables) AND one more protein bar after dinner at 7pm-9pm. Drinking: maybe 96 oz daily Exercise plan: 16 mi outdoor bike daily, 2 hours, not tracking calories. weighted colleen luevano [facility] Medical History Carpal tunnel syndrome Left foot drop Chronic kidney disease Asthma Hypercholesterolemia Hypertension Type 2 diabetes mellitus with hyperglycemia Surgical History H/O lumbosacral spine surgery History of cholecystectomy History of section History of hysterectomy Family History Father Myocardial infarction Mother Pulmonary embolism Paternal Aunt Breast cancer Social History Housing: House Alcohol intake: never Patient Tobacco Use Status: Never used Tobacco e-Cigarette/Vaping Use: Never Used Second Hand Smoke Exposure: Yes service: No Current occupational status: employed Current occupational exposures/hazards: No Cognitive needs: No Hearing needs: No Vision needs: No Physical Exam Vital Signs: Last Vital Signs Temp 96.7 F L 05/27/24 14:28 Pulse 73 05/27/24 14:28 BP 141/73 H 05/27/24 14:28 Pulse Ox 96 05/27/24 14:28 Oxygen Delivery Method Room Air 05/27/24 14:28 BMI result Body Mass Index 34.8 Const General: healthy appearing and no acute distress Resp Effort & Inspection: normal respiratory effort Auscultation: clear to auscultation bilaterally Cardio Rate: regular rate Rhythm: regular rhythm GI Auscultation: normal bowel sounds Extrem General: Yes normal to inspection Assessment & Plan Assessment & Plan (1) Obesity (BMI 30-39.9): Code(s): E66.9 - Obesity, unspecified Category: Medical Plan: 2 CELEBRATE REBUILD protein shakes (ONE scoop in 8oz low fat unsweetened almond milk) at 8am-10am and (TWO scoops in 8 oz low-fat unsweetened almond milk) 11am-1pm, she may put 2 scoops in the 1st shake and 1 scoop in the 2nd if she wishes 1 protein bar (CELEBRATE protein bars) at 2pm-4pm, dinner at 5pm (8 forks of protein and 8 forks of salad/vegetables) AND one more protein bar after dinner at 7pm-9pm. Additionally, given the recent abnormal EKG and cardiac catheterization scheduled for 06/07/2024, we will recommend decreasing exercise to 4 days per week to avoid excess strain until test results are known. We will refer to Dr. Rogel at this point for continued preoperative care.
[2024-05-27 14:28] VITALS: BP 141/73; PULSE 73; TEMP 35.9; O2SAT 96; BMI 34.8
== END 2024-05-27 14:52 | disposition home or self-care (01) ==
PROVIDERS: PCP Internal Medicine; Visit Provider Physician Assistant Surgical
DX: E66.9 Obesity, unspecified (principal)
CPT/HCPCS: 99213

== ENCOUNTER → 2024-05-27 14:08 | Outpatient (BNVA) | payer MEDICARE, SELFPAY | PROVIDERS: PCP Internal Medicine; Visit Provider Physician Assistant Surgical | DX: E66.9 Obesity, unspecified (principal); E11.9 Type 2 diabetes mellitus without complications; Z71.3 Dietary counseling and surveillance; Z79.4 Long term (current) use of insulin; Z68.34 Body mass index [BMI] 34.0-34.9, adult | CPT/HCPCS: 99212 ==

== ENCOUNTER 2024-06-06 07:59 | Outpatient (REF) | payer MEDICARE, SELFPAY ==
--- NOTE | ~2024-06-06 | FL_ITS ---
EXAMINATION: XR FLUOROSCOPY UPPER GI WITH AIR CLINICAL INFORMATION: Preoperative evaluation prior to bariatric surgery COMPARISON: None TECHNIQUE: Fluoroscopic air contrast upper GI examination was performed utilizing standard techniques with thin and thick barium and effervescent granules. Numerous spot images were obtained. FINDINGS: Dual and single contrast images of the esophagus demonstrate normal caliber, contour, and mucosal pattern. No evidence of stricture, mass, or ulcerations identified. Esophageal peristalsis is mildly disorganized. No evidence of hiatus hernia identified. No significant gastroesophageal reflux was seen during the course of the examination and on reflux views. Surgical clips are present in the right upper quadrant. Dual contrast and single contrast images of the stomach demonstrated a normal contour. The gastric folds are mildly thickened, suggestive of gastritis. There is poor coating of the posterior lateral wall the stomach, however, there are multiple focal areas of contrast in the fundus the stomach, that may represent small superficial apthous ulcers. No masses are present. Contrast freely passed into the gastric antrum and duodenal bulb without delay. Single and air-contrast images of the duodenal bulb demonstrate no abnormality. The duodenal sweep has a normal appearance, course, and mucosal fold appearance. The imaged proximal jejunum has a normal fold pattern and caliber. There is an abnormal appearance/prominence of the ileal folds. The contrast becomes diluted throughout the ileum. There is rapid transit of the barium column with filling of the right colon within 10 minutes of the examination. FLUOROSCOPY TIME: 3 minutes 42 seconds Number of Spot Images: 8 Number of Cine: 13 DOSE AREA PRODUCT: 3577 uGy-m2 (microgray-meter squared) FL/FL upper GI w air IMPRESSION: 1. Mildly disorganized esophageal peristalsis. 2. Status post cholecystectomy. 3. Mild thickened gastric rugal folds. In addition there are multiple focal areas of contrast pooling in the fundus the stomach. These findings are suggestive of erosive gastritis. Recommend correlation with EGD. 4. Abnormal appearance/prominence of the ileal folds. The contrast becomes diluted throughout the ileum. In addition, there is rapid transit of the barium column with filling of the right colon within 10 minutes of the examination. These findings are suggestive of a malabsorption disorder. This procedure was performed by Jamie Lee PA-C, and supervised by Dr. Morgan Electronically signed by: Darren Morgan MD 06/06/2024 02:19 PM EDT
== END 2024-06-06 08:00 | disposition home or self-care (01) ==
LOC: HO.XRAY 07:59
PROVIDERS: PCP Internal Medicine; Visit Provider Surgery
DX: E66.9 Obesity, unspecified (principal); G47.33 Obstructive sleep apnea (adult) (pediatric); J45.20 Mild intermittent asthma, uncomplicated; E78.00 Pure hypercholesterolemia, unspecified; I10 Essential (primary) hypertension; E11.65 Type 2 diabetes mellitus with hyperglycemia
CPT/HCPCS: 74246

== ENCOUNTER → 2024-06-06 08:00 | Outpatient (BNV) | payer MEDICARE, SELFPAY | PROVIDERS: PCP Internal Medicine; Visit Provider Radiology Diagnostic Radiology | DX: Z01.818 Encounter for other preprocedural examination (principal); E66.9 Obesity, unspecified | CPT/HCPCS: 74246 ==

== ENCOUNTER → 2024-06-07 23:59 | Outpatient (BNV) | payer MEDICARE, SELFPAY | PROVIDERS: PCP Internal Medicine; Visit Provider Internal Medicine Cardiovascular Disease | DX: R93.1 Abnormal findings on diagnostic imaging of heart and coronary circulation (principal) | CPT/HCPCS: 93458; 93571; 99152 ==

== ENCOUNTER 2024-06-09 12:15 | Outpatient (AMB) | payer MEDICARE, SELFPAY ==
[2024-06-09 13:04] VITALS: BP 124/66; BMI 34.8
--- NOTE | 2024-06-09 13:04 | MHC.OFFVIS ---
Vital Signs 06/09/24 13:04 Height 5 ft 3 in Weight 196 lb 3.382 oz BMI 34.8 BP 124/66 Intake Visit Reasons: New patient Annual/DO NOT RS Escalator Installer Required: No Information Interpreted: non-clinical & clinical Chemical Laboratory Scientist: Chemical Laboratory Scientist Present (Tania Mcgee RIENALDO) Accompanied by: Self / Same As Patient Allergies oxycodone Allergy (Unknown, Verified 06/09/24 13:06) rash adhesive tape Adverse Reaction (Intermediate, Verified 06/09/24 13:06) Itching lisinopril Adverse Reaction (Intermediate, Verified 06/09/24 13:06) leg swelling metformin Adverse Reaction (Intermediate, Verified 06/09/24 13:06) diarrhea Post menopausal: Yes HPI Comments Details: Presenting for annual exam. No complaints. Last Pap/HPV was 4 years ago according to the patient , she is is status post hysterectomy with no known history of abnormal Pap smear Last Mammogram was BI-RADS 1 in 01/19 Last Colonoscopy was a year ago according to the patient, no records available Last DEXA scan was in 02/18 there was no evidence of osteoporosis and low FRAX risk PFSH Medical History Carpal tunnel syndrome Left foot drop Chronic kidney disease Asthma Hypercholesterolemia Hypertension Type 2 diabetes mellitus with hyperglycemia Surgical History H/O lumbosacral spine surgery History of cholecystectomy History of section History of hysterectomy Family History Father Myocardial infarction Mother Pulmonary embolism Paternal Aunt Breast cancer Social History Housing: House Alcohol intake: never Patient Tobacco Use Status: Never used Tobacco e-Cigarette/Vaping Use: Never Used Second Hand Smoke Exposure: Yes service: No Current occupational status: employed Current occupational exposures/hazards: No Cognitive needs: No Hearing needs: No Vision needs: No Female Reproductive History Menstrual Total pregnancies: 2 Full term: 2 Number of Living Children: 2 Date of Mammogram: 01/12/24 Date of last Bone Density Screenin01/28/24 Review of Systems Const All systems reviewed & are unremarkable except as noted in HPI and below Card Reports as per HPI and Reports no additional complaints Resp Reports as per HPI and Reports no additional complaints GI Reports as per HPI and Reports no additional complaints Reports as per HPI Physical Exam Vital Signs: BMI result Body Mass Index 34.8 Const General: cooperative, healthy appearing and comfortable General: Yes bladder normal to palpation External Female Exam: No lesion Speculum Exam - Vagina: normal appearance of the vagina, normal vaginal discharge and not erythematous Speculum Exam - Cervix: Cervix absent Bimanual exam- vagina & uterus: bladder normal to palpation and uterus absent Bimanual Exam- Adnexa, other: Other (No masses detected) Assessment & Plan Assessment & Plan (1) Well woman exam: Code(s): Z01.419 - Encounter for gynecological examination (general) (routine) without abnormal findings Category: Medical Plan: Vaginal Co testing done since the patient has no history of any Pap smears last for years although she is status post hysterectomy. Counseled the patient about the recommended dietary allowance of 1200 mg of Calcium & 800 IU of vitamin D. Instructions given the patient to schedule next screening Mammogram in 01/15. The patient was instructed to perform monthly self-breast exams and to schedule a 2 week DEXA scan follow-up appointment and an annual exam in a year; All questions answered and the patient verbalized understanding. Coding Level of Care Code New Pt Prev Care >65yr (64826) Diagnoses Well woman exam Z01.419
== END 2024-06-09 13:30 | disposition home or self-care (01) ==
PROVIDERS: PCP Internal Medicine; Visit Provider Obstetrics & Gynecology
DX: Z01.419 Encounter for gynecological examination (general) (routine) without abnormal findings (principal)
CPT/HCPCS: 99387

== ENCOUNTER 2024-06-09 12:15 | Outpatient (REF) | payer MEDICARE, SELFPAY ==
[2024-06-13 12:08] LABS: HPV mRNA E6/E7 Not Detected (Not Detected)
== END 2024-06-09 12:16 | disposition home or self-care (01) ==
LOC: HO.LNP 12:15
PROVIDERS: PCP Internal Medicine; Visit Provider Obstetrics & Gynecology
DX: Z01.419 Encounter for gynecological examination (general) (routine) without abnormal findings (principal); Z90.710 Acquired absence of both cervix and uterus
CPT/HCPCS: 87624; 88175

== ENCOUNTER 2024-06-21 13:23 | Outpatient (AMB) | payer MEDICARE, SELFPAY ==
[2024-06-21 13:28] VITALS: BP 116/74; PULSE 74; BMI 34.8
--- NOTE | 2024-06-21 13:28 | MHC.OFFVIS ---
Vital Signs 06/21/24 13:28 Height 5 ft 3 in Weight 196 lb 3.382 oz BMI 34.8 BP 116/74 Blood Pressure Location Lt brachial Position Sitting Pulse 74 Intake Visit Reasons: 2 wk s/p cath HS Allergies oxycodone Allergy (Unknown, Verified 06/21/24 14:11) rash adhesive tape Adverse Reaction (Intermediate, Verified 06/21/24 14:11) Itching lisinopril Adverse Reaction (Intermediate, Verified 06/21/24 14:11) leg swelling metformin Adverse Reaction (Intermediate, Verified 06/21/24 14:11) diarrhea Medication List - Last Reconciled 06/21/24 by Lottie Morgan, LEELEE amlodipine 5 mg PO DAILY aspirin 81 mg PO DAILY atorvastatin 40 mg PO BEDTIME 90 days [AUTOPAP 5-20 cm H2O humidified AIR As directed] blood pressure monitor (Blood Pressure Kit) As directed blood sugar diagnostic (OneTouch Verio test strips) As directed Three times per day blood sugar diagnostic (OneTouch Verio test strips) As directed check blood sugars 3 times a day blood-glucose meter ([employer] Verio Flex Start kit) As directed check blood sugars 3 times a day blood-glucose meter (OneTouch Verio Flex Meter) As directed calcium carbonate-vitamin D3 500 mg-10 mcg (400 unit) (Oyster Shell Calcium-Vitamin D3) 1 tab PO BID 90 days carbidopa-levodopa 25-100 mg 1 tab PO QID cetirizine 10 mg PO DAILY 30 days [Diabetic shoes As directed] fluticasone furoate-vilanterol 200-25 mcg/dose (Breo Ellipta) 1 ea inhalation DAILY fluticasone propionate 50 mcg/actuation (Flonase Allergy Relief) 1 spray intranasal BID 30 days insulin degludec (Tresiba FlexTouch U-100 insulin) 40 units subcut lancets (FreeStyle Lancets) As directed check BS TID lancets (FreeStyle Lancets) Use 1 lancet three times a day lancets ([employer] Delica Plus Lancet) DIRECTED THREE TIMES PER DAY losartan 100 mg PO DAILY nebulizers (Aeroneb Go Nebulizer) As directed updraft treatment Q 4 hours pen needle, diabetic (Unifine Pentips) As directed pen needle, diabetic (1st Tier Unifine Pentips) Use 1 pen needle four times a day triamcinolone acetonide 0.1% 1 appl topical BID HPI Comments Details: 68-year-old female presents today follow-up visit status post cardiac catheterization. She had a cardiac catheterization on 06/07/[address] Trevino. She was under going pre-operative clearance and had an abnormal stress test. She was then referred to us and we sent her for a cardiac cathereization. She was then referred to Cardiothoracic surgery for CABG. She is scheduled for that on Jun [address] Angus Cobb. Prior to this she was riding her bike 16 miles a day. She eats healthy and avoids salt, fried, and fatty foods. She does not smoke, drink alcohol, or use illicit drugs. She has multiple comorbidities including but not limited to obesity, CKD, obstructive sleep apnea, hypercholesteremia, hypertension, and type 2 diabetes. She reports compliancy with her medications. Denies any chest pains, shortness of breath, swelling, palpitations, fever, or chills. [facility] Medical History Carpal tunnel syndrome Left foot drop Chronic kidney disease Asthma Hypercholesterolemia Hypertension Type 2 diabetes mellitus with hyperglycemia Surgical History S/P cardiac catheterization H/O lumbosacral spine surgery History of cholecystectomy History of section History of hysterectomy Family History Father Myocardial infarction Mother Pulmonary embolism Paternal Aunt Breast cancer Social History Housing: House Alcohol intake: never Patient Tobacco Use Status: Never used Tobacco e-Cigarette/Vaping Use: Never Used Second Hand Smoke Exposure: Yes service: No Current occupational status: employed Current occupational exposures/hazards: No Cognitive needs: No Hearing needs: No Vision needs: No Review of Systems Const Denies chills, Denies fatigue, Denies fever(s), Denies frequent falls, Denies weakness, Denies weight gain and Denies weight loss ENT Denies dizziness Card Denies chest pain, Denies leg edema, Denies lightheadedness, Denies palpitations, Denies dyspnea, Denies dyspnea on exertion, Denies orthopnea and Denies other (loss of consciousness) Resp Denies cough, Denies dyspnea and Denies dyspnea on exertion GI Denies hematochezia and Denies change in stool character Musc Denies abnormal gait, Denies muscle weakness, Denies numbness, Denies radiating pain into limb and Denies tingling Neuro Denies abnormal gait, Denies dizziness, Denies frequent falls, Denies numbness, Denies tingling and Denies weakness Endo Denies fatigue and Denies palpitations Physical Exam Vital Signs: Last Vital Signs Pulse 74 06/21/24 13:28 BP 116/74 06/21/24 13:28 BMI result Body Mass Index 34.8 Const General: healthy appearing and no acute distress Orientation/consciousness: patient oriented x3 HEENT Head: Yes normal to inspection Eyes General: appearance normal, both eyes and all related structures Neck Neck: Yes normal visual inspection Chest Chest palpation & inspection: normal inspection of the chest Resp Effort & Inspection: normal respiratory effort Auscultation: clear to auscultation bilaterally Cardio Jugular venous distension: no JVD Palpation: normal PMI Rate: regular rate Rhythm: regular rhythm Heart sounds: S1 normal heart sound present, S2 normal heart sound present, no click, no gallops, no murmurs and no rubs GI Inspection: Yes normal to inspection Palpation (GI): Soft to palpation Skin General skin exam: no rashes or lesions noted Neuro General: patient oriented x3 Extrem Other: Right radial wrist access for catheterization. No erythema, swelling, tenderness, drainage, or odor noted. Healing appropriately. Pulses present distal and proximal to site. Capillary refill appropriate. General: Yes normal to inspection Psych Appearance: grossly normal Assessment & Plan Assessment & Plan (1) S/P cardiac catheterization: Comment: 06/07/[address] Trevino LAD: Lesion in Mid LAD: iFR +----+ + !iFR !Stage ! +----+ + !0.87!Diagnostic! +----+ + Lesion in Mid LAD: 75% stenosis . Lesion in Mid LAD: Distal subsection.60% stenosis 16 mm length. LCx: Lesion in Mid CX: 80% stenosis . RCA: Lesion in Prox RCA: 70% stenosis . Recs: CABG Code(s): Z98.890 - Other specified postprocedural states Category: Surgical (2) Hypertension: Code(s): I10 - Essential (primary) hypertension Category: Medical Qualifiers: Hypertension type: essential hypertension Qualified Code(s): I10 - Essential (primary) hypertension (3) Type 2 diabetes mellitus with hyperglycemia: Code(s): E11.65 - Type 2 diabetes mellitus with hyperglycemia Category: Medical Qualifiers: Diabetes mellitus long term care social worker insulin use: without skilled nursing use Qualified Code(s): E11.65 - Type 2 diabetes mellitus with hyperglycemia (4) Hypercholesterolemia: Code(s): E78.00 - Pure hypercholesterolemia, unspecified Category: Medical Plan Patient is going for coronary artery bypass grafting on June [address] Tevin Cobb. She is on aspirin 81 mg indefinitely. Risk-factor modification. She was already working on diabetes control, blood pressure control, weight loss, and heart healthy diet. Last A1c was 7.6 in April 2024. LDL then was 69. She is on atorvastatin, losartan, amlodipine, aspirin 81 mg. We will follow up after surgery. Diabetes is followed through primary care. Coding Level of Care Code Est Pt Level 4 (58963) Diagnoses S/P cardiac catheterization Z98.890 Essential hypertension I10 Hypertension type: essential hypertension Type 2 diabetes mellitus with hyperglycemia, without long-term current use of insulin E11.65 Diabetes mellitus skilled nursing insulin use: without long term care social worker use Hypercholesterolemia E78.00
== END 2024-06-21 14:17 | disposition home or self-care (01) ==
PROVIDERS: PCP Internal Medicine; Visit Provider Nurse Practitioner
DX: Z98.890 Other specified postprocedural states (principal); I10 Essential (primary) hypertension; E11.65 Type 2 diabetes mellitus with hyperglycemia; E78.00 Pure hypercholesterolemia, unspecified
CPT/HCPCS: 99214

== ENCOUNTER → 2024-06-21 13:23 | Outpatient (BNVA) | payer MEDICARE, SELFPAY | PROVIDERS: PCP Internal Medicine; Visit Provider Nurse Practitioner | DX: I10 Essential (primary) hypertension (principal); E11.65 Type 2 diabetes mellitus with hyperglycemia; E78.00 Pure hypercholesterolemia, unspecified; Z98.890 Other specified postprocedural states | CPT/HCPCS: 99212 ==

== ENCOUNTER 2024-08-19 14:55 | Outpatient (AMB) | payer MEDICARE, SELFPAY ==
[2024-08-19 15:04] VITALS: BP 142/82; PULSE 75; O2SAT 96
--- NOTE | 2024-08-19 15:04 | A.OFFVIS_ITS ---
Vital Signs 08/19/24 15:04 Height 53 ft Weight 185 lb BMI 0.3 BP 142/82 H Blood Pressure Location Rt brachial Position Sitting Pulse 75 Pulse Source Doppler Pulse Oximetry (%) 96 Oxygen Delivery Method Room Air Intake Visit Reasons: Obstructive sleep apnea Allergies oxycodone Allergy (Unknown, Verified 08/19/24 15:10) rash adhesive tape Adverse Reaction (Intermediate, Verified 08/19/24 15:10) Itching lisinopril Adverse Reaction (Intermediate, Verified 08/19/24 15:10) leg swelling metformin Adverse Reaction (Intermediate, Verified 08/19/24 15:10) diarrhea HPI HPI Obstructive sleep apnea: Details: 67-year-old lady, lifetime nonsmoker, followed for underlying mild to moderate persistent asthma and moderate ELAINE.? She continues to use Breo and albuterol MDI/nebs with good control of her underlying symptoms.? She denies any recent exacerbations of her underlying asthma. Patient has not been using her CPAP machine. She did have 4 vessel CABG in June of 2024. [facility] Medical History Carpal tunnel syndrome Left foot drop Chronic kidney disease Asthma Hypercholesterolemia Hypertension Type 2 diabetes mellitus with hyperglycemia Surgical History S/P cardiac catheterization H/O lumbosacral spine surgery History of cholecystectomy History of section History of hysterectomy Family History Father Myocardial infarction Mother Pulmonary embolism Paternal Aunt Breast cancer Social History Housing: House Alcohol intake: never Patient Tobacco Use Status: Never used Tobacco e-Cigarette/Vaping Use: Never Used Second Hand Smoke Exposure: Yes service: No Current occupational status: employed Current occupational exposures/hazards: No Cognitive needs: No Hearing needs: No Vision needs: No Review of Systems Const Denies daytime sleepiness, Denies excessive sweating, Denies fatigue, Denies fever(s), Denies lethargy, Denies malaise, Denies night sweats, Denies snoring and Denies weight loss Eyes Denies blurry vision and Denies itchy eyes ENT Denies nasal congestion, Denies post nasal drip, Denies sinus pain, Denies sinus pressure and Denies other ( Thrush) Card Denies chest pain, Denies pedal edema, Denies dyspnea, Denies orthopnea and Denies paroxysmal nocturnal dyspnea Resp Denies cough, Denies hemoptysis, Denies excessive phlegm production, Denies dyspnea, Denies snoring and Denies wheezing GI Denies abdominal pain and Denies heartburn Musc Denies myalgias, Denies arthralgias and Denies joint swelling Skin/Breast Denies rash Neuro Denies memory loss and Denies seizure-like activity Psych Denies abnormal sleep pattern, Denies anxiety and Denies memory loss Endo Denies excessive sweating, Denies fatigue and Denies heat intolerance Seun/Lymph Denies easy bruising Aller/Immun Denies itchy eyes, Denies seasonal rhinorrhea and Denies wheezing Physical Exam Vital Signs: Last Vital Signs Pulse 75 08/19/24 15:04 BP 142/82 H 08/19/24 15:04 Pulse Ox 96 08/19/24 15:04 Oxygen Delivery Method Room Air 08/19/24 15:04 BMI result Body Mass Index 0.3 Const General: no acute distress and alert Nutritional Appearance: not obese Orientation/consciousness: Other orientation findings ( oriented) HEENT Head: Yes atraumatic Eyes General: appearance normal, both eyes and all related structures Sclerae: sclerae normal EOM: EOMs intact bilaterally Neck Neck: Yes supple Lymphatic: no lymphadenopathy noted Resp Effort & Inspection: normal respiratory effort and no use of accessory muscles Auscultation: clear to auscultation bilaterally Cardio Rate: regular rate Rhythm: regular rhythm Heart sounds: no gallops, no murmurs and no rubs Skin General skin exam: other ( warm) Extrem General: No clubbing, No cyanosis and No edema Assessment & Plan Assessment & Plan (1) Asthma: Code(s): J45.909 - Unspecified asthma, uncomplicated Category: Medical Qualifiers: Asthma severity: mild Asthma persistence: intermittent Asthma complication type: uncomplicated Qualified Code(s): J45.20 - Mild intermittent asthma, uncomplicated Plan: Controlled on current regimen of Breo and albuterol MDI. Continue current regimen. (2) Environmental allergies: Code(s): Z91.09 - Other allergy status, other than to drugs and biological substances Category: Medical Plan: Controlled on as needed Zyrtec and Flonase. Continue current regimen. Coding Level of Care Code Est Pt Level 4 (18877) Diagnoses Mild intermittent asthma without complication J45.20 Asthma severity: mild Asthma persistence: intermittent Asthma complication type: uncomplicated Environmental allergies Z91.09
== END 2024-08-19 15:23 | disposition home or self-care (01) ==
PROVIDERS: PCP Internal Medicine; Visit Provider Internal Medicine Pulmonary Disease
DX: J45.20 Mild intermittent asthma, uncomplicated (principal); Z91.09 Other allergy status, other than to drugs and biological substances
CPT/HCPCS: 99214

== ENCOUNTER → 2024-08-19 14:55 | Outpatient (BNVA) | payer MEDICARE, SELFPAY | PROVIDERS: PCP Internal Medicine; Visit Provider Internal Medicine Pulmonary Disease | DX: J45.20 Mild intermittent asthma, uncomplicated (principal); Z91.09 Other allergy status, other than to drugs and biological substances | CPT/HCPCS: 99212 ==

== ENCOUNTER 2024-08-22 10:00 | Outpatient (RCR) | payer MEDICARE, SELFPAY ==
[2024-11-21 15:49] LABS: Glucose, Whole Blood 162 mg/dL (60-115)
== END 2024-08-24 13:49 | disposition home or self-care (01) ==
LOC: HO.CR 10:00
PROVIDERS: PCP Internal Medicine; Visit Provider Physician Assistant Surgical
DX: Z95.1 Presence of aortocoronary bypass graft (principal)
CPT/HCPCS: 93798

== ENCOUNTER 2024-09-01 12:21 | Outpatient (AMB) | payer MEDICARE, SELFPAY ==
--- NOTE | 2024-09-01 12:31 | A.OFFVIS_ITS ---
Vital Signs 09/01/24 12:32 Height 5 ft 3 in Weight 185 lb BMI 32.8 BP 134/68 Blood Pressure Location Lt brachial Position Sitting Pulse 78 Pulse Source Pulse Oximeter Intake Visit Reasons: 2 mth f/up s/p cabg Allergies oxycodone Allergy (Unknown, Verified 08/19/24 15:10) rash adhesive tape Adverse Reaction (Intermediate, Verified 08/19/24 15:10) Itching lisinopril Adverse Reaction (Intermediate, Verified 08/19/24 15:10) leg swelling metformin Adverse Reaction (Intermediate, Verified 08/19/24 15:10) diarrhea Medication List - Last Reconciled 09/01/24 by Marcus Viera MD aspirin 81 mg PO DAILY atorvastatin 40 mg PO BEDTIME 90 days [AUTOPAP 5-20 cm H2O humidified AIR As directed] blood pressure monitor (Blood Pressure Kit) As directed blood sugar diagnostic (OneTouch Verio test strips) As directed Three times per day blood sugar diagnostic (OneTouch Verio test strips) As directed check blood sugars 3 times a day blood-glucose meter (OneTouch Verio Flex Start kit) As directed check blood sugars 3 times a day blood-glucose meter (OneTouch Verio Flex Meter) As directed carbidopa-levodopa 25-100 mg 1 tab PO QID [Diabetic shoes As directed] fluticasone furoate-vilanterol 200-25 mcg/dose (Breo Ellipta) 1 ea inhalation DAILY insulin degludec (Tresiba FlexTouch U-100 insulin) 40 units subcut lancets (FreeStyle Lancets) As directed check BS TID lancets (FreeStyle Lancets) Use 1 lancet three times a day lancets (OneTouch Delica Plus Lancet) DIRECTED THREE TIMES PER DAY levetiracetam 750 mg PO BID metoprolol tartrate 25 mg PO BID nebulizers (Aeroneb Go Nebulizer) As directed updraft treatment Q 4 hours pen needle, diabetic (Unifine Pentips) As directed pen needle, diabetic (1st Tier Unifine Pentips) Use 1 pen needle four times a day tirzepatide (Mounjaro) 5 mg (0.5 mL) subcut QWEEK 4 weeks triamcinolone acetonide 0.1% 1 appl topical BID HPI Comments Details: Daya returns for follow-up. She was recently seen in consultation regarding an abnormal stress test. Many comorbidities including obesity, diabetes, hypertension, dyslipidemia, chronic kidney disease. She underwent preoperative stress testing before bariatric surgery and that was abnormal leading to a diagnostic catheterization. This showed multivessel disease leading to bypass surgery. Overall, from cardiac she did not have any major symptoms prior to bypass or currently. She states that she is doing fine. She is not able to afford cardiac rehab and hence would like to pursue her own physical activities. [facility] Medical History (Updated 09/01/24 @ 13:18 by Marcus Viera MD) Carpal tunnel syndrome Left foot drop Chronic kidney disease Asthma Hypercholesterolemia Hypertension Type 2 diabetes mellitus with hyperglycemia Surgical History (Updated 09/01/24 @ 13:18 by Marcus Viera MD) Status post aorto-coronary artery bypass graft S/P cardiac catheterization H/O lumbosacral spine surgery History of cholecystectomy History of section History of hysterectomy Family History Father Myocardial infarction Mother Pulmonary embolism Paternal Aunt Breast cancer Social History Housing: House Alcohol intake: never Patient Tobacco Use Status: Never used Tobacco e-Cigarette/Vaping Use: Never Used Second Hand Smoke Exposure: Yes service: No Current occupational status: employed Current occupational exposures/hazards: No Cognitive needs: No Hearing needs: No Vision needs: No Review of Systems Const Denies weakness ENT Denies dizziness Card Denies chest pain, Denies chest pain with activity, Denies syncope, Denies rapid heart rate, Denies pedal edema, Denies edema, Denies leg edema, Denies lightheadedness, Denies palpitations, Denies dyspnea, Denies dyspnea on exertion and Denies orthopnea Resp Denies cough, Denies dyspnea and Denies dyspnea on exertion GI Denies hematochezia and Denies change in stool character Musc Denies abnormal gait, Denies muscle cramps, Denies muscle weakness, Denies numbness, Denies radiating pain into limb and Denies tingling Neuro Denies abnormal gait, Denies dizziness, Denies syncope, Denies numbness, Denies tingling and Denies weakness Endo Denies palpitations Physical Exam Vital Signs: Last Vital Signs Pulse 78 09/01/24 12:32 BP 134/68 09/01/24 12:32 BMI result Body Mass Index 32.8 Const General: comfortable and no acute distress Orientation/consciousness: patient oriented x3 HEENT Other: Unremarkable Head: Yes normal to inspection Neck Neck: Yes normal visual inspection Chest Chest palpation & inspection: normal inspection of the chest Resp Auscultation: clear to auscultation bilaterally Cardio Palpation: normal PMI Heart sounds: S1 normal heart sound present, S2 normal heart sound present, no gallops, no murmurs and no rubs GI Palpation (GI): Soft to palpation Back/Spine/Pelvis Other: unremarkable Skin General skin exam: no rashes or lesions noted Neuro General: patient oriented x3 Extrem General: Yes normal to inspection Psych Mental Status: mental status grossly normal Assessment & Plan Assessment & Plan (1) Atherosclerotic cardiovascular disease: Code(s): I25.10 - Atherosclerotic heart disease of yocha dehe coronary artery without angina pectoris Category: Medical (2) Status post aorto-coronary artery bypass graft: Code(s): Z95.1 - Presence of aortocoronary bypass graft Category: Surgical (3) Type 2 diabetes mellitus with hyperglycemia: Code(s): E11.65 - Type 2 diabetes mellitus with hyperglycemia Category: Medical Qualifiers: Diabetes mellitus half-way insulin use: without half-way use Qualified Code(s): E11.65 - Type 2 diabetes mellitus with hyperglycemia (4) Hypertension: Code(s): I10 - Essential (primary) hypertension Category: Medical Qualifiers: Hypertension type: essential hypertension Qualified Code(s): I10 - Essential (primary) hypertension (5) Hypercholesterolemia: Code(s): E78.00 - Pure hypercholesterolemia, unspecified Category: Medical Plan In the recent cardiac catheterization, multivessel coronary artery disease. Preoperative echocardiogram showed preserved LVEF and no obvious abnormalities otherwise. Carotid ultrasound shows only mild disease bilaterally. Overall, multiple cardiovascular risk factors, multivessel coronary disease, status post CABG. Doing well. Continue aggressive risk factor modification. With regard to the original bariatric surgery planned, she states she would not pursue anymore. With regard to cardiac rehab, she states she will not be able to afford and wants to just do physical activities by herself. Advised her to be cautious and contact us with any complaints like chest pain. She understands. Orders: Orders CA echo transthoracic complete 4 Months I25.10 - Atherosclerotic heart disease of [place] de[place] coronary artery without angina pectoris Coding Level of Care Code Est Pt Level 4 (46244) Diagnoses Atherosclerotic cardiovascular disease I25.10 Status post aorto-coronary artery bypass graft Z95.1 Type 2 diabetes mellitus with hyperglycemia, without long-term current use of insulin E11.65 Diabetes mellitus termite technician insulin use: without termite technician use Essential hypertension I10 Hypertension type: essential hypertension Hypercholesterolemia E78.00
[2024-09-01 12:32] VITALS: BP 134/68; PULSE 78; BMI 32.8
== END 2024-09-01 12:53 | disposition home or self-care (01) ==
PROVIDERS: PCP Internal Medicine; Visit Provider Internal Medicine
DX: I25.10 Atherosclerotic heart disease of native coronary artery without angina pectoris (principal); Z95.1 Presence of aortocoronary bypass graft; E11.65 Type 2 diabetes mellitus with hyperglycemia; I10 Essential (primary) hypertension; E78.00 Pure hypercholesterolemia, unspecified
CPT/HCPCS: 99214

== ENCOUNTER → 2024-09-01 12:21 | Outpatient (BNVA) | payer MEDICARE, SELFPAY | PROVIDERS: PCP Internal Medicine; Visit Provider Internal Medicine | DX: I25.10 Atherosclerotic heart disease of native coronary artery without angina pectoris (principal); I12.9 Hypertensive chronic kidney disease with stage 1 through stage 4 chronic kidney disease, or unspecified chronic kidney disease; E11.22 Type 2 diabetes mellitus with diabetic chronic kidney disease; E11.65 Type 2 diabetes mellitus with hyperglycemia; E78.00 Pure hypercholesterolemia, unspecified; E78.5 Hyperlipidemia, unspecified; N18.9 Chronic kidney disease, unspecified; Z95.1 Presence of aortocoronary bypass graft | CPT/HCPCS: 99212 ==

== ENCOUNTER 2024-10-06 14:40 | Outpatient (AMB) | payer MEDICARE, SELFPAY ==
[2024-10-06 14:53] VITALS: BP 140/78; PULSE 70; O2SAT 98; BMI 34.5
--- NOTE | 2024-10-06 14:53 | A.OFFPC_ITS ---
Vital Signs 10/06/24 14:53 Height 5 ft 3 in Weight 195 lb BMI 34.5 BP 140/78 H Blood Pressure Location Lt brachial Position Sitting Pulse 70 Pulse Source Pulse Oximeter Pulse Oximetry (%) 98 Oxygen Delivery Method Room Air Intake Visit Reasons: dm, NEEDS 30 MINUTES [employer] Required: No Accompanied by: Self / Same As Patient Allergies oxycodone Allergy (Unknown, Verified 10/06/24 15:15) rash adhesive tape Adverse Reaction (Intermediate, Verified 10/06/24 15:15) Itching lisinopril Adverse Reaction (Intermediate, Verified 10/06/24 15:15) leg swelling metformin Adverse Reaction (Intermediate, Verified 10/06/24 15:15) diarrhea Medication List - Last Reconciled 10/06/24 by Precious Orourke MD aspirin 81 mg PO DAILY atorvastatin 40 mg PO BEDTIME 90 days [AUTOPAP 5-20 cm H2O humidified AIR As directed] blood pressure monitor (Blood Pressure Kit) As directed blood sugar diagnostic (OneTouch Verio test strips) As directed Three times per day blood sugar diagnostic (OneTouch Verio test strips) As directed check blood sugars 3 times a day blood-glucose meter (OneTouch Verio Flex Start kit) As directed check blood sugars 3 times a day blood-glucose meter (OneTouch Verio Flex Meter) As directed carbidopa-levodopa 25-100 mg 1 tab PO QID [Diabetic shoes As directed] fluticasone furoate-vilanterol 200-25 mcg/dose (Breo Ellipta) 1 ea inhalation DAILY insulin degludec (Tresiba FlexTouch U-100 insulin) 40 units subcut lancets (FreeStyle Lancets) As directed check BS TID lancets (FreeStyle Lancets) Use 1 lancet three times a day lancets (OneTouch Delica Plus Lancet) DIRECTED THREE TIMES PER DAY levetiracetam 750 mg PO BID metoprolol tartrate 25 mg PO BID nebulizers (Aeroneb Go Nebulizer) As directed updraft treatment Q 4 hours pen needle, diabetic (Unifine Pentips) As directed pen needle, diabetic (1st Tier Unifine Pentips) Use 1 pen needle four times a day tirzepatide (Mounjaro) 5 mg (0.5 mL) subcut QWEEK 4 weeks triamcinolone acetonide 0.1% 1 appl topical BID Tobacco use date assessed: 10/06/24 Fall risk assessment: No Falls in past year Last assessed Fall Risk: 10/06/24 Dental Screening Dental Screen Date: 10/06/24 Did you have a dental visit in the last 12 months?: Yes Did you have a dental problem in the last 6 months where you did not have access to dental care?: No Was dental information given to patient?: Patient has dentist HPI HPI Comments History of Present Illness Details The patient is a 69-year-old female presenting with concerns related to the management of Type 2 Diabetes Mellitus. She has a Hemoglobin A1c of 6.5%. She reports a history of fluctuating weight, noting a decrease from 200 pounds in April 2024 to 195 pounds currently. The patient attributes some weight fluctuations to recent surgeries, including heart surgery on June 28, where a four-vessel coronary artery bypass grafting was performed. Post-operatively, she experienced changes in bowel habits. Recently, she began experiencing diabetic medication challenges, notably with metformin, which caused severe diarrhea. Current diabetes medications include Mounjaro, with a recent increase from 5 mg to 7.5 mg to aid with weight loss and improved glycemic control. She also requires follow-up for brown skin lesions on her back, previously biopsied and suggestive of potential malignancy if not excised. Scheduled surgery to address these lesions is on November 01. Detailed diabetes management and post- surgical recovery remain priorities. She also has a history of seizures which has not had 1 in over a year. On aspirin for secondary prophylaxis of coronary artery disease. On statins for her hyperlipidemia. [facility] Medical History (Updated 10/06/24 @ 19:31 by Precious Orourke MD) Class 2 obesity with alveolar hypoventilation and body mass index (BMI) of 37.0 to 37.9 in adult Carpal tunnel syndrome Left foot drop Chronic kidney disease Asthma Hypercholesterolemia Hypertension Type 2 diabetes mellitus with hyperglycemia Surgical History (Updated 10/06/24 @ 20:07 by Precious Orourke MD) S/P CABG x 4 Status post aorto-coronary artery bypass graft S/P cardiac catheterization H/O lumbosacral spine surgery History of cholecystectomy History of section History of hysterectomy Family History Father Myocardial infarction Mother Pulmonary embolism Paternal Aunt Breast cancer Social History Housing: House Alcohol intake: never Patient Tobacco Use Status: Never used Tobacco e-Cigarette/Vaping Use: Never Used Second Hand Smoke Exposure: Yes service: No Current occupational status: employed Current occupational exposures/hazards: No Cognitive needs: No Hearing needs: No Vision needs: No Questionnaire PHQ-9 Over the last 2 weeks, how often have you been bothered by any of the following problems? 1. Little interest or pleasure in doing things: not at all 2. Feeling down, depressed, or hopeless: not at all 3. Trouble falling or staying asleep, or sleeping too much: not at all 4. Feeling tired or having little energy: not at all 5. Poor appetite or overeating: not at all 6. Feeling bad about yourself - or that you are a failure or have let yourself or your family down: not at all 7. Trouble concentrating on things, such as reading the newspaper or watching television: not at all 8. Moving or speaking so slowly that other people could have noticed. Or the opposite - being so fidgety or restless that you have been moving around a lot more than usual: not at all 9. Thoughts that you would be better off or of hurting yourself in some way: not at all Total score: 0 Depression Screening Interpretation: Negative Depression Screening Done: Yes 04458 - PHQ-9 Billing: Yes Source: Developed by Drs. Micah Daily, Gloria Kidd, Kumar Arias and colleagues, with an educational jeremy from [employer]. Thrive Questionnaire Date Thrive assessed: 10/06/24 I am a: Patient What is your living situation today?: I have a steady place to live Within the past 12 months, did the food you bought not last and you didn't have the money to get more?: Never true Within the past 12 months, did you worry whether your food would run out before you got money to buy more?: Never true Do you have trouble paying for medicines?: No Do you have trouble getting transportation to medical appointments?: No Do you have trouble paying your heating and electricity bill?: No Do you have trouble taking care of your child, family member or friend?: No Do you have trouble with day-to-day activities such as bathing, preparing meals, shopping, managing finances, etc.?: No Are you currently unemployed and looking for a job?: No Are you interested in more education?: No Currently or been in a relationship where the following occur: No concerns reported THRIVE Score: 0 AUDIT C Alcohol Use Questionnaire (AUDIT-C) 1. How often do you have a drink containing alcohol?: Never Total Score: 0 Score Reviewed/Action Taken: No ADARSH-7 AMB Questionnaire ADARSH-7 Date ADARSH - 7 assessed: 10/06/24 Feeling nervous, anxious, or on edge: 0 = Not at all Not being able to stop or control worryin = Not at all Worrying too much about different things: 0 = Not at all Trouble relaxin = Not at all Being so restless that it is hard to sit still: 0 = Not at all Becoming easily annoyed or irritable: 0 = Not at all Feeling afraid as if something awful might happen: 0 = Not at all Total ADARSH-7 score (0-4 normal; 5-9 mild; 10-14 moderate; 15-21 severe): 0 Source: Developed by Drs. Micah Daily, Gloria Kidd, Kumar Arias and colleagues, with an educational jeremy from [employer]. ADARSH-7 Assessment Billing ADARSH-7 Assessment Tool: ADARSH-7 Assessment 22071 Review of Systems Const All systems reviewed & are unremarkable except as noted in HPI and below Card Denies chest pain at rest, Denies chest pain with activity, Denies edema, Denies irregular heart rhythm, Denies claudication, Denies dyspnea, Denies dyspnea on exertion, Denies orthopnea, Denies paroxysmal nocturnal dyspnea and Denies slow heart rate Resp Denies cough, Denies dyspnea and Denies dyspnea on exertion GI Denies abdominal pain, Denies change in bowel habits, Denies excessive flatus, Denies nausea and Denies vomiting Musc Denies atrophy, Denies deformity and Denies limited range of motion Physical exam (Primary Care) Vital Signs: Last Vital Signs Pulse 70 10/06/24 14:53 BP 140/78 H 10/06/24 14:53 Pulse Ox 98 10/06/24 14:53 Oxygen Delivery Method Room Air 10/06/24 14:53 BMI result Body Mass Index 34.5 Tobacco/Smoking Status: Tobacco use Status Tobacco use date assessed 10/06/24 10/06/24 14:54 Patient Tobacco Use Status Never used Tobacco 10/06/24 14:54 e-Cigarette/Vaping Use Never Used 10/06/24 14:54 PHQ-9: PHQ-9 Score PHQ-9: Total score 0 10/06/24 16:18 Depression Screening Interpretation: Negative Thrive Assessment: Date of Thrive Assessment Date Thrive assessed 10/06/24 10/06/24 14:54 Currently or been in a relationship where the following occur: No concerns reported Resp Effort & Inspection: normal respiratory effort Auscultation: clear to auscultation bilaterally Cardio Jugular venous distension: no JVD Rate: regular rate Rhythm: regular rhythm Heart sounds: S1 normal heart sound present and S2 normal heart sound present Extrem General: Yes full ROM Office Procedures Flu Questionnaire Does the patient have a severe egg allergy?: No Results AMB Hemoglobin A1c AMB Hemoglobin A1c 6.5 % Last Edit by REINALDO Patel on 10/06/24 15:1 5 Immunizations Fluarix Triv [id number] (PF) 45 mcg (15 mcg x 3)/0.5 mL IM syringe Performing Provider: Precious Orourke MD [facility] Documented (not given) by: REINALDO Patel on 10/06/24 16:18 Reason Not Given: Not Given Results Reviewed Results Reviewed: Laboratory Last Values Hgb A1c (Clinic) 6.5 % (4.0-6.0) H 10/06/24 14:55 Coding Level of Care Code Est Pt Level 4 (76684) Complex EM visit Add On G2211 Diagnoses Seizure R56.9 Type 2 diabetes mellitus with hyperglycemia, without long-term current use of insulin E11.65 Diabetes mellitus terminal carman insulin use: without terminal carman use Hypercholesterolemia E78.00 Atherosclerotic cardiovascular disease I25.10 Additional Codes ADARSH-7 Assessment Billing - ADARSH-7 Assessment Tool: ADARSH-7 Assessment 93076 ([id number]) PHQ-9 - 68395 - PHQ-9 Billing: Yes ([id number]) Time Spent (min) 22 Assessment & Plan Assessment & Plan (1) Seizure: Comment: January 2021, FH Seizures Code(s): R56.9 - Unspecified convulsions Category: Medical (2) Type 2 diabetes mellitus with hyperglycemia: Code(s): E11.65 - Type 2 diabetes mellitus with hyperglycemia Category: Medical Qualifiers: Diabetes mellitus chcf insulin use: without terminal carman use Qualified Code(s): E11.65 - Type 2 diabetes mellitus with hyperglycemia (3) Hypercholesterolemia: Code(s): E78.00 - Pure hypercholesterolemia, unspecified Category: Medical (4) Atherosclerotic cardiovascular disease: Code(s): I25.10 - Atherosclerotic heart disease of nikolai coronary artery without angina pectoris Category: Medical Plan - Increase Mounjaro and monitor for potential side effects, including abdominal pain and gastrointestinal symptoms - Essential Hypertension to be monitored, particularly under recent stress with family losses and holiday season influences. Adjust medications as necessary. - Schedule blood work for next office visit to monitor cholesterol levels and other indicators. - Heart disease management involves continued cardiac medications including aspirin. Emphasized importance of consistent medication adherence and follow-up. - Surgery on November 01 for excision of brown lesions on the back, pending final biopsy results to determine malignancy risk. - Review all current medications for adverse reactions. Patient was informed and verbally consented to the use of an ambient scribe for clinic note documentation during this visit. I discussed with the patient the importance of returning for another visit to further evaluate the effects of increased Monjaro, and to monitor diabetes management closely. I have highlighted the potential side effects of increasing Monjaro dosage, advising the patient to contact me if adverse gastrointestinal symptoms occur. We reviewed the need for ongoing cardiac care and strict adherence to aspirin and related medications post-CABG. Regarding the skin lesions, we agreed upon November 01 for surgical removal. In light of recent family stressors, I emphasized managing blood pressure and adhering to current medication plans. Upcoming blood work is vital for ongoing health and medication evaluation. We discussed lifestyle factors and the potential improvement with increased exercise as the patient gradually recovers from heart surgery. Orders: Orders AMB Hemoglobin A1c Today Z13.9 - Encounter for screening, unspecified Lipid Panel 6 Months E78.5 - Hyperlipidemia, unspecified Comprehensive [place]. Panel Fast 6 Months R56.9 - Unspecified convulsions Microalbumin, Random (w Creat) 6 Months R80.9 - Proteinuria, unspecified Influenza [id number] Immunization Today Z23 - Encounter for immunization Medications: New tirzepatide (Mounjaro) 7.5 mg (0.5 mL) subcut QWEEK 2 mL 0RF 4 weeks E11.65 - Type 2 diabetes mellitus with hyperglycemia Discontinued tirzepatide (Mounjaro) Discontinued Reason: Patient Completed Course 5 mg (0.5 mL) subcut QWEEK 4 weeks 2 mL 0RF Patient Instructions: - Monitor symptoms and communicate any adverse effects from medication changes promptly. - Continue diabetes medication regimen, including the increased Monjaro dosage, with attention to potential side effects. - Maintain diligent blood pressure management, especially during stress- influenced times. - Prepare for back surgery on November 01, following pre-surgical instructions from care team. - Follow healthy lifestyle choices, gradually reintroducing exercise as tolerated during recovery. - Attend the next scheduled follow-up visit for blood work and additional evaluations.
--- OUTSIDE RECORDS SUMMARY | 2024-10-06 16:38 | XMS_ITS | Continuity of Care Document ---
Author Organization [facility] Tim ainket Address [address] [place] [address] [place] [address]- Care Team Providers Care Sewer Line Photo Inspector Name Role Phone Yong Orourke MD, Precious Irving Primary Care Physician Encounter [facility] Date(s): 08/08/24 - 09/07/24 [facility] [address] [place] [address] Drive [address] [place] [address]- Encounter Type: Triage Allergies, Adverse Reactions, Alerts Substance Criticality Severity Reaction Reaction Severity Status lisinopril leg swelling Active Adhesive Bandage skin irratation Active metFORMIN diarrhea Active Latex 1 Active oxyCODONE Rash Active 1patient states it makes her itchy. Immunizations Given and Recorded Vaccine Date Status Refusal Reason [id number] bivalent booster vax 1 08/07/22 Given influenza virus vaccine, inactivated 2 08/07/22 Gi andrew influenza virus vaccine, inactivated 06/09/19 Give n influenza virus vaccine, inactivated 3 07/30/18 Gi andrew influenza virus vaccine, inactivated 4 07/22/17 Gi andrew influenza virus vaccine, inactivated 07/31/16 Give n influenza virus vaccine, inactivated 5 08/01/10 Gi andrew pneumococcal 23-valent vaccine 12/21/14 Given tetanus/diphtheria/pertussis, acel(Tdap) 09/04/11 Given Influenza Inactive (IM) (oldterm) 6 09/01/11 Given Influenza Inactive (IM) (oldterm) 7 06/07/09 Given Pneumococcal Vaccine (oldterm) 8 08/01/10 Given Pneumococcal Vaccine (oldterm) 05/08/09 Given Tetanus-Diphth Toxoids, Adult (oldterm) 05/08/09 G iven 1Result Comment: NDC: 98655-278-07 2Result Comment: [facility]: 46747-126-84 3Result Comment: [07/30/2018] [id number] 4Result Comment: [facility] [id number] 5Admin Note: vis given 6Admin Note: 04/22/11 vis sheet given 7Admin Note: VIS GIVEN 8Admin Note: vis given Medications acetaminophen 325 mg oral tablet 975 mg, By Mouth, Every 6 hours, Refills 0, Maintenance, 07/04/24 4:42:00 PM EDT, Partial fill upon patient request if the prescription is for a schedule II opioid drug. Start Date: 07/04/24 Status: Ordered Repeat number: 1 amiodarone 200 mg oral tablet 200 mg, By Mouth, 2 times a day, # 48 tablet, Refills 0, Tot. Refills 0, Maintenance, 07/04/24 4:42:00 PM EDT, Route to Pharmacy Electronically, [facility], Partial fill upon patient request if the prescription is for a schedule II opioid drug., 160.02, cm, 07/04/24 16:21:00 EDT, Height, 87.7, kg, 06/28/24 6:55:00 EDT, Dry Weight Start Date: 07/04/24 Status: Ordered Quantity: 48.0 Unit: tablet Repeat number: 1 Aspirin Low Dose 81 mg oral delayed release tablet 1 tablet, By Mouth, Daily, # 90 tablet, 1 Refills, Maintenance, 08/31/23 7:53:00 AM EST, [id number], 161.2, cm, 12/05/22 16:16:00 EST, Height Start Date: 08/31/23 Status: Ordered Quantity: 90.0 Unit: tablet Repeat number: 1 atorvastatin 40 mg oral tablet 1 tablet, By Mouth, Daily, # 90 tablet, 1 Refills, Maintenance, 11/29/23 3:13:00 PM EST, [id number], 161.2, cm, 12/05/22 16:16:00 EST, Height Start Date: 11/29/23 Stop Date: 02/27/24 Status: Ordered Quantity: 90.0 Unit: tablet Repeat number: 1 Breo Ellipta 200 mcg-25 mcg/inh inhalation powder 1 puffs, Inhalation, Daily in AM, 0 Refills, Maintenance, 08/07/22 12:47:00 PM EST, Powder, Partialfill upon patient request if the prescription is for a schedule II opioid drug. Start Date: 08/07/22 Status: Ordered Repeat number: 1 fluticasone propionate Inhalation, PRN Nasal Congestion, 0 Refills, Maintenance, 06/13/24 1:37:00 PM EDT, Partial fill uponpatient request if the prescription is for a schedule II opioid drug. Start Date: 06/13/24 Status: Ordered Repeat number: 1 gabapentin 100 mg oral capsule 200 mg, By Mouth, 3 times a day, # 180 tablet, Refills 0, Tot. Refills 0, Maintenance, 07/04/24 4:43:00 PM EDT, Route to Pharmacy Electronically, [facility], Partial fill upon patient request if the prescription is for a schedule II opioid drug., 160.02, cm, 07/04/24 16:21:00 EDT, Height, 87.7, kg, 06/28/24 6:55:00 EDT, Dry Weight Start Date: 07/04/24 Status: Ordered Quantity: 180.0 Unit: tablet Repeat number: 1 levETIRAcetam 750 mg oral tablet 1 tablet = 750 mg, By Mouth, 2 times a day, # 60 tablet, 0 Refills, Maintenance, 08/07/22 12:48:00 PM EST, Tablet, Partial fill upon patient request if the prescription is for a schedule II opioid drug. Start Date: 08/07/22 Status: Ordered Quantity: 60.0 Unit: tablet Repeat number: 1 metoprolol 25 mg oral tablet 25 mg, By Mouth, 2 times a day, # 60 tablet, Refills 0, Tot. Refills 0, Maintenance, 07/04/24 4:47:00 PM EDT, Route to Pharmacy Electronically, [facility], Partial fill upon patient request if the prescription is for a schedule II opioid drug., 160.02, cm, 07/04/24 16:21:00 EDT, Height, 87.7, kg, 06/28/24 6:55:00 EDT, Dry Weight Start Date: 07/04/24 Status: Ordered Quantity: 60.0 Unit: tablet Repeat number: 1 Mounjaro 5 mg/0.5 mL subcutaneous solution = 5 mg, Subcutaneous Injection, Every Thursday, rotate injection sites, # 4 each, 0 Refills, Maintenance, 06/24/24 12:24:00 PM EDT, Solution, Partial fill upon patient request if the prescription is fora schedule II opioid drug. Start Date: 06/24/24 Status: Ordered Quantity: 4.0 Unit: each Repeat number: 1 Pen Conway, 32 G x 4 mm BD Ultra Fine III See instructions, # 200 each, Refills 5, Maintenance, use as directed for Type 1 Diabetes Mellitus,08/07/22 1:33:00 PM EST, Supply Start Date: 08/07/22 Stop Date: 09/06/22 Status: Ordered Quantity: 200.0 Unit: each Repeat number: 1 tamsulosin 0.4 mg oral capsule 0.4 mg, By Mouth, 2 times a day, # 60 capsule, Refills 0, Tot. Refills 0, Maintenance, 07/04/24 4:43:00 PM EDT, Route to Pharmacy Electronically, [facility], Partial fill upon patient request if the prescription is for a schedule II opioid drug., 160.02, cm, 07/04/24 16:21:00 EDT, Height, 87.7, kg, 06/28/24 6:55:00 EDT, Dry Weight Start Date: 07/04/24 Status: Ordered Quantity: 60.0 Unit: capsule Repeat number: 1 Tresiba FlexTouch 100 units/mL subcutaneous solution See Instructions, 65 units subq daily FINAL FILL UNTIL APPOINTMENT IS SCHEDULED, # 65 mL, 0 Refills, Maintenance, 12/21/23 7:50:00 AM EDT, Solution, [id number], Partial fill upon patient request if the prescription is for a schedule II opioid drug., 161.2, cm, 12/05/22 16:16:00 EST, Height Start Date: 12/21/23 Status: Ordered Quantity: 65.0 Unit: mL Repeat number: 1 Vashe Topical Solution 475 mL, Topically, Every 12 hours, 0 Refills, Maintenance, Solution Start Date: 07/04/24 Status: Ordered Repeat number: 1 Problem List Condition Confirmation Course Effective Dates Status Health St atus Informant Asthma Confirmed Active CKD (chronic kidney disease) Confirmed Active DIABETES MELLITUS Confirmed Active Atypical nevi Confirmed Active Foot drop, left Confirmed Active S/P CABG x 4 Confirmed Active HLD (hyperlipidemia) Confirmed Active HYPERTENSION Confirmed Active Obese class I Confirmed Active Obesity Confirmed Active Sciatica of left side Confirmed Active Seizure disorder Confirmed Active T2DM (type 2 diabetes mellitus) Confirmed Active Social History Social History Type Response Smoking Status Never smoker; Tobacc o user in household: No entered on: 12/04/16 Sex Sex Representation Female (finding) Patient Care team information Care Team Personnel Name: Mitra Clements RN Position: S RN Supv Member Role: Primary Care Nurse Name: Jocelynn Mcgraw Position: [facility] Outreach Member Role: Lifetime Consulting Physician Name: Yong Orourke MD , Precious Irving Position: Reference Physician Member Role: PCP Address: [address] [place] [address] [address] [place] [address] Telecom: Name: Fracisco Sanchez Position: S Outreach Member Role: Lifetime Consulting Physician Name: Monica Reyes RN Position: S RN Member Role: Primary Care Nurse Care Team Related Persons Name: TERRANCE RAHMAN Insurance Providers Guarantor name: MARIA EUGENIA RAHMAN [facility] Information #: 1 Payer: NA Member Number: NA Policy Number: NA Group Number: NA
== END 2024-10-06 15:31 | disposition home or self-care (01) ==
PROVIDERS: PCP Internal Medicine; Visit Provider Internal Medicine
DX: R56.9 Unspecified convulsions (principal); E11.65 Type 2 diabetes mellitus with hyperglycemia; E78.00 Pure hypercholesterolemia, unspecified; I25.10 Atherosclerotic heart disease of native coronary artery without angina pectoris; Z23 Encounter for immunization; Z13.9 Encounter for screening, unspecified

== ENCOUNTER → 2024-10-06 14:40 | Outpatient (BNVA) | payer MEDICARE, SELFPAY | PROVIDERS: PCP Internal Medicine; Visit Provider Internal Medicine | DX: E11.65 Type 2 diabetes mellitus with hyperglycemia (principal); E78.00 Pure hypercholesterolemia, unspecified; I25.10 Atherosclerotic heart disease of native coronary artery without angina pectoris; R56.9 Unspecified convulsions; R80.9 Proteinuria, unspecified | CPT/HCPCS: 83036; 90471; 96127; 99212 ==

== ENCOUNTER → 2024-12-06 13:31 | Outpatient (REF) | payer OTHER, SELFPAY ==
--- NOTE | 2024-12-06 13:34 | CA_ITS ---
Transthoracic Echocardiogram Patient (Last, First, Middle): Daya Bobo, Gender: Female Date of : 1955 Age: 69 Procedure Date: 12/06/2024 Procedure Type: Transthoracic Echocardiogram Location: OP Height: 160.02 cm Weight: 83.01 kg BSA: 1.86 m2 Heart Rate: bpm BP: 178 / 94 mmHg Birthing Nurse: TO Referring MD: Marcus Viera MD Symptoms: I25.10 - Atherosclerotic heart disease of [place] coronary artery without... Study Quality: Fair/Contrast ECG Rhythm: Sinus Conclusions: - The left ventricular systolic function is low normal. The visually estimated ejection fraction is between 50-55%. - No obvious valvular pathology seen on this study. - There is mild dilatation of the sinuses of Valsalva measuring 4.12 cm and mild dilatation of the ascending aorta measuring 3.90 cm. Findings Procedure Information Contrast agent, definity, is being given per protocol without apparent complications. Left Ventricle Normal left ventricular cavity size. The left ventricular systolic function is low normal. The visually estimated ejection fraction is between 50-55%. Evidence suggests grade I (mild) diastolic dysfunction. There is mild septal asymmetric hypertrophy. Wall motion abnormalities difficult to assess even with contrast. No overt findings. Right Ventricle Normal right ventricular cavity size. There is mildly decreased right ventricular systolic function. Atria The left atrium is mildly dilated. The right atrium is normal in size. Aortic Valve There is a normal trileaflet aortic valve. There is no aortic valve stenosis. There is no aortic valve regurgitation. Mitral Valve The mitral valve appears normal. There is no mitral valve regurgitation. There is no mitral valve stenosis. Pulmonic Valve The pulmonic valve is likely normal. Tricuspid Valve Normal tricuspid valve structure. There is no tricuspid valve regurgitation. Tricuspid regurgitation envelope is inadequate for calculation of right ventricular systolic pressure. Great Vessels There is mild dilatation of the sinuses of Valsalva measuring 4.12 cm and mild dilatation of the ascending aorta measuring 3.90 cm. Venous The inferior vena cava is normal in size and collapses greater than 50% with inspiration. Pericardium/Pleural There is a trivial pericardial effusion. Prior Study Comparison No significant change compared to prior study dated: 04/20/2024. Recommendations, Care & Conclusions No obvious valvular pathology seen on this study. Measurements 2D Linear Measurements IVSd: 1.28 0.6-0.9/0.6-1.0 cm LVIDd: 5.07 3.9-5.3/4.2-5.9 cm LVIDd Index: 2.73 2.4-3.2/2.2-3.1 cm/m2 LVIDs: 3.38 2.0-3.6 cm LVPWd: 1.00 0.7-1.1 cm LA Diam: 3.90 2.7-3.8/3.0-4.0 cm LAIDs Index: 2.10 1.5-2.3 cm/m2 LV Mass: 276.91 67-162/88-224 g LV Mass Index: 148.87 43-95/49-115 g/m2 LVOT Diam: 2.10 3.0+(-)1.3 cm 2D Systolic Function EF 4C: 53.00 >55% EF 2C: 45.80 >55% EF BiP: 48.50 >55% Mitral Valve MV Pk E: 0.43 MV PK A: 0.95 MV Decel Time: 143.00 E/A: 0.50 E'Lateral: 4.24 E'Medial: 3.70 E/E' Med: 11.70 E/E' Lat: 10.20 PHT: 42.00 MVA PHT: 5.24 Decel Carroll: 3.03 Aortic Valve AoV Pk Low: 1.02 AoV Mn Low: 0.70 AoV VTI: 0.21 AoV Pk Grad: 4.00 Aov Mn Grad: 2.00 ELENA Cont.VTI: 2.23 LVOT LVOT Pk Low: 0.61 LVOT Mn Low: 0.42 LVOT VTI: 0.13 LVOT Pk Grad: 2.00 LVOT Mn Grad: 1.00 LVOT Diam: 2.10 LVOT Area: 3.46 Diastolic Function MV Pk E: 0.43 MV Pk A: 0.95 E/A: 0.50 E'Medial: 3.70 E/E' Med: 11.70 E' Laterial: 4.24 E/E' Lat: 10.20 Right Ventricle TAPSE (mm): 13.40 TVS' Low: 6.80 Tricuspid Valve RA Press: 3.00 Great Vessels Aorta Sinus of Valsalva: 4.12 2.0-3.[address] Ridge: 2.80 1.7-3.4 cm Ao Asc: 3.90 2.1-3.4 cm Updated in Other Vendor System with Status of Final Marcus Viera MD electronically signed on 12/07/2024 9:46:18 AM with status of Final
--- OUTSIDE RECORDS SUMMARY | 2024-12-06 16:21 | XMS_ITS | Encounter Summary ---
Author Organization [facility] Address [address] [place] [address] Care Team Providers Care Manufacturing Job Titles Name Role Phone Precious Orourke MD Primary Care Provider [phone] Encounter Details Date Type Department Care Team (Late st Contact Info) Description 11/01/2024 Lab Requisition [facility] - Main Lab [address] [facility] [place] [address] Sameera Cadet III, MD [address] [place] [address] [place] [address] Disorder of pigmentation, unspecified Social History Tobacco Use Types Packs/Day Years Used Date Smoking Tobacco: Never Smokeless Tobacco: Never Alcohol Use Standard Drinks/Week Comments No 0 (1 standard drink = 0.6 oz pur e alcohol) Comments Unknown Sex and Gender Information Value Date Recorded Sex Assigned at Not on file Legal Sex Female 10:12 PM EST Gender Identity Not on file Sexual Orientation Not on file documented as of this encounter Plan of Treatment Not on file documented as of this encounter Procedures Procedure Name Priority Date/Time Associated Diagnosis Comments TISSUE EXAM Routine 11/01/2024 Disorder of pigmentation, unspecified documented in this encounter Results * Tissue Exam (11/01/2024) Final Diagnosis Skin, Back, Upper, excision: -CICATRIX, CONSISTENT WITH BIOPSY SITE SCAR -Negative for residual atypical lesion 11/02/2024 2:10 PM EST [facility] Clinical Information Atypical back skin lesion, short stitch superior, long lateral per jar 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 Back, Upper, excision: Labeled atypical back skin lesion short stitch superior, long lateral . Received in formalin is a 3.9 x 1.5 cm oriented guajardo-white skin ellipse excised to depth of 1.1 cm. There is a short suture on one edge designating superior, and a long suture on one tip designating lateral per the requisition. The epidermis displays a 0.8 x 0.8 cm ill-defined pink-white faint scar, located 0.2 cm from the superior margin. The superior margin is inked blue, inferior black, epidermis of lateral tip green. The specimen is sectioned in a cruciate manner. Lymphedema Therapist sections, to include the entirety of the scar, are submitted as follows: 1, cruciate medial and lateral tips (lateral epidermis inked green), two pieces 2-4, sequential transverse cross-sections from lateral to medial to include the entirety of the scar, two pieces each BART 11/02/2024 2:10 PM [facility] Disclaimer Unless otherwise specified, all tissue is 10% NB formalin fixed and paraffin embedded. 11/02/2024 2:10 PM [facility] Tissue Upper back structure / Unknown 11/01/2024 11/01/2024 3:20 PM EST us Sameera Cadet III, MD LAB PATHOLOGY ORDERABLES Fi nal Result [facility] [address] [place] [address], documented in this encounter Visit Diagnoses Diagnosis Disorder of pigmentation, unspecified documented in this encounter Care Teams Manufacturing Job Titles Relationship Specialty Start Date End Date Precious Orourke MD [address] [facility] , [address] [facility] D/B/A: [facility] [place], [place] PCP - General 03/25/24 documented as of this encounter
--- OUTSIDE RECORDS SUMMARY | 2024-12-06 16:21 | XMS_ITS | Clinical Summary ---
Author Organization [address] [facility] Address [address] [place] [address] Phone Care Team Providers Care Services Tech Name Role Phone Precious Orourke MD Primary Care Provider [phone] Allergies No known active allergies Encounters Date Type Department Care Team Description 11/01/2024 Lab Requisition [facility] - Main Lab [address] [facility] [place] [address] Sameera Cadet III, MD Disorder of pigmentation, unspecified from Last 3 Months Surgical History Surgery Date Site/Laterality Comments SECTION PROCEDURE: HISTORICAL ; COMMENT: x1 CHOLECYSTECTOMY PROCEDURE: RI CHOLECYSTECTOMY BACK SURGERY PROCEDURE: HISTORICAL BACK SURGERY PARTIAL HYSTERECTOMY PROCEDURE: RI SUPRACERVICAL ABDL HYSTER W/WO RMVL TUBE OVARY COLONOSCOPY 2012 PROCEDURE: RI COLONOSCOPY FLX DX W/COLLJ SPEC WHEN PFRMD; COMMENT: normal Family History Medical History Relation Name Comments Diabetes Father Hypertension Mother Relation Name Status Comments Father dm, [place] Mother htn at early ag e, smoker Social History Tobacco Use Types Packs/Day Years Used Date Smoking Tobacco: Never Smokeless Tobacco: Never Alcohol Use Standard Drinks/Week Comments No 0 (1 standard drink = 0.6 oz pur e alcohol) Comments Unknown Sex and Gender Information Value Date Recorded Sex Assigned at Not on file Legal Sex Female 10:12 PM EST Gender Identity Not on file Sexual Orientation Not on file Obstetrics History Last Filed Vital Signs Vital Sign Reading Time Taken Comments Blood Pressure - - Pulse - - Temperature - - Respiratory Rate - - Oxygen Saturation - - Inhaled Oxygen Concentration - - Weight 90.7 kg (200 lb) 06/22/2024 1:49 PM EDT Height - - Body Mass Index - - Plan of Treatment Health Maintenance Due Date Last Done Comments Breast Cancer Screening 1955 DTaP,Tdap,and Td Vaccines (1 - Tdap) 1974 Pneumococcal Vaccine: 50+ Ye ars (1 of 2 - PCV) 1974 Zoster Vaccines (1 of 2) 2005 COVID-19 Vaccine (1 - 2023-2 5 season) 2024 Influenza Vaccine (#1) 2024 Colorectal Cancer Screening: Colonoscopy 07/13/2024 Depression Screening 07/13/2024 Falls Risk Assessment 07/13/2024 Hepatitis C Screening 07/13/2024 Osteoporosis Screening (Bone Density Screening) 07/13/2024 Social Influencers of Health Screening 07/13/2024 RSV Immunization Patients 60 + Years Old (1 - 1-dose 75+ series) 2030 HIB Vaccines Aged Out No longer eligi ble based on patient's age to complete this topic HPV Vaccines Aged Out No longer eligi ble based on patient's age to complete this topic Hepatitis A Vaccines Aged Out No long er eligible based on patient's age to complete this topic Hepatitis B Vaccines Aged Out No long er eligible based on patient's age to complete this topic IPV Vaccines Aged Out No longer eligi ble based on patient's age to complete this topic MMR Vaccines Aged Out No longer eligi ble based on patient's age to complete this topic Meningococcal ACWY Vaccine Aged Out N o longer eligible based on patient's age to complete this topic Meningococcal B Vacine Aged Out No lo nger eligible based on patient's age to complete this topic RSV Immunization Patients Un jeniffer 20 months Aged Out No longer eligible b ased on patient's age to complete this topic Varicella Vaccines Aged Out No longer eligible based on patient's age to complete this topic Procedures Procedure Name Priority Date/Time Associated Diagnosis Comments TISSUE EXAM Routine 11/01/2024 Disorder of pigmentation, unspecified from Last 3 Months Results * Tissue Exam (11/01/2024) Final Diagnosis Skin, Back, Upper, excision: -CICATRIX, CONSISTENT WITH BIOPSY SITE SCAR -Negative for residual atypical lesion 11/02/2024 2:10 PM EST [email or web address] Clinical Information Atypical back skin lesion, short stitch superior, long lateral per jar 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 Back, Upper, [...] specimen is sectioned in a cruciate manner. Chemical Processing Technician sections, to include the entirety of the scar, are submitted as follows: 1, cruciate medial and lateral tips (lateral epidermis inked green), two pieces 2-4, sequential transverse cross-sections from lateral to medial to include the entirety of the scar, two pieces each BART 11/02/2024 2:10 PM EST [facility] Disclaimer Unless otherwise specified, all tissue is 10% NB formalin fixed and paraffin embedded. 11/02/2024 2:[address] [facility] Tissue Upper back structure / Unknown 11/01/2024 11/01/2024 3:20 PM EST Sameera Cadet III, MD LAB PATHOLOGY ORDERABLES Fi nal Result [facility] [address] [place] [address], from Last 3 Months Insurance [employer] Care Teams Services Tech Relationship Specialty Start Date End Date Precious Orourke MD 2 [facility] , [address] [place] [address] Physician Associ D/B/A: [facility] CLAUS Grey PCP - General 03/25/24
--- OUTSIDE RECORDS SUMMARY | 2024-12-06 16:21 | XMS_ITS | Patient Health Record ---
Author Organization [facility] Address [address] [facility] [place] [address] Care Team Providers Care Boiler Setter Name Role Phone Stephanie Neri Unavailable [phone] Allergies Allergen (clinical drug ingredient) Drug/Non Drug Allergy documented on EMR Reaction Allergy Type Onset Date Status oxycodone Oxycodone rash Drug Allergy Active Reason For Referral No Information Medications Medication SIG (Take, Route, Frequency, Duration) Notes [...] Once a day for 30 day(s) Active Immunizations Vaccine Route Administration Date Status Comme nts COVID-19 Pfizer BioNTech Vaccine Unknown 01/18/2022 Administered 1st 02/05/21 2nd 02/26/21 3rd 06/10/21 Influenza Unknown 07/20/2020 Administered Influenza Unknown 07/12/2021 Administered Social History Tobacco Use: Social History Observation Description Date Details (start date - stop date) Never Smoker NA - NA Tobacco Use/Smoking Question Answer Notes Are you a: nonsmoker Additional Findings: Tobacco Non-User Aggressive non-smoker Alcohol Screen Question Answer Notes Did you have a drink containing alcohol in the p ast year? No Points 0 Interpretation Negative Tobacco use other than smoking: Question Answer Notes Are you an other tobacco user? No Problems Problem Type SNOMED Code ICD Code Onset Dates Problem Status W/U Status Risk Notes Problem [id number] Hammer toe of le ft foot (M20.42) Active confirmed Problem 83764882 Type 2 diabetes mellitus with polyneuropathy (E11.42) Active confirmed Plan Of Treatment No Information Insurance Providers Payer Name Payer Address Payer Phone Subscriber Number Group Number Insured Name Patient Relationship to Insured Coverage Start Date Coverage End Date [employer] [address] [place] [address] [id number] Daya Bobo Self - patient is the insured Medical (General) History Medical History History ICD Code type II diabetes High blood pressure Kidney disease Epilepsy Surgical History Surgery Date(Month/Year) spine surgery left leg surgery upper thigh - Sciatica gall bladder Hospitalization History Reason Date(Month/Year) [facility] 01/23/21
== END ==
LOC: HO.CARD 13:31
PROVIDERS: PCP Internal Medicine; Visit Provider Internal Medicine
DX: I25.10 Atherosclerotic heart disease of native coronary artery without angina pectoris (principal)
CPT/HCPCS: 93306; Q9957

== ENCOUNTER → 2024-12-06 13:34 | Outpatient (BNV) | payer OTHER, SELFPAY | PROVIDERS: PCP Internal Medicine; Visit Provider Internal Medicine | DX: I31.39 Other pericardial effusion (noninflammatory) (principal); I25.10 Atherosclerotic heart disease of native coronary artery without angina pectoris | CPT/HCPCS: 93306 ==

== ENCOUNTER 2024-12-27 13:08 | Outpatient (AMB) | payer OTHER, SELFPAY ==
--- NOTE | 2024-12-27 13:17 | MHC.OFFVIS ---
Vital Signs 12/27/24 13:18 Height 5 ft 3 in Weight 180 lb BMI 31.9 BMI Reason not done Patient refused/unable BP 138/80 Blood Pressure Location Lt brachial Position Sitting Pulse 78 Pulse Source Pulse Oximeter Intake Visit Reasons: 3-4 month f/u r/s fr 12/14 Allergies oxycodone Allergy (Unknown, Verified 10/06/24 15:15) rash adhesive tape Adverse Reaction (Intermediate, Verified 10/06/24 15:15) Itching lisinopril Adverse Reaction (Intermediate, Verified 10/06/24 15:15) leg swelling metformin Adverse Reaction (Intermediate, Verified 10/06/24 15:15) diarrhea Medication List - Last Reconciled 12/27/24 by Marcus Viera MD aspirin 81 mg PO DAILY atorvastatin 40 mg PO BEDTIME 90 days [AUTOPAP 5-20 cm H2O humidified AIR As directed] blood pressure monitor (Blood Pressure Kit) As directed blood sugar diagnostic (OneTouch Verio test strips) As directed Three times per day blood sugar diagnostic (OneTouch Verio test strips) As directed check blood sugars 3 times a day blood-glucose meter (OnedeltaDNAuch Verio Flex Start kit) As directed check blood sugars 3 times a day blood-glucose meter (OnedeltaDNAuch Verio Flex Meter) As directed carbidopa-levodopa 25-100 mg 1 tab PO QID [Diabetic shoes As directed] fluticasone furoate-vilanterol 200-25 mcg/dose (Breo Ellipta) 1 ea inhalation DAILY insulin degludec (Tresiba FlexTouch U-100 insulin) 45 units (0.45 mL) subcut Q24H 30 days insulin syringe-needle U-100 (BD Insulin Syringe Ultra-Fine) Use 1 needle TID lancets (FreeStyle Lancets) As directed check BS TID lancets (FreeStyle Lancets) Use 1 lancet three times a day lancets ([employer] Delica Plus Lancet) DIRECTED THREE TIMES PER DAY levetiracetam 750 mg PO BID metoprolol tartrate 25 mg PO BID nebulizers (Aeroneb Go Nebulizer) As directed updraft treatment Q 4 hours pen needle, diabetic (Unifine Pentips) As directed pen needle, diabetic (1st Tier Unifine Pentips) Use 1 pen needle four times a day tirzepatide (Mounjaro) 7.5 mg (0.5 mL) subcut QWEEK 4 weeks HPI Comments Details: Daya returns for follow-up. To recall, she was seen in consultation initially for an abnormal stress test. She had undergone preoperative stress testing before bariatric surgery and that was abnormal and leading to diagnostic catheterization. This showed multivessel disease and she had bypass surgery. Many comorbidities including obesity, diabetes, hypertension, dyslipidemia, chronic kidney disease. Since last seen, she states she is feeling good. No cardiac symptoms. [facility] Medical History (Updated 10/06/24 @ 19:31 by Precious Orourke MD) Class 2 obesity with alveolar hypoventilation and body mass index (BMI) of 37.0 to 37.9 in adult Carpal tunnel syndrome Left foot drop Chronic kidney disease Asthma Hypercholesterolemia Hypertension Type 2 diabetes mellitus with hyperglycemia Surgical History (Updated 10/06/24 @ 20:07 by Precious Orourke MD) S/P CABG x 4 Status post aorto-coronary artery bypass graft S/P cardiac catheterization H/O lumbosacral spine surgery History of cholecystectomy History of section History of hysterectomy Family History Father Myocardial infarction Mother Pulmonary embolism Paternal Aunt Breast cancer Social History Housing: House Alcohol intake: never Patient Tobacco Use Status: Never used Tobacco e-Cigarette/Vaping Use: Never Used Second Hand Smoke Exposure: Yes service: No Current occupational status: employed Current occupational exposures/hazards: No Cognitive needs: No Hearing needs: No Vision needs: No Review of Systems Const Denies weakness ENT Denies dizziness Card Denies chest pain, Denies chest pain with activity, Denies syncope, Denies rapid heart rate, Denies pedal edema, Denies edema, Denies leg edema, Denies lightheadedness, Denies palpitations, Denies dyspnea, Denies dyspnea on exertion and Denies orthopnea Resp Denies cough, Denies dyspnea and Denies dyspnea on exertion GI Denies hematochezia and Denies change in stool character Musc Denies abnormal gait, Denies muscle cramps, Denies muscle weakness, Denies numbness, Denies radiating pain into limb and Denies tingling Neuro Denies abnormal gait, Denies dizziness, Denies syncope, Denies numbness, Denies tingling and Denies weakness Endo Denies palpitations Physical Exam Vital Signs: Last Vital Signs Pulse 78 12/27/24 13:18 BP 138/80 12/27/24 13:18 BMI result Body Mass Index 31.9 Const General: comfortable and no acute distress Orientation/consciousness: patient oriented x3 HEENT Other: Unremarkable Head: Yes normal to inspection Neck Neck: Yes normal visual inspection Chest Chest palpation & inspection: normal inspection of the chest Resp Auscultation: clear to auscultation bilaterally Cardio Palpation: normal PMI Heart sounds: S1 normal heart sound present, S2 normal heart sound present, no gallops, no murmurs and no rubs GI Palpation (GI): Soft to palpation Back/Spine/Pelvis Other: unremarkable Skin General skin exam: no rashes or lesions noted Neuro General: patient oriented x3 Extrem General: Yes normal to inspection Psych Mental Status: mental status grossly normal Assessment & Plan Assessment & Plan (1) Atherosclerotic cardiovascular disease: Code(s): I25.10 - Atherosclerotic heart disease of [place] coronary artery without angina pectoris Category: Medical (2) Status post aorto-coronary artery bypass graft: Code(s): Z95.1 - Presence of aortocoronary bypass graft Category: Surgical (3) Type 2 diabetes mellitus with hyperglycemia: Code(s): E11.65 - Type 2 diabetes mellitus with hyperglycemia Category: Medical Qualifiers: Diabetes mellitus long term care phlebotomist insulin use: without long term care phlebotomist use Qualified Code(s): E11.65 - Type 2 diabetes mellitus with hyperglycemia (4) Hypertension: Code(s): I10 - Essential (primary) hypertension Category: Medical Qualifiers: Hypertension type: essential hypertension Qualified Code(s): I10 - Essential (primary) hypertension (5) Hypercholesterolemia: Code(s): E78.00 - Pure hypercholesterolemia, unspecified Category: Medical Plan Cardiac studies reviewed. In the cardiac catheterization, multivessel coronary artery disease. Preoperative echocardiogram showed preserved LVEF and no obvious abnormalities otherwise. In the recent study postop, LVEF is 50-55%. Sinus of Valsalva measured at 4.1 cm and ascending aorta 3.9 cm. Carotid ultrasound shows only mild disease bilaterally. Overall, multiple cardiovascular risk factors, multivessel coronary disease, status post CABG. Clinically, she is asymptomatic. Continue aggressive risk factor modification. Aspirin, beta-blockers, high-dose statins, aggressive management of diabetes. Recent hemoglobin A1c is 6.5%. LDL 69 mg/dL. Triglycerides 98 mg/dL. With regard to the original bariatric surgery planned, she states she would not pursue anymore. We will see her back in follow-up in one year. In the interim, she will call us with any ongoing concerns or seek emergency care as needed. Coding Level of Care Code Est Pt Level 4 (97494) Complex EM visit Add On G2211 Diagnoses Atherosclerotic cardiovascular disease I25.10 Status post aorto-coronary artery bypass graft Z95.1 Type 2 diabetes mellitus with hyperglycemia, without long-term current use of insulin E11.65 Diabetes mellitus long term care phlebotomist insulin use: without long term care phlebotomist use Essential hypertension I10 Hypertension type: essential hypertension Hypercholesterolemia E78.00
[2024-12-27 13:18] VITALS: BP 138/80; PULSE 78; BMI 31.9
--- OUTSIDE RECORDS SUMMARY | 2024-12-27 15:25 | XMS_ITS | Patient Health Record ---
Author Organization [facility] Address [address] [place] [address] Care Team Providers Care Practicing Md Anesthesiologist Name Role Phone Stephanie Neri Unavailable [phone] Allergies Allergen (clinical drug ingredient) Drug/Non Drug [...] Problem Status W/U Status Risk Notes Problem [id number] Hammer toe of le ft foot (M20.42) Active confirmed Problem [id number] Type 2 diabetes mellitus with polyneuropathy (E11.42) Active confirmed Plan Of Treatment No Information Insurance Providers Payer Name Payer Address Payer Phone Subscriber Number Group Number Insured Name Patient Relationship to Insured Coverage Start Date Coverage End Date [employer] [address] [place] [phone] [id number] Daya Bobo Self - patient is the insured Medical (General) History Medical History History ICD Code type II diabetes High blood pressure Kidney disease Epilepsy Surgical History Surgery Date(Month/Year) spine surgery left leg surgery upper thigh - Sciatica gall bladder Hospitalization History Reason Date(Month/Year) [facility]- seizure 01/23/21
--- OUTSIDE RECORDS SUMMARY | 2024-12-27 15:25 | XMS_ITS | Encounter Summary ---
Author Organization [facility] Address [address] [place] [address] Care Team Providers Care Director Of Securities And Real Estate Name Role Phone Precious Orourke MD Primary Care Provider [phone] Encounter Details Date Type Department Care Team (Late st Contact Info) Description 11/01/2024 Lab Requisition [facility] - Main Lab [address] [facility] [employer] [place] [address] Sameera Cadet III, MD [address] [place] [address] [place] [address] Disorder of pigmentation, unspecified Social [...] residual atypical lesion 11/02/2024 2:10 PM EST [facility] Clinical Information Atypical back skin lesion, short stitch superior, long lateral per jar 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 Back, Upper, [...] specimen is sectioned in a cruciate manner. Cleater sections, to include the entirety of the scar, are submitted as follows: 1, cruciate medial and lateral tips (lateral epidermis inked green), two pieces 2-4, sequential transverse cross-sections from lateral to medial to include the entirety of the scar, two pieces each BART 11/02/2024 2:10 PM [facility] Disclaimer Unless otherwise specified, all tissue is 10% NB formalin fixed and paraffin embedded. 11/02/2024 2:10 PM [facility] Tissue Upper back structure / Unknown 11/01/2024 11/01/2024 3:20 PM EST us Sameera Cadet III, MD LAB PATHOLOGY ORDERABLES Fi nal Result [facility] [address] [place] [address], documented in this encounter Visit Diagnoses Diagnosis Disorder of pigmentation, unspecified documented in this encounter Care Teams Director Of Securities And Real Estate Relationship Specialty Start Date End Date Precious Ororuke MD [address] [facility] , [address] [facility] D[facility] [place], [place] PCP - General 03/25/24 documented as of this encounter
--- OUTSIDE RECORDS SUMMARY | 2024-12-27 15:25 | XMS_ITS | Clinical Summary ---
Author Organization [facility] Address [address] [place] [address] Phone Care Team Providers Care Professional Soccer Player Name Role Phone Precious Orourke MD Primary Care Provider [phone] Allergies No known active allergies Encounters Date Type Department Care Team Description 11/01/[address] [facility] - Main Lab [address] [facility] [place] [employer] [place] [address] Sameera Cadet III, MD Disorder of pigmentation, unspecified from Last 3 Months Surgical History Surgery Date Site/Laterality Comments SECTION PROCEDURE: HISTORICAL ; COMMENT: x1 CHOLECYSTECTOMY PROCEDURE: MN CHOLECYSTECTOMY BACK SURGERY PROCEDURE: HISTORICAL BACK SURGERY PARTIAL HYSTERECTOMY PROCEDURE: MN SUPRACERVICAL ABDL HYSTER W/WO RMVL TUBE OVARY COLONOSCOPY 2012 PROCEDURE: MN COLONOSCOPY FLX DX W/COLLJ SPEC WHEN PFRMD; COMMENT: normal Family History Medical History Relation Name Comments Diabetes Father Hypertension Mother Relation Name Status Comments Father dm, [place] Mother htn at early ag e, smoker [...] residual atypical lesion 11/02/2024 2:10 PM EST [facility] Clinical Information Atypical back skin lesion, short stitch superior, long lateral per jar 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 Back, Upper, [...] specimen is sectioned in a cruciate manner. Nursing Service Administrator sections, to include the entirety of the scar, are submitted as follows: 1, cruciate medial and lateral tips (lateral epidermis inked green), two pieces 2-4, sequential transverse cross-sections from lateral to medial to include the entirety of the scar, two pieces each BART 11/02/2024 2:10 PM EST [facility] Disclaimer Unless otherwise specified, all tissue is 10% NB formalin fixed and paraffin embedded. 11/02/2024 2:10 PM [facility] Tissue Upper back structure / Unknown 11/01/2024 11/01/2024 3:20 PM EST Sameera Cadet III, MD LAB PATHOLOGY ORDERABLES Fi nal Result [facility] [address] [place] [address], from Last 3 Months Insurance [employer] Care Teams Professional Soccer Player Relationship Specialty Start Date End Date Precious Orourke MD [address] [facility] , [address] [place] [address] Physician Associ D/B/A[facility]US Grey PCP - General 03/25/24
== END 2024-12-27 13:40 | disposition home or self-care (01) ==
LOC: HO.HCS 13:09
PROVIDERS: PCP Internal Medicine; Visit Provider Internal Medicine
DX: I25.10 Atherosclerotic heart disease of native coronary artery without angina pectoris (principal); Z95.1 Presence of aortocoronary bypass graft; E11.65 Type 2 diabetes mellitus with hyperglycemia; I10 Essential (primary) hypertension; E78.00 Pure hypercholesterolemia, unspecified
CPT/HCPCS: 99214; G2211

== ENCOUNTER 2025-03-08 14:19 | Outpatient (AMB) | payer OTHER, SELFPAY ==
[2025-03-08 14:22] VITALS: BP 130/80; PULSE 73; O2SAT 97; BMI 31.9
--- NOTE | 2025-03-08 14:22 | A.OFFVIS_ITS ---
Vital Signs 03/08/25 14:22 Height 5 ft 3 in Weight 180 lb BMI 31.9 BP 130/80 Blood Pressure Location Rt brachial Position Sitting Pulse 73 Pulse Source Pulse Oximeter Pulse Oximetry (%) 97 Oxygen Delivery Method Room Air Intake Visit Reasons: Obstructive sleep apnea Allergies oxycodone Allergy (Unknown, Verified 03/08/25 14:26) rash adhesive tape Adverse Reaction (Intermediate, Verified 03/08/25 14:26) Itching lisinopril Adverse Reaction (Intermediate, Verified 03/08/25 14:26) leg swelling metformin Adverse Reaction (Intermediate, Verified 03/08/25 14:26) diarrhea HPI HPI Obstructive sleep apnea: Details: 69-year-old lady, lifetime nonsmoker, followed for underlying mild to moderate persistent asthma, environmental allergies, and moderate ELAINE.? She continues to use Breo and albuterol MDI/nebs with good control of her underlying symptoms.? She denies any recent exacerbations of her underlying asthma. Patient has not been using her CPAP machine. She did have 4 vessel CABG in June of 2024. She does have worsening environmental allergy symptoms and has been requiring to use her Flonase more often. PENDING SALE TO [facility] Medical History (Updated 10/06/24 @ 19:31 by Precious Orourke MD) Class 2 obesity with alveolar hypoventilation and body mass index (BMI) of 37.0 to 37.9 in adult Carpal tunnel syndrome Left foot drop Chronic kidney disease Asthma Hypercholesterolemia Hypertension Type 2 diabetes mellitus with hyperglycemia Surgical History (Updated 10/06/24 @ 20:07 by Precious Orourke MD) S/P CABG x 4 Status post aorto-coronary artery bypass graft S/P cardiac catheterization H/O lumbosacral spine surgery History of cholecystectomy History of section History of hysterectomy Family History Father Myocardial infarction Mother Pulmonary embolism Paternal Aunt Breast cancer Social History Housing: House Alcohol intake: never Patient Tobacco Use Status: Never used Tobacco e-Cigarette/Vaping Use: Never Used Second Hand Smoke Exposure: Yes service: No Current occupational status: employed Current occupational exposures/hazards: No Cognitive needs: No Hearing needs: No Vision needs: No Review of Systems Const Denies daytime sleepiness, Denies excessive sweating, Denies fatigue, Denies fever(s), Denies lethargy, Denies malaise, Denies night sweats, Denies snoring and Denies weight loss Eyes Denies blurry vision and Denies itchy eyes ENT Denies nasal congestion, Denies post nasal drip, Denies sinus pain, Denies sinus pressure and Denies other ( Thrush) Card Denies chest pain, Denies pedal edema, Denies dyspnea, Denies orthopnea and De nies paroxysmal nocturnal dyspnea Resp Denies cough, Denies hemoptysis, Denies excessive phlegm production, Denies dyspnea, Denies snoring and Denies wheezing GI Denies abdominal pain and Denies heartburn Musc Denies myalgias, Denies arthralgias and Denies joint swelling Skin/Breast Denies rash Neuro Denies memory loss and Denies seizure-like activity Psych Denies abnormal sleep pattern, Denies anxiety and Denies memory loss Endo Denies excessive sweating, Denies fatigue and Denies heat intolerance Seun/Lymph Denies easy bruising Aller/Immun Denies itchy eyes, Denies seasonal rhinorrhea and Denies wheezing Physical Exam Vital Signs: Last Vital Signs Pulse 73 03/08/25 14:22 BP 130/80 03/08/25 14:22 Pulse Ox 97 03/08/25 14:22 Oxygen Delivery Method Room Air 03/08/25 14:22 BMI result Body Mass Index 31.9 Const General: no acute distress and alert Nutritional Appearance: not obese Orientation/consciousness: Other orientation findings ( oriented) HEENT Head: Yes atraumatic Eyes General: appearance normal, both eyes and all related structures Sclerae: sclerae normal EOM: EOMs intact bilaterally Neck Neck: Yes supple Lymphatic: no lymphadenopathy noted Resp Effort & Inspection: normal respiratory effort and no use of accessory muscles Auscultation: clear to auscultation bilaterally Cardio Rate: regular rate Rhythm: regular rhythm Heart sounds: no gallops, no murmurs and no rubs Skin General skin exam: other ( warm) Extrem General: No clubbing, No cyanosis and No edema Assessment & Plan Assessment & Plan (1) Asthma: Code(s): J45.909 - Unspecified asthma, uncomplicated Category: Medical Qualifiers: Asthma severity: mild Asthma persistence: intermittent Asthma complication type: uncomplicated Qualified Code(s): J45.20 - Mild intermittent asthma, uncomplicated Plan: Well controlled on Breo and albuterol MDI. Continue current regimen. (2) Environmental allergies: Code(s): Z91.09 - Other allergy status, other than to drugs and biological substances Category: Medical Plan: Now with worsening symptoms, but still reasonable controlled on Flonase. Continue current regimen. Medications: Refilled fluticasone furoate-vilanterol 200-25 mcg/dose (Breo Ellipta) 1 ea inhalation DAILY 60 ea 6RF Coding Level of Care Code Est Pt Level 4 (53133) Diagnoses Mild intermittent asthma without complication J45.20 Asthma severity: mild Asthma persistence: intermittent Asthma complication type: uncomplicated Environmental allergies Z91.09
--- OUTSIDE RECORDS SUMMARY | 2025-03-08 16:24 | XMS_ITS | Encounter Summary ---
Author Organization [facility] Address [address] [place] [address] Care Team Providers Care Plasterer Spot Name Role Phone Precious Orourke MD Primary Care Provider [phone] Encounter Details Date Type Department Care Team (Late st Contact Info) Description 11/01/2024 Lab Requisition [facility] - Main Lab [address] [facility] [place] [address] Sameera Cadet III, MD [address] [place] [address] [place] [address] Disorder of pigmentation, unspecified Social [...] residual atypical lesion 11/02/2024 2:10 PM EST [facility] Clinical Information Atypical back skin lesion, short stitch superior, long lateral per jar 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 Back, Upper, [...] specimen is sectioned in a cruciate manner. Tectonophysicist sections, to include the entirety of the [...] MD LAB PATHOLOGY ORDERABLES Fi nal Result [facility] [address] [place] [address], documented in this encounter Visit Diagnoses Diagnosis Disorder of pigmentation, unspecified documented in this encounter Care Teams Plasterer Spot Relationship Specialty Start Date End Date Precious Orourke MD [address] [facility] , [address] [facility] Physician Associ D/B/A: [facility] [place], [place] PCP - General 03/25/24 documented as of this encounter
== END 2025-03-08 14:45 | disposition home or self-care (01) ==
LOC: HO.HPS 14:20
PROVIDERS: PCP Internal Medicine; Visit Provider Internal Medicine Pulmonary Disease
DX: J45.20 Mild intermittent asthma, uncomplicated (principal); Z91.09 Other allergy status, other than to drugs and biological substances
CPT/HCPCS: 99214

== ENCOUNTER 2025-04-05 13:57 | Outpatient (AMB) | payer OTHER, SELFPAY ==
--- NOTE | 2025-04-05 14:01 | A.OFFPC_ITS ---
Vital Signs 04/05/25 14:02 Height 5 ft 3 in Weight 190 lb BMI 33.7 BP 138/84 Blood Pressure Location Lt brachial Position Sitting Intake Visit Reasons: pe Intake Note: Patient here for a physical exam Senior Inspector Required: No Accompanied by: Self / Same As Patient Allergies oxycodone Allergy (Unknown, Verified 04/05/25 14:19) rash adhesive tape Adverse Reaction (Intermediate, Verified 04/05/25 14:19) Itching lisinopril Adverse Reaction (Intermediate, Verified 04/05/25 14:19) leg swelling metformin Adverse Reaction (Intermediate, Verified 04/05/25 14:19) diarrhea Medication List - Last Reconciled 04/05/25 by Precious Orourke MD aspirin 81 mg PO DAILY atorvastatin 40 mg PO BEDTIME 90 days [AUTOPAP 5-20 cm H2O humidified AIR As directed] blood pressure monitor (Blood Pressure Kit) As directed blood sugar diagnostic (OneTouch Verio test strips) As directed Three times per day blood sugar diagnostic (OneTouch Verio test strips) As directed check blood sugars 3 times a day blood-glucose meter (OneTouch Verio Flex Start kit) As directed check blood sugars 3 times a day blood-glucose meter (OneTouch Verio Flex Meter) As directed carbidopa-levodopa 25-100 mg 1 tab PO QID [Diabetic shoes As directed] fluticasone furoate-vilanterol 200-25 mcg/dose (Breo Ellipta) 1 ea inhalation DAILY insulin degludec (Tresiba FlexTouch U-100 insulin) 45 units (0.45 mL) subcut Q24H 30 days insulin syringe-needle U-100 Use 1 needle TID lancets (FreeStyle Lancets) As directed check BS TID lancets (FreeStyle Lancets) Use 1 lancet three times a day lancets (OneTouch Delica Plus Lancet) DIRECTED THREE TIMES PER DAY levetiracetam 750 mg PO BID metoprolol tartrate 25 mg PO BID nebulizers (Aeroneb Go Nebulizer) As directed updraft treatment Q 4 hours pen needle, diabetic (Unifine Pentips) As directed pen needle, diabetic (1st Tier Unifine Pentips) Use 1 pen needle four times a day tirzepatide (Mounjaro) 7.5 mg (0.5 mL) subcut QWEEK 4 weeks Tobacco use date assessed: 10/06/24 Fall risk assessment: No Falls in past year Last assessed Fall Risk: 04/05/25 Dental Screening Dental Screen Date: 10/06/24 HPI HPI Comments History of Present Illness Details This is a 69-year-old female with diabetes mellitus type 2 that comes for her physical exam. A1c has increase and I will increase Mounjaro to 10 mg. Has diabetic eye exam tomorrow. Mammogram not done this year due to CABG x4 done less than a year ago. DEXA scan done 2023 and next DEXA scan should be 2025. No pneumonia vaccine up-to-date. Needs Tdap vaccine that will be place today. She also has history of seizures follow by Neurology. 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 Paternal Aunt Breast cancer Social History Housing: House Alcohol intake: never Patient Tobacco Use Status: Never used Tobacco e-Cigarette/Vaping Use: Never Used Second Hand Smoke Exposure: Yes service: No Current occupational status: employed Current occupational exposures/hazards: No Cognitive needs: No Hearing needs: No Vision needs: No Questionnaire Thrive Questionnaire Date Thrive assessed: 10/06/24 ADARSH-7 AMB Questionnaire ADARSH-7 Date ADARSH - 7 assessed: 10/06/24 Source: Developed by Drs. Micah Daily, Gloria Kidd, Kumar Arias and colleagues, with an educational jeremy from [employer]. Review of Systems Const All systems reviewed & are unremarkable except as noted in HPI and below Card Denies chest pain at rest, Denies chest pain with activity, Denies edema, Denies irregular heart rhythm, Denies claudication, Denies dyspnea, Denies dyspnea on exertion, Denies orthopnea, Denies paroxysmal nocturnal dyspnea and Denies slow heart rate Resp Denies cough, Denies dyspnea and Denies dyspnea on exertion GI Denies abdominal pain, Denies change in bowel habits, Denies excessive flatus, Denies nausea and Denies vomiting Denies urinary incontinence, Denies urinary hesitancy and Denies urinary urgency Musc Denies atrophy, Denies deformity and Denies limited range of motion Skin/Breast Denies bleeding lesions, Denies changing lesions and Denies rash Physical exam (Primary Care) Vital Signs: Last Vital Signs BP 138/84 04/05/25 14:02 BMI result Body Mass Index 33.7 Tobacco/Smoking Status: Tobacco use Status Tobacco use date assessed 10/06/24 04/05/25 14:10 Patient Tobacco Use Status Never used Tobacco 04/05/25 14:10 e-Cigarette/Vaping Use Never Used 04/05/25 14:10 Thrive Assessment: Date of Thrive Assessment Date Thrive assessed 10/06/24 04/05/25 14:10 HENMT Head: Yes normal to inspection, Yes normocephalic and Yes atraumatic Ears: external ears normal Eyes General: appearance normal, both eyes and all related structures Eyelids: Yes eyelids normal Conjunctivae: conjunctivae normal Neck Neck: Yes normal visual inspection and Yes supple Resp Effort & Inspection: normal respiratory effort Auscultation: clear to auscultation bilaterally Cardio Jugular venous distension: no JVD Rate: regular rate Rhythm: regular rhythm Heart sounds: S1 normal heart sound present and S2 normal heart sound present GI Inspection: Yes normal to inspection Palpation (GI): Soft to palpation and nontender Auscultation: normal bowel sounds Skin General skin exam: no rashes or lesions noted Neuro General: no focal motor deficits Extrem General: Yes full ROM Psych Appearance: grossly normal Results AMB Hemoglobin A1c AMB Hemoglobin A1c 8.6 % Last Edit by REINALDO Patel on 04/05/25 14:1 4 Immunizations Boostrix Tdap 2.5 Lf unit-8 mcg-5 Lf/0.5 mL intramuscular syringe Performing Provider: Precious Orourke MD [facility] Administered by: REINALDO Patel on 04/05/25 14:43 Dose Route Admin Location Dispensed Lot Number Expiration Date NDC Field Director 0.5 mL IM Left Deltoid 0.5 mL [id number] 05/27/27 50543-430-04 [employer] Total Dispensed Waste 0.5 mL 0 % VIS Given Date VIS Provided VIS Publication Date 04/05/25 Single Vaccine 24 Eligibility Eligibility Date Funding Source Not [facility] Eligible 04/05/25 Private Results Reviewed Results Reviewed: Laboratory Last Values Hgb A1c (Clinic) 8.6 % (4.0-6.0) H 04/05/25 14:01 Coding Level of Care Code Est Pt Prev Care >65y(81627) Diagnoses Physical exam Z00.00 Type 2 diabetes mellitus with hyperglycemia, without long-term current use of insulin E11.65 Diabetes mellitus termite inspector insulin use: without prison use Seizure R56.9 Time Spent (min) 35 Assessment & Plan Assessment & Plan (1) Physical exam: Code(s): Z00.00 - Encounter for general adult medical examination without abnormal findings Category: Medical (2) Type 2 diabetes mellitus with hyperglycemia: Code(s): E11.65 - Type 2 diabetes mellitus with hyperglycemia Category: Medical Qualifiers: Diabetes mellitus termite inspector insulin use: without prison use Qualified Code(s): E11.65 - Type 2 diabetes mellitus with hyperglycemia (3) Seizure: Comment: January 2021, Seizures Code(s): R56.9 - Unspecified convulsions Category: Medical Plan A1c goal is equal or less than 7%. Mounjaro was increased. Continue insulin and other current medications. Diabetic eye exam tomorrow. Blood pressure goal is equal or less than 130/80. LDL goal is less than 70. Follow-up with Cardiology. DEXA scan done 2025. Tdap vaccine done today. Orders: Orders AMB Hemoglobin A1c Today E11.65 - Type 2 diabetes mellitus with hyperglycemia TDaP Immunization Today Z23 - Encounter for immunization Vitamin D 25-OH Total Today E55.9 - Vitamin D deficiency, unspecified Medications: New tirzepatide (Mounjaro) 10 mg (0.5 mL) subcut QWEEK 2 mL 0RF 4 weeks E11.65 - Type 2 diabetes mellitus with hyperglycemia Changed From insulin syringe-needle U-100 (BD Insulin Syringe Ultra-Fine) Use 1 needle TID 100 ea 6RF To insulin syringe-needle U-100 Use 1 needle TID 100 ea 6RF Discontinued tirzepatide (Victorianoro) Discontinued Reason: Patient Completed Course 7.5 mg (0.5 mL) subcut QWEEK 4 weeks 2 mL 0RF E11.65 - Type 2 diabetes mellitus with hyperglycemia
[2025-04-05 14:02] VITALS: BP 138/84; BMI 33.7
--- OUTSIDE RECORDS SUMMARY | 2025-04-05 14:41 | XMS_ITS | Patient Health Record ---
Author Organization [facility] Address [address] [place] [address] Care Team Providers Care Defense Attorney Name Role Phone Stephanie Neri Unavailable [phone] Allergies Allergen (clinical drug ingredient) Drug/Non Drug [...] 50 MG 1 tablet Orally Once a day; Duration: 30 day(s) Active BD Pen - as [...] 40 MG 1 tablet Orally Once a day; Duration: 30 day(s) Active Lantus SoloStar 100 UNIT/ML as directed Subcutaneous Act sreekanth Aspir-Low 81 MG 1 tablet Orally Once a day; Duration: 30 day(s) Active Immunizations Vaccine Route Administration [...] Problem Status W/U Status Risk Notes Problem Acquired hammer toe of left foot ([id number] ) Hammer toe of left foot (M20.42) Active confirmed Problem Polyneuropathy due to type 2 diabetes mellitus (560919022) Type 2 diabetes mellitus with polyneuropathy (E11.42) Active confirmed Plan Of Treatment No Information Insurance Providers Payer Name Payer Address Payer Phone Subscriber Number Group Number Insured Name Patient Relationship to Insured Coverage Start Date Coverage End Date [employer] [address] [place] [phone] [id number] Daya Bobo Self - patient is the insured Medical (General) History Medical History History ICD Code type II diabetes High blood pressure Kidney disease Epilepsy Surgical History Surgery Date(Month/Year) spine surgery left leg surgery upper thigh - Sciatica gall bladder Hospitalization History Reason Date(Month/Year) [facility] 01/23/21
--- OUTSIDE RECORDS SUMMARY | 2025-04-05 14:41 | XMS_ITS | Encounter Summary ---
Author Organization [facility] Address [id number] [place] [id number] Care Team Providers Care Wet And Dry Sugar Bin Operator Name Role Phone Precious Orourke MD Primary Care Provider [phone] Encounter Details Date Type Department Care Team (Late st Contact Info) Description 11/01/[address] 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 Back, [...] specimen is sectioned in a cruciate manner. Retort Engineer sections, to include the entirety of the scar, are submitted as follows: 1, cruciate medial and lateral tips (lateral epidermis inked green), two pieces 2-4, sequential transverse cross-sections from lateral to medial to include the entirety of the scar, two pieces each BART 11/02/2024 2:10 PM [facility] Disclaimer Unless otherwise specified, all tissue is 10% NB formalin fixed and paraffin embedded. 11/02/2024 2:10 PM [facility] Tissue Upper back structure / Unknown 11/01/2024 11/01/2024 3:20 PM EST us Sameera Cadet III, MD LAB PATHOLOGY ORDERABLES Fi nal Result [facility] [address] [place] [address], documented in this encounter Visit Diagnoses Diagnosis Disorder of pigmentation, unspecified documented in this encounter Care Teams Wet And Dry Sugar Bin Operator Relationship Specialty Start Date End Date Precious Orourke MD [address] [facility] , [address] [facility] [place] PCP - General 03/25/24 documented as of this encounter
== END 2025-04-05 14:44 | disposition home or self-care (01) ==
LOC: HO.HMCH 13:57
PROVIDERS: PCP Internal Medicine; Visit Provider Internal Medicine
DX: Z00.00 Encounter for general adult medical examination without abnormal findings (principal); E11.65 Type 2 diabetes mellitus with hyperglycemia; R56.9 Unspecified convulsions; Z23 Encounter for immunization

== ENCOUNTER → 2025-04-05 13:57 | Outpatient (BNVA) | payer OTHER, SELFPAY | PROVIDERS: PCP Internal Medicine; Visit Provider Internal Medicine | DX: Z00.00 Encounter for general adult medical examination without abnormal findings (principal); Z23 Encounter for immunization; E11.65 Type 2 diabetes mellitus with hyperglycemia; R56.9 Unspecified convulsions; Z79.85 Long-term (current) use of injectable non-insulin antidiabetic drugs | CPT/HCPCS: 83036; 90471; 90715 ==

== ENCOUNTER 2025-09-05 13:52 | Outpatient (AMB) | payer OTHER, SELFPAY ==
--- NOTE | 2025-09-05 13:56 | MHC.OFFVIS ---
Intake Visit Reasons: 1yr Allergies oxycodone Allergy (Unknown, Verified 04/05/25 14:19) rash adhesive tape Adverse Reaction (Intermediate, Verified 04/05/25 14:19) Itching lisinopril Adverse Reaction (Intermediate, Verified 04/05/25 14:19) leg swelling metformin Adverse Reaction (Intermediate, Verified 04/05/25 14:19) diarrhea Medication List - Last Reconciled 09/05/25 by Magda Garcia CNP aspirin 81 mg PO DAILY atorvastatin 40 mg PO BEDTIME 90 days [AUTOPAP 5-20 cm H2O humidified AIR As directed] blood pressure monitor (Blood Pressure Kit) As directed blood sugar diagnostic (OneTouch Verio test strips) As directed Three times per day blood sugar diagnostic (OneTouch Verio test strips) As directed check blood sugars 3 times a day blood-glucose meter (OneTouch Verio Flex Start kit) As directed check blood sugars 3 times a day blood-glucose meter (OneTouch Verio Flex Meter) As directed [Diabetic shoes As directed] fluticasone furoate-vilanterol 200-25 mcg/dose (Breo Ellipta) 1 ea inhalation DAILY insulin degludec (Tresiba FlexTouch U-100 insulin) 45 units (0.45 mL) subcut Q24H 30 days insulin syringe-needle U-100 Use 1 needle TID lancets (FreeStyle Lancets) As directed check BS TID lancets (FreeStyle Lancets) Use 1 lancet three times a day lancets (OneTouch Delica Plus Lancet) DIRECTED THREE TIMES PER DAY levetiracetam 750 mg PO BID metoprolol tartrate 25 mg PO BID nebulizers (Aeroneb Go Nebulizer) As directed updraft treatment Q 4 hours pen needle, diabetic (Unifine Pentips) As directed pen needle, diabetic (1st Tier Unifine Pentips) Use 1 pen needle four times a day tirzepatide (Mounjaro) 10 mg (0.5 mL) subcut QWEEK 4 weeks HPI Comments Details: She was doing okay. She was taking levetiracetam twice a day, no medication side effects. No seizures. Mood was okay. Sleep was okay. She had CABG x4 in 06/2024. She had new onset seizure 01/23/2021 and had second one 04/03/2021 with tongue biting and gen T/C activity. Post ictal state. She has no recall of either. She woke up in [facility] ER in agitated state with her tongue bitten quite severely. She had been incontinent of bowels and probably of urine. Her who was in the shower heard her and come out. He found her on her right side on the floor shaking. No other description available. No previous history of seizures. Blood sugar was normal at that time. No history of head trauma. Her son has seizures. She has never had a febrile convulsion as a child or seizures as a child. She reports having blank spells for 5-6 years and has no recall of it. 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 Paternal Aunt Breast cancer Social History Housing: House Alcohol intake: never Patient Tobacco Use Status: Never used Tobacco e-Cigarette/Vaping Use: Never Used Second Hand Smoke Exposure: Yes service: No Current occupational status: employed Current occupational exposures/hazards: No Cognitive needs: No Hearing needs: No Vision needs: No Review of Systems Const Denies chills, Denies daytime sleepiness, Denies difficulty sleeping, Denies fatigue, Denies fever(s), Denies frequent falls, Denies headache(s), Denies increased appetite, Denies poor appetite, Denies snoring, Denies weakness, Denies weight gain and Denies weight loss Eyes Denies loss of vision ENT Denies vertigo, Denies dizziness, Denies headache(s) and Denies neck pain Card Denies chest pain at rest, Denies chest pain with activity, Denies syncope, Denies leg edema, Denies palpitations, Denies dyspnea and Denies dyspnea on exertion Resp Denies cough, Denies dyspnea, Denies dyspnea on exertion and Denies snoring GI Denies abdominal pain, Denies constipation, Denies heartburn, Denies diarrhea and Denies nausea Denies urinary frequency, Denies urinary incontinence and Denies urinary urgency Musc Denies abnormal gait, Denies back pain, Denies myalgias, Denies arthralgias, Denies neck pain, Denies numbness and Denies tingling Neuro Denies abnormal gait, Denies vertigo, Denies dizziness, Denies syncope, Denies frequent falls, Denies headache(s), Denies lack of coordination, Denies loss of vision, Denies memory loss, Denies numbness, Denies Other visual disturbances, Denies restless legs, Denies seizure-like activity, Denies tingling, Denies paresthesias, Denies tremor(s) and Denies weakness Psych Denies anxiety, Denies depression, Denies auditory hallucinations, Denies memory loss and Denies visual hallucinations Endo Denies fatigue and Denies palpitations Physical Exam Const Other: General Appearance:? normal, in no acute distress. Heart:? S1, S2 normal, no murmurs. Lungs:? clear anteriorly and posteriorly. Musculoskeletal:? normal. Extremities:? no edema. Psych:? alert, oriented, cognitive function intact, cooperative with exam. Neuro Other: Abnormal Neurological Findings:?Absent left ankle reflex. Mental Status: alert and oriented X 3. Normal attention, orientation, memory, and affect. Cranial Nerves: Pupils are equal, round, and reactive to light. External ocular muscles are intact. Visual ornelas are full, no ptosis. Face is symmetrical, no facial weakness or droop. Facial sensations are normal. Tongue protrudes in midline. Palate elevates symmetrically. Shoulder shrugging is normal Motor Examination: Normal muscle tone, bulk and strength. No atrophy or fasciculations. No drift of the extended upper extremities. DTR 2+ with absent left ankle reflex. Plantars are flexor. Sensory Exam: Normal light touch, temperature, pinprick, vibration, and joint-position sensations. Rhomberg sign is absent. Coordination: No ataxia. No titubation. Gait Exam: Within normal limits. Cerebellar Signs: [id number] is okay. Extrapyramidal System: No tremor, rigidity with normal facial expressions. No bradykinesia. No bradyphrenia. Normal arm swing and posture. No propulsion or retropulsion. Speech: Normal. Results Reviewed Results Reviewed: 24 hr ambulatory EEG rescheduled for 05/07/21 01/24/21 CT brain, MRI brain and EEG were normal at [facility] 05/07/21 24 hr EEG normal. Assessment & Plan Assessment & Plan (1) Seizure disorder: Code(s): G40.909 - Epilepsy, unspecified, not intractable, without status epilepticus Category: Medical Plan: Continue levetiracetam 750mg 1 tablet twice a day. Follow up in 1 year or sooner as needed. Medications: Changed From levetiracetam 750 mg PO BID To levetiracetam 750 mg PO BID 180 tabs 3RF 90 days Coding Level of Care Code Est Pt Level 3 (30885) Diagnoses Seizure disorder G40.909
== END 2025-09-05 14:25 | disposition home or self-care (01) ==
LOC: HO.HSM 13:52
PROVIDERS: PCP Internal Medicine; Referring Provider Family Medicine; Visit Provider Registered Nurse
DX: G40.909 Epilepsy, unspecified, not intractable, without status epilepticus (principal)
CPT/HCPCS: 99213